=== PATIENT | male | born 1975 | race Caucasian/White ===

== ENCOUNTER 2020-09-15 13:13 | Outpatient (CLI) | payer OTHER, SELFPAY ==
--- NOTE | ~2020-09-15 | XR_ITS ---
XR lumbar spine 2-3V DATE: 09/15/2020 13:37 INDICATION: Chronic back pain TECHNIQUE: AP, lateral, coned lateral lumbosacral views COMPARISON: 04/19/2013 lumbar spine FINDINGS: Again noted is posterior and interbody spinal fusion at L5-S1. No interval hardware fractur e or displacement. No fracture or bone destruction is evident. There is spurring of the anterosuperior aspect of the fifth lumbar vertebral body. The lumbar intersp aces are relatively preserved however. The included lower thoracic and lumbar pedicles appear intact. The sacroiliac joints appear normal. IMPRESSION: Status post posterior and interbody spinal fusion at L5-S1; no significant interval khan e since 04/19/2013 Reviewed, dictated and finalized at location A. [employer] IMPRESSION: Status post posterior and interbody spinal fusion at L5-S1; no sign ificant interval change since 04/19/2013
== END 2020-09-15 13:14 | disposition home or self-care (01) ==
PROVIDERS: PCP Physician Assistant; Visit Provider Physician Assistant
DX: G89.29 Other chronic pain (principal); Z98.1 Arthrodesis status
CPT/HCPCS: 72100

== ENCOUNTER 2021-04-18 16:22 | Emergency (ER) | payer OTHER, SELFPAY ==
[2021-04-18 16:43] VITALS: BP 126/81; PULSE 79; RESP 16; TEMP 36.2; O2SAT 100
--- NOTE | 2021-04-18 16:44 | ED.ABDPAIN ---
HPI - Abdominal Pain General Chief Complaint: Abdominal Pain Stated Complaint: Abdominal Pain Time Seen by Provider: 04/18/21 16:44 Source: patient and RN notes reviewed Mode of arrival: ambulatory Limitations: no limitations History of Present Illness HPI narrative: 45-year-old male presents to the [facility] with complaints of left lower abdominal pain radiating into the left testicle. Denies any nausea vomiting or diarrhea last bowel movement was today, this morning which was normal. Patient denies any testicular swelling or redness. No issues with urination. States his last bowel movement was normal. Denies fevers, chest pain, abdominal pain. Patient reports the pain started yesterday. Has gradually gotten worse, took his home Vicodin with minimal to no relief. Related Data Allergies Allergy/AdvReac Type Severity Reaction Status Date / Time No Known Allergies Allergy Verified 10/26/18 19:01 Review of Systems Review of Systems: All systems reviewed & are unremarkable except as noted in HPI and below Constitutional: Constitutional: Reports no additional constitutional complaints, Denies chills and Denies fever(s) Eyes: Eyes: Reports no additional eye complaints ENT: Reports system reviewed and no additional complaints, except as documented Cardiovascular: Cardiovascular: Reports no additional cardiovascular complaints and Denies chest pain Respiratory: Respiratory: Reports no additional respiratory complaints, Denies cough and Denies dyspnea Gastrointestinal: Gastrointestinal: Reports abdominal pain (Left lower quadrant), Denies diarrhea, Denies nausea and Denies vomiting Genitourinary: Genitourinary: Reports no additional male genitourinary complaints and Reports testicular pain (Left) Musculoskeletal: Musculoskeletal: Reports no additional musculoskeletal complaints Integumentary/Breasts: Skin/Breast: Reports system reviewed and no additional complaints, except as docu Neurologic: Reports system reviewed and no additional complaints, except as documented Psychiatric: Psychiatric: Reports no additional psychiatric complaints Allergic/Immunologic: Allergic/Immunologic: Reports no additional allergic/immunologic complaints [facility] Past Medical History Medical History (Updated 04/18/21 @ 17:42 by Janie Banks) Asthma Hypertension Surgical History Surgical History (Updated 04/18/21 @ 17:42 by Janie Banks) No significant past surgical history Family History Family History Mother Family history of hepatitis Depression Asthma Family history of alcoholism Social History Social History (Reviewed 04/18/21 @ 17:42 by Janie Salguero Smoking status: Heavy tobacco smoker Second hand tobacco smoke exposure: Yes Alcohol intake: current Comments At the time of my signature, I reviewed and agree with the nursing past medical, surgical, social, and family history. There is no relevant family history pertinent to the patient complaint. Exam Const: General: healthy appearing, no acute distress and alert Nutritional Appearance: well nourished and obese Orientation/consciousness: patient oriented x3 Limitations: no limitations HENMT: Head: normal to inspection Eyes: Conjunctivae: conjunctivae normal Pupils: Equal, round and reactive pupils present Neck: Neck: normal visual inspection, no lymphadenopathy and no meningeal signs Chest: Chest palpation & inspection: normal inspection of the chest Resp: Effort & Inspection: normal respiratory effort and no use of accessory muscles Auscultation: clear to auscultation bilaterally, no crackles, no rales, no rhonchi and no wheezes Cardio: Rate: regular rate Rhythm: regular rhythm GI: GI Palp: Yes Soft to palpation, Yes Tenderness to palpation present (GI) (Left lower quadrant, pain radiates to the left testicle) and Yes Rebound tenderness present (Left lower quadrant) : General: Yes no CVA te
== END 2021-04-18 19:00 | disposition short-term general hospital (02) ==
PROVIDERS: Emergency Provider Nurse Practitioner
DX: R10.824 Left lower quadrant rebound abdominal tenderness (principal); I10 Essential (primary) hypertension; J45.909 Unspecified asthma, uncomplicated; F17.200 Nicotine dependence, unspecified, uncomplicated
CPT/HCPCS: 99212; G0463

== ENCOUNTER 2022-02-14 14:19 | Outpatient (CLI) | payer OTHER, SELFPAY ==
--- NOTE | ~2022-02-14 | US_ITS ---
EXAMINATION: US scrotum doppler DATE: 02/14/2022 15:38 INDICATION: Testicular pain and palpable abnormality. TECHNIQUE: Grayscale and Doppler ultrasound images of the testes were obtained. COMPARISON: None. FINDINGS: The right testis measures 5.5 x 2.4 x 3.0 cm. The left testis measures 5.2 x 2.5 x 3.3 cm. There is normal vascular flow to both testes. The right epididymis is normal with normal vascular mami w. The left epididymis contains a 4 mm cyst, otherwise normal appearance and color flow. No hydrocele s. Small varicocele on the left. IMPRESSION: 1. Small left varicocele. 2. Small left epididymal cyst. 3. No intratesticular mass. Reviewed, dictated and finalized at location [facility].
== END 2022-02-14 14:20 | disposition home or self-care (01) ==
PROVIDERS: PCP Physician Assistant; Visit Provider Physician Assistant
DX: N50.3 Cyst of epididymis (principal)
CPT/HCPCS: 76870; 93976

== ENCOUNTER 2022-02-21 14:34 | Outpatient (CLI) | payer OTHER, SELFPAY ==
--- NOTE | 2022-02-28 13:28 | WPDPFTINT ---
PFT Procedure Performed PFT Procedure Performed Plethysmography (Lung Vol) Diffusing Cap (DLCO) Flow Vol Loop Spirometry w/o Bronchodil PFT Interpretation DOS: 02/21/2022 REQUESTING: Amy Aguirre PA-C REASON FOR TESTING: mild asthma, COPD PULMONARY FUNCTION TESTS Results are reliable and reproducible. Spirometry: FEV1 53% predicted, 2.37 L, moderately reduced. FVC 76% predicted, 4.28 L, mildly reduced. FEV1/FVC is 55% predicted. This is consistent with airflow obstruction. JVR08-92% is 27%, severely decreased. No bronchodilator was administered. Lung volumes: Total lung capacity 103%, 7.76 L, normal. FRC is 122%, 4.71 L, normal. ERV is 64%, 1.17 L, decreased. Residual volume 165%, 3.45 L, elevated consistent with air trapping. RV/TLC is elevated 44% consistent with air trapping. Airway resistance elevated 405%. Diffusion: DLCO 76%, normal. DLCO/VA is 98%. Flow volume loop: Scooping of the expiratory limb consistent with airflow obstruction IMPRESSION: Moderate obstructive ventilatory impairment, severe air trapping, mild diffusion impairment without bronchodilator administration. In the proper clinical setting, this pattern may be consistent with asthma and COPD overlap. Noemy Flores MD
== END 2022-02-21 14:35 | disposition home or self-care (01) ==
LOC: ANHPFT 14:35
PROVIDERS: PCP Physician Assistant
DX: J45.30 Mild persistent asthma, uncomplicated (principal); R94.2 Abnormal results of pulmonary function studies
CPT/HCPCS: 94375; 94726; 94729

== ENCOUNTER 2022-05-03 13:11 | Emergency (ER) | payer OTHER, SELFPAY ==
[2022-05-03 13:26] VITALS: BP 162/111; PULSE 77; RESP 16; TEMP 36.7; O2SAT 98
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
[2022-05-03] MEDS: TETANUS,DIPHTHERIA,AC PERTUSSIS ADULT (0.5 ML) BOOSTRIX IM (14:49)
== END 2022-05-03 15:11 | disposition home or self-care (01) ==
PROVIDERS: Emergency Provider Nurse Practitioner; PCP Physician Assistant
DX: S05.02XA Injury of conjunctiva and corneal abrasion without foreign body, left eye, initial encounter (principal); W22.8XXA Striking against or struck by other objects, initial encounter; Z23 Encounter for immunization; J45.909 Unspecified asthma, uncomplicated; I10 Essential (primary) hypertension; F17.210 Nicotine dependence, cigarettes, uncomplicated
CPT/HCPCS: 90471; 90715; 99213; A9270; G0463

== ENCOUNTER 2023-03-02 09:41 | Outpatient (CLI) | payer OTHER, SELFPAY ==
--- NOTE | ~2023-03-02 | XR_ITS ---
XR_CERV2-3V_CR DATE: 03/02/2023 10:02 INDICATION: Right arm numbness TECHNIQUE: AP, open-mouth, lateral views COMPARISON: None FINDINGS: There is straightening of the cervical spine which may be due to muscle spasm. C1 and C2 are normally aligned and the odontoid process is intact. There is anterior spurring but preservation of disc spaces at C2-3, C3-4, C4-5 and C5-6. Moderate degenerative disc disease at C6-7, with posterior spurring. There is uncovertebral joint spu rring in particular on the right at C6-7. No fracture or dislocation or locked facet or prevertebral soft tissue swelling. IMPRESSION: Straightening of the cervical spine which may be due to muscle spasm Mild to moderate cervical spondylosis Prominent uncovertebral joint spurring on the right at C6-7, which would encroach upon the right C7 n eural foramen Reviewed, dictated and finalized at Location [facility]. Reviewed, dictated and finalized at location B. IMPRESSION: Straightening of the cervical spine which may be due to muscle spas m Mild to moderate cervical spondylosis Prominent uncovertebral joint spurring on the right at C6-7, which would encroa ch upon the right C7 neural foramen
== END 2023-03-02 09:42 | disposition home or self-care (01) ==
PROVIDERS: PCP Physician Assistant; Visit Provider Physician Assistant
DX: M47.22 Other spondylosis with radiculopathy, cervical region (principal)
CPT/HCPCS: 72040

== ENCOUNTER 2023-07-30 19:30 | Emergency (ER) | payer OTHER, SELFPAY ==
--- NOTE | ~2023-07-30 | XR_ITS ---
EXAMINATION: XR chest 2V 07/30/2023 19:45 INDICATION: Shortness of breath. COPD. PROCEDURE: PA and lateral views of the chest COMPARISON: 12/04/2016 FINDINGS: The lungs are clear. The cardiomediastinal silhouette is within normal limits. There are no pleural effusions. There is no pneumothorax suspected. IMPRESSION: 1: NO ACUTE CARDIOPULMONARY DISEASE. Reviewed, dictated and finalized at location A. [employer]
[2023-07-30 19:37] VITALS: BP 188/99; PULSE 87; RESP 16; TEMP 36.7; O2SAT 100
--- NOTE | 2023-07-30 19:39 | ECG_ITS ---
Measurements Intervals [place] Rate: 76 P: 68 TN: 168 QRS: 80 QRSD: 99 T: 57 QT: 361 QTc: 407 Interpretive Statements SINUS RHYTHM NO PREVIOUS ECG AVAILABLE FOR COMPARISON Electronically Signed On 07-31-2023 13:28:45 [employer] by Andrea Harry M.D.
--- NOTE | 2023-07-30 19:51 | ED.SOB ---
HPI - SOB/Dyspnea General Chief Complaint: Shortness of Breath/Dyspnea Stated Complaint: SOB/Sinus Time Seen by Provider: 07/30/23 19:51 Source: patient Mode of arrival: ambulatory Limitations: no limitations History of Present Illness HPI Narrative: 47-year-old male presents with cough for 1 week. Reports shortness breath with exertion starting today. Afebrile. Patient is current everyday smoker. History of COPD. Using Symbicort twice a day and albuterol inhaler. Concerned he may have pneumonia. Patient's blood pressure elevated today. States he is not taking his medication for several days because he often forgets. Denies chest pain. All systems reviewed and negative except as noted above. Related Data Home Medications Medication Instructions Recorded Confirmed albuterol sulfate 90 mcg/actuation 90 mcg inhalation DIRECTED 05/03/22 07/30/23 aerosol inhaler (ProAir HFA) budesonide-formoterol HFA 160 160 inh inhalation DIRECTED 05/03/22 07/30/23 mcg-4.5 mcg/actuation aerosol inhaler (Symbicort) lisinopril 10 1 tablet PO DIRECTED 05/03/22 07/30/23 mg-hydrochlorothiazide 12.5 mg tablet Allergies Allergy/AdvReac Type Severity Reaction Status Date / Time No Known Allergies Allergy Verified 07/30/23 19:34 Review of Systems Review of Systems: CONSTITUTIONAL: Denies fever, chills, or sweats. EYES: Denies visual changes, redness, or discharge. ENT: Denies rhinorrhea, congestion, sore throat, or otalgia. CARDIOVASCULAR: Denies chest pain, palpitations, or edema. RESPIRATORY: Reports cough and dyspnea with exertion. GASTROINTESTINAL: Denies abdominal pain, nausea, vomiting, or diarrhea. GENITOURINARY: Denies dysuria or hematuria. SKIN: Denies rash or itching. MUSCULOSKELETAL: Denies back pain, joint pain, or myalgia. NEUROLOGIC: Denies headache, numbness, or weakness. PSYCHIATRIC: Denies anxiety or depression. All other systems reviewed are negative, except as documented in HPI. [facility] Past Medical History Medical History Asthma Hypertension Surgical History Surgical History No significant past surgical history Family History Family History Mother Family history of hepatitis Depression Asthma Family history of alcoholism Social History Social History Smoking packs per day: 1 Smoking cigarettes per day: 20.0 Smoking status: Heavy tobacco smoker Second hand tobacco smoke exposure: Yes Alcohol intake: current Substance use: current Substance use type: marijuana Gender identity (if verbalized by the patient): Male Spiritual care concerns: No Comments At time of signature, agree with nursing past medical, surgical, social and family history. There is no relevant family history pertinent to the presenting complaint. Exam Narrative: GENERAL: This is a well-nourished, well-developed patient, in no apparent distress. HEAD: normocephalic, atraumatic. EYES: PERRL. Sclera clear/white. Vision is grossly intact. EARS: External ears normal, auditory canals clear and without drainage, TMs normal without perforation. Hearing grossly intact. NOSE: External nose normal with no obvious nasal discharge, nares without redness, no rhinorrhea. THROAT: Mucous membranes moist, posterior pharynx clear. NECK: Neck supple, non-tender without lymphadenopathy, masses or thyromegaly. CARDIOVASCULAR: Regular rate and rhythm without murmurs, gallops, or rubs. RESPIRATORY: coarse lung sounds throughout all lung morales. Breath sounds equal bilaterally. No wheezes, rales SKIN: warm, Dry, intact with no suspicious lesions or rash, good texture and turgor. NEURO: awake, alert, and oriented to person, place and time. There were no obvious foca
[2023-07-30] MEDS: IPRATROPIUM BR 0.02% INH SOLN 0.5 MG/2.5 ML VIAL INHALATION (20:00)
[2023-07-30] MEDS: ALBUTEROL SULFATE NEB 2.5 MG/3 ML INH INHALATION (20:00)
[2023-07-30] MEDS: predniSONE 20 MG TABLET 40 MG PO (20:04)
[2023-07-30 20:20] VITALS: BP 154/73
== END 2023-07-30 20:30 | disposition home or self-care (01) ==
PROVIDERS: Emergency Provider Nurse Practitioner Family; PCP Physician Assistant
DX: J20.9 Acute bronchitis, unspecified (principal); J44.9 Chronic obstructive pulmonary disease, unspecified; I10 Essential (primary) hypertension; J45.909 Unspecified asthma, uncomplicated; F17.210 Nicotine dependence, cigarettes, uncomplicated; Z79.899 Other long term (current) drug therapy
CPT/HCPCS: 71046; 93005; 99213; G0463; J7512

== ENCOUNTER 2023-11-29 16:14 | Emergency (ER) | payer OTHER, SELFPAY ==
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
[2023-11-29 16:24] VITALS: BP 140/89; PULSE 81; RESP 16; TEMP 36.6; O2SAT 100
== END 2023-11-29 16:40 | disposition home or self-care (01) ==
PROVIDERS: Emergency Provider Nurse Practitioner; PCP Physician Assistant
DX: T21.12XA Burn of first degree of abdominal wall, initial encounter (principal); X11.8XXA Contact with other hot tap-water, initial encounter; Y99.0 Civilian activity done for income or pay; F17.210 Nicotine dependence, cigarettes, uncomplicated; F12.90 Cannabis use, unspecified, uncomplicated; J45.909 Unspecified asthma, uncomplicated; I10 Essential (primary) hypertension
CPT/HCPCS: 99212; G0463

== ENCOUNTER 2024-08-11 09:09 | Emergency (ER) | payer OTHER, SELFPAY ==
--- NOTE | ~2024-08-11 | XR_ITS ---
EXAMINATION: XR chest 2V DATE: 08/11/2024 10:23 INDICATION: 5 days of cough TECHNIQUE: PA and lateral views of the chest were obtained. COMPARISON: Chest radiograph dated 07/30/2023 FINDINGS: The lungs remain clear with no focal airspace opacities, pulmonary edema, pleural effusion or pneumot horax. The cardiomediastinal silhouette is normal. Mild thoracic spondylosis. IMPRESSION: 1. No acute cardiopulmonary disease. Reviewed, dictated and finalized at location [facility]. [facility]
[2024-08-11 09:17] VITALS: BP 110/85; PULSE 81; RESP 20; TEMP 36.5; O2SAT 98
--- NOTE | 2024-08-11 09:25 | ED.GENADULT ---
HPI - General Adult General Chief complaint: Upper Respiratory Infection Stated complaint: SOB/Asthma/Cough Time Seen by Provider: 08/11/24 09:45 History of Present Illness HPI narrative: Patient with asthma presents with complaints of cough, wheezing, shortness of breath. He reports symptoms have been present for about 5 days. He reports some associated chills and sweats. Has not taken his temperature. He has been taking all inhalers as prescribed. He works in public, is concerned about flu, COVID, pneumonia. Related Data Home Medications ?Medication ?Instructions ?Recorded ?Confirmed ?Last Taken ?Type albuterol sulfate 90 mcg/actuation 90 mcg inhalation DIRECTED 05/03/22 11/29/23 Unknown History aerosol inhaler (ProAir HFA) budesonide-formoterol HFA 160 160 inh inhalation DIRECTED 05/03/22 11/29/23 Unknown History mcg-4.5 mcg/actuation aerosol inhaler (Symbicort) lisinopril 20 mg tablet 20 mg PO DAILY 11/29/23 11/29/23 Unknown History Allergies Allergy/AdvReac Type Severity Reaction Status Date / Time No Known Allergies Allergy Verified 11/29/23 16:16 Review of Systems Review of Systems: All systems reviewed & are unremarkable except as noted in HPI and below Constitutional: Constitutional: Reports no additional constitutional complaints and Reports lethargy ENT: Reports system reviewed and no additional complaints, except as documented Cardiovascular: Cardiovascular: Reports no additional cardiovascular complaints Respiratory: Respiratory: Reports no additional respiratory complaints, Reports chest congestion, Reports cough, Reports dyspnea on exertion and Reports wheezing Gastrointestinal: Gastrointestinal: Reports no additional gastrointestinal complaints [facility] Past Medical History Medical History Hypertension Asthma Surgical History Surgical History No significant past surgical history Family History Family History Mother Family history of hepatitis Depression Asthma Family history of alcoholism Social History Social History Smoking packs per day: 1 Smoking cigarettes per day: 20.0 Smoking status: Heavy tobacco smoker Second hand tobacco smoke exposure: Yes Alcohol intake: current Substance use: current Substance use type: marijuana Gender identity (if verbalized by the patient): Male Spiritual care concerns: No Exam Const: General: cooperative, no acute distress, alert and awake Orientation/consciousness: oriented to person, oriented to place and oriented to time HENMT: Head: normal to inspection Mouth: Yes moist mucous membranes Resp: Effort & Inspection: normal respiratory effort and able to speak in complete sentences Auscultation: clear to auscultation bilaterally, no crackles, no rales, no rhonchi and wheezes scattered wheezes Cardio: Palpation: normal PMI Rate: regular rate Rhythm: regular rhythm Heart sounds: S1 normal heart sound present and S2 normal heart sound present Neuro: General: oriented to person, oriented to place and oriented to time Cranial nerves: Yes CN's II-XII intact bilaterally Psych: Appearance: grossly normal Thought process: Normal thought process present Insight: Good insight present (Psych) Judgement: Good judgement present (Psych) Course Course Level of Care: Express Care Visit Vital Signs Vital signs: Vital Signs Temperature 97.7 F 08/11/24 09:17 Pulse Rate 81 08/11/24 09:17 Respiratory Rate 20 08/11/24 09:17 Blood Pressure 110/85 08/11/24 09:17 Pulse Oximetry 98 08/11/24 09:17 Temperature 97.7 F 08/11/24 09:17 Pulse Rate 81 08/11/24 09:17 Respiratory Rate 20 08/11/24 09:17 Blood Pressure 110/85 08/11/24 09:17 Pulse Oximetry 98 08/11/24 09:17 Medical Decision Making [facility] Narrative Medical decision making narrative: Patient with asthma presents with symptoms of exacerbation. Negative COVID, negative flu. Chest x-ray without acute findings. Has been using inhalers as prescribed. Start prednisone, azithromycin additive anti-inflammatory effect. Patient is nontoxic appearing and in no distress. Discharge instructions reviewed with patient, as well as provided in writing per nursing staff. The instructions also include specific and strict return/GO TO THE ER as well as f/u information. All questions have been answered, and the patient deny any further questions with discharge and discharge plan. Some parts of this dictation were generated by voice recognition software and may contain typographical and/or grammatical inaccuracies. Differential Diagnosis Differential Diagnosis: Influenza, COVID, viral illness, pneumonia Medical Records Medical records reviewed: Yes I reviewed the external patient's medical records. Vital Signs Vital Signs: Vital Signs Temperature 97.7 F 08/11/24 09:17 Pulse Rate 81 08/11/24 09:17 Respiratory Rate 20 08/11/24 09:17 Blood Pressure 110/85 08/11/24 09:17 Pulse Oximetry 98 08/11/24 09:17 Temperature 97.7 F 08/11/24 09:17 Pulse Rate 81 08/11/24 09:17 Respiratory Rate 20 08/11/24 09:17 Blood Pressure 110/85 08/11/24 09:17 Pulse Oximetry 98 08/11/24 09:17 Lab Data Labs: Lab Results 08/11/24 Range/Units 09:20 POC Influenza A Ag Negative (Negative) POC Influenza B Ag Negative (Negative) POC SARS CoV-2 Ag Negative (Negative) Imaging Data My impression: No acute finding Radiologist's impression: [facility] [address] [place] [address] XRay Report Signed Patient: Fito Jimenez : 1975 MR#: [id number] Age: 48 Acct:[id number] Loc: [facility] ADM Date: 08/11/24Attending Dr: Ordering Physician: Matilde Gomez FNP Date of Service: 08/11/24 Procedure(s): XR chest 2V Accession Number(s): [id number] cc: Matilde Gomez FNP; Raheem, Brianda De La Rosa PA-C~ EXAMINATION: XR chest 2V DATE: 08/11/2024 10:23 INDICATION: 5 days of cough TECHNIQUE: PA and lateral views of the chest were obtained. COMPARISON: Chest radiograph dated 07/30/2023 FINDINGS: The lungs remain clear with no focal airspace opacities, pulmonary edema, pleural effusion or pneumothorax. The cardiomediastinal silhouette is normal. Mild thoracic spondylosis. IMPRESSION: 1. No acute cardiopulmonary disease. Reviewed, dictated and finalized at location [facility] signed by Chet Marrero M.D. 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 Follow-up with primary care provider. Emergency department for new or worse symptoms Patient Language: Nepali Prescriptions: New prednisone 50 mg tablet 50 mg PO DAILY Qty: 4 0RF azithromycin 250 mg tablet See Rx Instructions .ROUTE .COMPLEX Qty: 6 0RF Rx Instructions: For 250 mg dose pack: take 500 mg today (day 1), then 250 mg for 4 days (days 2-5) albuterol sulfate [Ventolin HFA] 90 mcg/actuation HFA aerosol inhaler 2 puff inhalation QID PRN (Reason: shortness of breath or wheezing) Qty: 8.5 0RF No Action albuterol sulfate [ProAir HFA] 90 mcg/actuation HFA aerosol inhaler 90 mcg INHALATION DIRECTED budesonide-formoterol [Symbicort] 160-4.5 mcg/actuation HFA aerosol inhaler 160 inh INHALATION DIRECTED lisinopril 20 mg tablet 20 mg PO DAILY Follow-up/Referrals: Raheem,ROYA Lemon [Primary Care Provider] - 2 Weeks Stand Alone Forms: Work/School Release IP Time of Disposition: 10:55
[2024-08-11 10:14] LABS: EDCOVIDSCREEN Negative (Negative); EDINFLUASCREEN Negative (Negative); EDINFLUBSCREEN Negative (Negative)
[2024-08-11] MEDS: predniSONE 20 MG TABLET 60 MG PO (10:52)
== END 2024-08-11 11:08 | disposition home or self-care (01) ==
PROVIDERS: Emergency Provider Nurse Practitioner Family; PCP Physician Assistant
DX: J45.901 Unspecified asthma with (acute) exacerbation (principal); Z20.822 Contact with and (suspected) exposure to COVID-19; I10 Essential (primary) hypertension; F17.210 Nicotine dependence, cigarettes, uncomplicated; F12.90 Cannabis use, unspecified, uncomplicated
CPT/HCPCS: 71046; 87426; 87804; 99213; G0463; J7512

== ENCOUNTER 2024-10-20 14:42 | Emergency (ER) | payer MEDICAID, SELFPAY ==
[2024-10-20 14:45] VITALS: BP 148/99; PULSE 97; RESP 18; TEMP 36.3; O2SAT 98
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
[2024-10-20 16:40] VITALS: BP 113/72; PULSE 89; RESP 15; TEMP 36.5; O2SAT 98
--- OUTSIDE RECORDS SUMMARY | 2024-10-20 17:12 | XMS_ITS | Referral Summary ---
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 C6-C7. No soft tissue abnormality is identified. Thoracic spine: Mild exaggeration of the thoracic kyphosis. Slight dextrocurvature of the thoracic spine. The alignment is otherwise maintained. The bones are mildly osteopenic. Vertebral bodies are normal in height without evidence of acute fracture. Bridging anterior osteophytes from T6 through T10 can be seen in diffuse idiopathic skeletal hyperostosis. There is up to moderate multilevel degenerative disc disease. Schmorl's nodes are present at multiple levels. The central canal is patent. There are varying degrees of mild facet osteoarthritis with the same degree of neural foraminal stenosis at these levels. No soft tissue abnormality is identified. Lumbar spine: Postoperative findings of posterior spinal fusion with bilateral rods and transpedicular screws and intervertebral disc fusion device at L5-S1 with associated laminectomy of L5 on S1. There is mild anterolisthesis of L4 on L5 but there is postoperative fusion as outlined above. The hardware appears intact. The bones are mildly osteopenic. Vertebral bodies are normal in height without evidence of acute fracture. There is mild multilevel degenerative disc disease. Mild spinal canal narrowing is noted. The high-grade central canal is patent. There are varying degrees of mild facet osteoarthritis with the same degree of neural foraminal stenosis at these levels. There is atherosclerotic calcification of the abdominal aorta and its branch vessels. Multiple hypodensities in the right kidney likely represent renal cysts. Partially visualized diverticulosis. Procedure Note Braden Garza MD - 10/08/2024 PROCEDURE: CT CERVICAL SPINE WO CONTRAST, CT THORACIC SPINE WOCONTRAST, CT LUMBAR SPINE WO CONTRAST, DATE/TIME OF EXAM: 10/08/2024 6:14 PM, LOCATION [facility] INDICATION: Trauma ADDITIONAL CLINICAL INFORMATION: Ordering Provider Reason For Exam: Trauma. Technologist Note: None. Additional: None. EXAMINATION: 1.Computed tomography (CT) of the cervical spine without contrast 2.CT of the thoracic spine without contrast 3.CT of the lumbar spine without contrast TECHNIQUE: CT of the cervical, thoracic, and lumbar spine was performed without contrast according to standard protocol. CT dose reduction technique was used, including Automated Exposure Control. COMPARISON: No prior study is available for comparison at the time ofthis dictation. FINDINGS: Cervical spine: The cervical spine is straightened with loss of cervical lordosis. The prevertebral soft tissue is normal in thickness. The mineralization ofthe bones is normal. Vertebral bodies are normal in height without evidenceof acute fracture. The craniocervical junction is normal. There is mild to moderate multilevel degenerative disc disease. Mild central canalstenosis is present in C4-C5, C6-7 secondary to osteophyte formation andbroad-based disc bulge There are varying degrees of mild facet osteoarthritis. There are varying degrees of mild to moderate multilevel uncovertebral joint osteoarthritis with the same degree of neural foraminal stenosis atthese levels most notable in C5-C6, and C6-C7. No soft tissue abnormality is identified. Thoracic spine: Mild exaggeration of the thoracic kyphosis. Slight dextrocurvature ofthe thoracic spine. The alignment is otherwise maintained. The bones aremildly osteopenic. Vertebral bodies are normal in height without evidence ofacute fracture. Bridging anterior osteophytes from T6 through T10 can be seenin diffuse idiopathic skeletal hyperostosis. There is up to moderate multilevel degenerative disc disease. Schmorl's nodes are present at multiple levels. The central canal is patent. There are varying degreesof mild facet osteoarthritis with the same degree of neural foraminalstenosis at these levels. No soft tissue abnormality is identified. Lumbar spine: Postoperative findings of posterior spinal fusion with bilateral rodsand transpedicular screws and intervertebral disc fusion device at L5-S1with associated laminectomy of L5 on S1. There is mild anterolisthesis of L4on L5 but there is postoperative fusion as outlined above. The hardware appears intact. The bones are mildly osteopenic. Vertebral bodies are normal in height without evidence of acute fracture. There is mild multilevel degenerative disc disease. Mild spinal canal narrowing isnoted. The high-grade central canal is patent. There are varying degrees ofmild facet osteoarthritis with the same degree of neural foraminal stenosisat these levels. There is atherosclerotic calcification of the abdominalaorta and its branch vessels. Multiple hypodensities in the right kidneylikely represent renal cysts. Partially visualized diverticulosis. IMPRESSION: 1.No evidence of acute fracture in the cervical, thoracic, or lumbarspine. 2.Please refer to the concurrent, dedicated body report for findings inthe chest, abdomen, and pelvis. The report is dictated by Caron Jimenes MD (residential sales executive) I, Braden Garza MD have personally reviewed and interpretedthis examination/study. > Interpreting Provider: Braden Garza MD on 10/08/2024 7:23 PM Moncho Kramer MD CT ORDERABLES * CT THORACIC SPINE WO CONTRAST - T/L-spine trauma, spine fracture (10/08/2024 6:14 PM PAYMENT SPECIALIST) Anatomical Region Laterality Modality Spine Computed Tomogra phy 10/08/2024 6:23 PM PAYMENT SPECIALIST Impressions 10/08/2024 7:23 PM PAYMENT SPECIALIST IMPRESSION: 1.No evidence of acute fracture in the cervical, thoracic, or lumbar spine. 2.Please refer to the concurrent, dedicated body report for findings in the chest, abdomen, and pelvis. The report is dictated by Caron Jimenes MD (residential sales executive) Braden Levi MD have personally reviewed and interpreted this examination/study. > Interpreting Provider: Braden Garza MD on 10/08/2024 7:23 PM Narrative 10/08/2024 7:23 PM PAYMENT SPECIALIST PROCEDURE: CT CERVICAL SPINE WO CONTRAST, CT THORACIC SPINE WO CONTRAST, CT LUMBAR SPINE WO CONTRAST, DATE/TIME OF EXAM: 10/08/2024 6:14 PM, LOCATION [facility] INDICATION: Trauma ADDITIONAL CLINICAL INFORMATION: Ordering Provider Reason For Exam: Trauma. Technologist Note: None. Additional: None. EXAMINATION: 1.Computed tomography (CT) of the cervical spine without contrast 2.CT of the thoracic spine without contrast 3.CT of the lumbar spine without contrast TECHNIQUE: CT of the cervical, thoracic, and lumbar spine was performed without contrast according to standard protocol. CT dose reduction technique was used, including Automated Exposure Control. COMPARISON: No prior study is available for comparison at the time of this dictation. FINDINGS: Cervical spine: The cervical spine is straightened with loss of cervical lordosis. The prevertebral soft tissue is normal in thickness. The mineralization of the bones is normal. Vertebral bodies are normal in height without evidence of acute fracture. The craniocervical junction is normal. There is mild to moderate multilevel degenerative disc disease. Mild central canal stenosis is present in C4-C5, C6-7 secondary to osteophyte formation and broad-based disc bulge There are varying degrees of mild facet osteoarthritis. There are varying degrees of mild to moderate multilevel uncovertebral joint osteoarthritis with the same degree of neural foraminal stenosis at these levels most notable in C5-C6, and C6-C7. No soft tissue abnormality is identified. Thoracic spine: Mild exaggeration of the thoracic kyphosis. Slight dextrocurvature of the thoracic spine. The alignment is otherwise maintained. The bones are mildly osteopenic. Vertebral bodies are normal in height without evidence of acute fracture. Bridging anterior osteophytes from T6 through T10 can be seen in diffuse idiopathic skeletal hyperostosis. There is up to moderate multilevel degenerative disc disease. Schmorl's nodes are present at multiple levels. The central canal is patent. There are varying degrees of mild facet osteoarthritis with the same degree of neural foraminal stenosis at these levels. No soft tissue abnormality is identified. Lumbar spine: Postoperative findings of posterior spinal fusion with bilateral rods and transpedicular screws and intervertebral disc fusion device at L5-S1 with associated laminectomy of L5 on S1. There is mild anterolisthesis of L4 on L5 but there is postoperative fusion as outlined above. The hardware appears intact. The bones are mildly osteopenic. Vertebral bodies are normal in height without evidence of acute fracture. There is mild multilevel degenerative disc disease. Mild spinal canal narrowing is noted. The high-grade central canal is patent. There are varying degrees of mild facet osteoarthritis with the same degree of neural foraminal stenosis at these levels. There is atherosclerotic calcification of the abdominal aorta and its branch vessels. Multiple hypodensities in the right kidney likely represent renal cysts. Partially visualized diverticulosis. Procedure Note Braden Garza MD - 10/08/2024 PROCEDURE: CT CERVICAL SPINE WO CONTRAST, CT THORACIC SPINE WOCONTRAST, CT LUMBAR SPINE WO CONTRAST, DATE/TIME OF EXAM: 10/08/2024 6:14 PM, LOCATION [facility] INDICATION: Trauma ADDITIONAL CLINICAL INFORMATION: Ordering Provider Reason For Exam: Trauma. Technologist Note: None. Additional: None. EXAMINATION: 1.Computed tomography (CT) of the cervical spine without contrast 2.CT of the thoracic spine without contrast 3.CT of the lumbar spine without contrast TECHNIQUE: CT of the cervical, thoracic, and lumbar spine was performed without contrast according to standard protocol. CT dose reduction technique was used, including Automated Exposure Control. COMPARISON: No prior study is available for comparison at the time ofthis dictation. FINDINGS: Cervical spine: The cervical spine is straightened with loss of cervical lordosis. The prevertebral soft tissue is normal in thickness. The mineralization ofthe bones is normal. Vertebral bodies are normal in height without evidenceof acute fracture. The craniocervical junction is normal. There is mild to moderate multilevel degenerative disc disease. Mild central canalstenosis is present in C4-C5, C6-7 secondary to osteophyte formation andbroad-based disc bulge There are varying degrees of mild facet osteoarthritis. There are varying degrees of mild to moderate multilevel uncovertebral joint osteoarthritis with the same degree of neural foraminal stenosis atthese levels most notable in C5-C6, and C6-C7. No soft tissue abnormality is identified. Thoracic spine: Mild exaggeration of the thoracic kyphosis. Slight dextrocurvature ofthe thoracic spine. The alignment is otherwise maintained. The bones aremildly osteopenic. Vertebral bodies are normal in height without evidence ofacute fracture. Bridging anterior osteophytes from T6 through T10 can be seenin diffuse idiopathic skeletal hyperostosis. There is up to moderate multilevel degenerative disc disease. Schmorl's nodes are present at multiple levels. The central canal is patent. There are varying degreesof mild facet osteoarthritis with the same degree of neural foraminalstenosis at these levels. No soft tissue abnormality is identified. Lumbar spine: Postoperative findings of posterior spinal fusion with bilateral rodsand transpedicular screws and intervertebral disc fusion device at L5-S1with associated laminectomy of L5 on S1. There is mild anterolisthesis of L4on L5 but there is postoperative fusion as outlined above. The hardware appears intact. The bones are mildly osteopenic. Vertebral bodies are normal in height without evidence of acute fracture. There is mild multilevel degenerative disc disease. Mild spinal canal narrowing isnoted. The high-grade central canal is patent. There are varying degrees ofmild facet osteoarthritis with the same degree of neural foraminal stenosisat these levels. There is atherosclerotic calcification of the abdominalaorta and its branch vessels. Multiple hypodensities in the right kidneylikely represent renal cysts. Partially visualized diverticulosis. IMPRESSION: 1.No evidence of acute fracture in the cervical, thoracic, or lumbarspine. 2.Please refer to the concurrent, dedicated body report for findings inthe chest, abdomen, and pelvis. The report is dictated by Caron Jimenes MD (residential sales executive) I, Braden Garza MD have personally reviewed and interpretedthis examination/study. > Interpreting Provider: Braden Garza MD on 10/08/2024 7:23 PM Moncho Kramer MD CT ORDERABLES * CT CERVICAL SPINE WO CONTRAST - C-Spine Trauma, Spine fracture (10/08/2024 6:14 PM PAYMENT SPECIALIST) Anatomical Region Laterality Modality Spine Computed Tomogra phy 10/08/2024 6:23 PM PAYMENT SPECIALIST Impressions 10/08/2024 7:23 PM PAYMENT SPECIALIST IMPRESSION: 1.No evidence of acute fracture in the cervical, thoracic, or lumbar spine. 2.Please refer to the concurrent, dedicated body report for findings in the chest, abdomen, and pelvis. The report is dictated by Caron Jimenes MD (residential sales executive) I, Braden Garza MD have personally reviewed and interpreted this examination/study. > Interpreting Provider: Braden Garza MD on 10/08/2024 7:23 PM Narrative 10/08/2024 7:23 PM PAYMENT SPECIALIST PROCEDURE: CT CERVICAL SPINE WO CONTRAST, CT THORACIC SPINE WO CONTRAST, CT LUMBAR SPINE WO CONTRAST, DATE/TIME OF EXAM: 10/08/2024 6:14 PM, LOCATION [facility] INDICATION: Trauma ADDITIONAL CLINICAL INFORMATION: Ordering Provider Reason For Exam: Trauma. Technologist Note: None. Additional: None. EXAMINATION: 1.Computed tomography (CT) of the cervical spine without contrast 2.CT of the thoracic spine without contrast 3.CT of the lumbar spine without contrast TECHNIQUE: CT of the cervical, thoracic, and lumbar spine was performed without contrast according to standard protocol. CT dose reduction technique was used, including Automated Exposure Control. COMPARISON: No prior study is available for comparison at the time of this dictation. FINDINGS: Cervical spine: The cervical spine is straightened with loss of cervical lordosis. The prevertebral soft tissue is normal in thickness. The mineralization of the bones is normal. Vertebral bodies are normal in height without evidence of acute fracture. The craniocervical junction is normal. There is mild to moderate multilevel degenerative disc disease. Mild central canal stenosis is present in C4-C5, C6-7 secondary to osteophyte formation and broad-based disc bulge There are varying degrees of mild facet osteoarthritis. There are varying degrees of mild to moderate multilevel uncovertebral joint osteoarthritis with the same degree of neural foraminal stenosis at these levels most notable in C5-C6, and C6-C7. No soft tissue abnormality is identified. Thoracic spine: Mild exaggeration of the thoracic kyphosis. Slight dextrocurvature of the thoracic spine. The alignment is otherwise maintained. The bones are mildly osteopenic. Vertebral bodies are normal in height without evidence of acute fracture. Bridging anterior osteophytes from T6 through T10 can be seen in diffuse idiopathic skeletal hyperostosis. There is up to moderate multilevel degenerative disc disease. Schmorl's nodes are present at multiple levels. The central canal is patent. There are varying degrees of mild facet osteoarthritis with the same degree of neural foraminal stenosis at these levels. No soft tissue abnormality is identified. Lumbar spine: Postoperative findings of posterior spinal fusion with bilateral rods and transpedicular screws and intervertebral disc fusion device at L5-S1 with associated laminectomy of L5 on S1. There is mild anterolisthesis of L4 on L5 but there is postoperative fusion as outlined above. The hardware appears intact. The bones are mildly osteopenic. Vertebral bodies are normal in height without evidence of acute fracture. There is mild multilevel degenerative disc disease. Mild spinal canal narrowing is noted. The high-grade central canal is patent. There are varying degrees of mild facet osteoarthritis with the same degree of neural foraminal stenosis at these levels. There is atherosclerotic calcification of the abdominal aorta and its branch vessels. Multiple hypodensities in the right kidney likely represent renal cysts. Partially visualized diverticulosis. Procedure Note Braden Garza MD - 10/08/2024 PROCEDURE: CT CERVICAL SPINE WO CONTRAST, CT THORACIC SPINE WOCONTRAST, CT LUMBAR SPINE WO CONTRAST, DATE/TIME OF EXAM: 10/08/2024 6:14 PM, LOCATION [facility] INDICATION: Trauma ADDITIONAL CLINICAL INFORMATION: Ordering Provider Reason For Exam: Trauma. Technologist Note: None. Additional: None. EXAMINATION: 1.Computed tomography (CT) of the cervical spine without contrast 2.CT of the thoracic spine without contrast 3.CT of the lumbar spine without contrast TECHNIQUE: CT of the cervical, thoracic, and lumbar spine was performed without contrast according to standard protocol. CT dose reduction technique was used, including Automated Exposure Control. COMPARISON: No prior study is available for comparison at the time ofthis dictation. FINDINGS: Cervical spine: The cervical spine is straightened with loss of cervical lordosis. The prevertebral soft tissue is normal in thickness. The mineralization ofthe bones is normal. Vertebral bodies are normal in height without evidenceof acute fracture. The craniocervical junction is normal. There is mild to moderate multilevel degenerative disc disease. Mild central canalstenosis is present in C4-C5, C6-7 secondary to osteophyte formation andbroad-based disc bulge There are varying degrees of mild facet osteoarthritis. There are varying degrees of mild to moderate multilevel uncovertebral joint osteoarthritis with the same degree of neural foraminal stenosis atthese levels most notable in C5-C6, and C6-C7. No soft tissue abnormality is identified. Thoracic spine: Mild exaggeration of the thoracic kyphosis. Slight dextrocurvature ofthe thoracic spine. The alignment is otherwise maintained. The bones aremildly osteopenic. Vertebral bodies are normal in height without evidence ofacute fracture. Bridging anterior osteophytes from T6 through T10 can be seenin diffuse idiopathic skeletal hyperostosis. There is up to moderate multilevel degenerative disc disease. Schmorl's nodes are present at multiple levels. The central canal is patent. There are varying degreesof mild facet osteoarthritis with the same degree of neural foraminalstenosis at these levels. No soft tissue abnormality is identified. Lumbar spine: Postoperative findings of posterior spinal fusion with bilateral rodsand transpedicular screws and intervertebral disc fusion device at L5-S1with associated laminectomy of L5 on S1. There is mild anterolisthesis of L4on L5 but there is postoperative fusion as outlined above. The hardware appears intact. The bones are mildly osteopenic. Vertebral bodies are normal in height without evidence of acute fracture. There is mild multilevel degenerative disc disease. Mild spinal canal narrowing isnoted. The high-grade central canal is patent. There are varying degrees ofmild facet osteoarthritis with the same degree of neural foraminal stenosisat these levels. There is atherosclerotic calcification of the abdominalaorta and its branch vessels. Multiple hypodensities in the right kidneylikely represent renal cysts. Partially visualized diverticulosis. IMPRESSION: 1.No evidence of acute fracture in the cervical, thoracic, or lumbarspine. 2.Please refer to the concurrent, dedicated body report for findings inthe chest, abdomen, and pelvis. The report is dictated by Caron Jimenes MD (residential sales executive) I, Braden Garza MD have personally reviewed and interpretedthis examination/study. > Interpreting Provider: Braden Garza MD on 10/08/2024 7:23 PM Moncho Kramer MD CT ORDERABLES * CT FACIAL BONES WO CONTRAST - Facial trauma, fx suspected, blunt (10/08/2024 6:14 PM PAYMENT SPECIALIST) Anatomical Region Laterality Modality Head Computed Tomogra phy 10/08/2024 5:38 PM PAYMENT SPECIALIST Impressions 10/08/2024 7:08 PM PAYMENT SPECIALIST IMPRESSION: 1.Acute nondisplaced fracture of the right zygomatic arch. 2.Medially displaced blowout fracture of the right lamina papyracea involving the right ethmoidal septa. No evidence of entrapment. Multiple foci of air present in the right medial extraconal space. The bilateral globes are intact. 3.Mildly displaced nasal bone and nasal process of the right maxillary bone fractures. Layering hemorrhagic products are present in the right ethmoid air cells. Report dictated by Caron Jimenes MD (residential sales executive). IBraden MD have personally reviewed and interpreted this examination/study. > Interpreting Provider: Braden Garza MD on 10/08/2024 7:08 PM Narrative 10/08/2024 7:08 PM PAYMENT SPECIALIST PROCEDURE: CT FACIAL BONES WO CONTRAST, DATE/TIME OF EXAM: 10/08/2024 6:14 PM, LOCATION [facility] INDICATION: Trauma EXAMINATION: 1Computed tomography (CT) of the head without contrast ADDITIONAL CLINICAL INFORMATION: Ordering Provider Reason For Exam: Trauma Technologist Note: None Additional: None. EXAMINATION: Computed tomography (CT) of the maxillofacial bones, orbits, and paranasal sinuses without contrast TECHNIQUE: CT of the maxillofacial bones, orbits, and paranasal sinuses was performed without contrast according to standard protocol. CT dose reduction technique was used, including Automated Exposure Control. COMPARISON: No prior study is available for comparison at the time of this dictation. FINDINGS: Multiple facial fractures including the following: *Mildly displaced fracture of the right nasal bone is mild medial displacement. *There is a mildly displaced fracture of the nasal process of the right maxillary bone. *There is a suspected nondisplaced fracture of the left maxillary bone. *There are suspected fractures of the nasal tip. *There are suspected nondisplaced fractures of the nasal septum. *Acute, medially displaced blowout fracture of the right lamina papyracea. No evidence of entrapment. Layering hemorrhagic products are present within the right ethmoid air cells. Multiple foci of air present in the right medial extraconal space. The bilateral globes, optic nerves, retrobulbar fat and extraocular muscles appear normal. *Nondisplaced fracture of the right zygomatic process of the temporal bone (series 6, image 96; series 3, image 167). Mucosal thickening of the left paranasal sinuses and left frontal sinus. The hard palate, mandible, and temporomandibular joints appear normal. No additional facial bone fractures are identified. The mastoid air cells are clear. Mild soft right periorbital soft tissue swelling along the right lateral preseptal space. Procedure Note Braden Garza MD - 10/08/2024 PROCEDURE: CT FACIAL BONES WO CONTRAST, DATE/TIME OF EXAM: :14 PM, LOCATION [facility] INDICATION: Trauma EXAMINATION: 1Computed tomography (CT) of the head without contrast ADDITIONAL CLINICAL INFORMATION: Ordering Provider Reason For Exam: Trauma Technologist Note: None Additional: None. EXAMINATION: Computed tomography (CT) of the maxillofacial bones,orbits, and paranasal sinuses without contrast TECHNIQUE: CT of the maxillofacial bones, orbits, and paranasal sinuseswas performed without contrast according to standard protocol. CT dose reduction technique was used, including Automated Exposure Control. COMPARISON: No prior study is available for comparison at the time ofthis dictation. FINDINGS: Multiple facial fractures including the following: *Mildly displaced fracture of the right nasal bone is mild medial displacement. *There is a mildly displaced fracture of the nasal process of the right maxillary bone. *There is a suspected nondisplaced fracture of the left maxillary bone. *There are suspected fractures of the nasal tip. *There are suspected nondisplaced fractures of the nasal septum. *Acute, medially displaced blowout fracture of the right laminapapyracea. No evidence of entrapment. Layering hemorrhagic products are presentwithin the right ethmoid air cells. Multiple foci of air present in the right medial extraconal space. The bilateral globes, optic nerves, retrobulbar fat and extraocular muscles appear normal. *Nondisplaced fracture of the right zygomatic process of the temporalbone (series 6, image 96; series 3, image 167). Mucosal thickening of the left paranasal sinuses and left frontal sinus. The hard palate, mandible, and temporomandibular joints appear normal.No additional facial bone fractures are identified. The mastoid air cellsare clear. Mild soft right periorbital soft tissue swelling along the right lateral preseptal space. IMPRESSION: 1.Acute nondisplaced fracture of the right zygomatic arch. 2.Medially displaced blowout fracture of the right lamina papyracea involving the right ethmoidal septa. No evidence of entrapment. Multiple foci of air present in the right medial extraconal space. The bilateral globes are intact. 3.Mildly displaced nasal bone and nasal process of the right maxillarybone fractures. Layering hemorrhagic products are present in the rightethmoid air cells. Report dictated by Caron Jimenes MD (residential sales executive). Braden Levi MD have personally reviewed and interpretedthis examination/study. > Interpreting Provider: Braden Garza MD on 10/08/2024 7:08 PM Moncho Kramer MD CT ORDERABLES * CT HEAD WO CONTRAST - Head Trauma, CSF leak, mental status changes (10/08/2024 6:14 PM PAYMENT SPECIALIST) Anatomical Region Laterality Modality Head Computed Tomogra phy 10/08/2024 5:56 PM PAYMENT SPECIALIST Impressions 10/08/2024 5:59 PM PAYMENT SPECIALIST IMPRESSION: 1.No acute intracranial hemorrhage, midline shift, or significant mass effect. 2.Medially displaced blowout fracture of the right lamina papyracea involving the right ethmoid septa. Mildly displaced fracture of the night nasal bone. Please see concurrently obtained CT facial bones for further evaluation. Report dictated by Caron Jimenes MD (residential sales executive). Callum Levi MD have personally reviewed and interpreted this examination/study. > Interpreting Provider: Callum Birmingham MD on 10/08/2024 5:59 PM Narrative 10/08/2024 5:59 PM PAYMENT SPECIALIST PROCEDURE: CT FACIAL BONES WO CONTRAST, DATE/TIME OF EXAM: 10/08/2024 5:21 PM, LOCATION [facility] INDICATION: Trauma EXAMINATION: 1Computed tomography (CT) of the head without contrast ADDITIONAL CLINICAL INFORMATION: Ordering Provider Reason For Exam: Technologist Note: Additional: TECHNIQUE: CT of the head was performed without contrast according to standard protocol. CT dose reduction technique was used, including Automated Exposure Control. COMPARISON: No prior study is available for comparison at the time of this dictation. FINDINGS: Head: No acute intra- or extra-axial fluid collections are identified. The ventricles are of normal size, shape, and morphology. The basilar cisterns are patent. No mass effect or midline shift is seen. The tompkins-white matter differentiation is normal. No acute calvarial fracture is identified. Multiple facial fractures including the following: Mildly displaced fracture of the right nasal bone. Acute, medially displaced blowout fracture of the right lamina papyracea. No evidence of entrapment. Layering hemorrhagic products are present within the right ethmoid air cells. Multiple foci of air present in the right medial extraconal space. Mucosal thickening of the left paranasal sinuses and left frontal sinus. The hard palate, mandible, and temporomandibular joints appear normal. The mastoid air cells are clear. Mild soft tissue swelling of the right lateral preseptal space. Brain injury guidelines: Skull fracture: No Subdural hematoma: No subdural hematoma. Epidural hematoma: No epidural hematoma. Intraparenchymal hemorrhage: No intraparenchymal hemorrhage. Subarachnoid hemorrhage: No subarachnoid hemorrhage. Intraventricular hemorrhage: No. Midline shift: No. Procedure Note Callum Birmingham MD - 10/08/2024 PROCEDURE: CT FACIAL BONES WO CONTRAST, DATE/TIME OF EXAM: :21 PM, LOCATION [facility] INDICATION: Trauma EXAMINATION: 1Computed tomography (CT) of the head without contrast ADDITIONAL CLINICAL INFORMATION: Ordering Provider Reason For Exam: Technologist Note: Additional: TECHNIQUE: CT of the head was performed without contrast according to standard protocol. CT dose reduction technique was used, including Automated Exposure Control. COMPARISON: No prior study is available for comparison at the time ofthis dictation. FINDINGS: Head: No acute intra- or extra-axial fluid collections are identified. The ventricles are of normal size, shape, and morphology. The basilarcisterns are patent. No mass effect or midline shift is seen. The tompkins-whitematter differentiation is normal. No acute calvarial fracture is identified. Multiple facial fractures including the following: Mildly displaced fracture of the right nasal bone. Acute, medially displaced blowout fracture of the right lamina papyracea. No evidence of entrapment. Layering hemorrhagic products are present within the right ethmoid air cells. Multiple foci of air present in the right medial extraconal space. Mucosal thickening of the left paranasal sinuses and left frontal sinus. The hard palate, mandible, and temporomandibular joints appear normal.The mastoid air cells are clear. Mild soft tissue swelling of the rightlateral preseptal space. Brain injury guidelines: Skull fracture: No Subdural hematoma: No subdural hematoma. Epidural hematoma: No epidural hematoma. Intraparenchymal hemorrhage: No intraparenchymal hemorrhage. Subarachnoid hemorrhage: No subarachnoid hemorrhage. Intraventricular hemorrhage: No. Midline shift: No. IMPRESSION: 1.No acute intracranial hemorrhage, midline shift, or significant mass effect. 2.Medially displaced blowout fracture of the right lamina papyracea involving the right ethmoid septa. Mildly displaced fracture of thenight nasal bone. Please see concurrently obtained CT facial bones for further evaluation. Report dictated by Caron Jimenes MD (residential sales executive). Callum Levi MD have personally reviewed and interpreted this examination/study. > Interpreting Provider: Callum Birmingham MD on 10/08/2024 5:59 PM Moncho Kramer MD CT ORDERABLES * XR PELVIS 1 OR 2VW (10/08/2024 5:29 PM PAYMENT SPECIALIST) Anatomical Region Laterality Modality Pelvis Digital Radiogra phy 10/08/2024 5:28 PM PAYMENT SPECIALIST Impressions 10/09/2024 8:03 AM PAYMENT SPECIALIST IMPRESSION: No acute fracture identified. Report dictated by Caron Jimenes MD (residential sales executive). Maycol Levi MD have personally reviewed and interpreted this examination/study. > Interpreting Provider: Maycol Warren MD on 10/09/2024 8:03 AM Narrative 10/09/2024 8:03 AM PAYMENT SPECIALIST PROCEDURE: XR PELVIS 1 OR 2VW, DATE/TIME OF EXAM: 10/08/2024 5:23 PM, LOCATION [facility] INDICATION: Trauma Fracture suspected ADDITIONAL CLINICAL INFORMATION: Ordering Provider Reason For Exam: Technologist Note: Additional: COMPARISON: None. FINDINGS: Partially visualized lumbar spinal fusion hardware. No acute fracture is identified. The femoral heads appear well-seated within their respective acetabula. The pubic symphysis is intact. Bone density and texture are normal. The sacroiliac joints are normal. Procedure Note Maycol Warren MD - 10/09/2024 PROCEDURE: XR PELVIS 1 OR 2VW, DATE/TIME OF EXAM: 10/08/2024 5:23 PM, LOCATION [facility] INDICATION: Trauma Fracture suspected ADDITIONAL CLINICAL INFORMATION: Ordering Provider Reason For Exam: Technologist Note: Additional: COMPARISON: None. FINDINGS: Partially visualized lumbar spinal fusion hardware. No acute fracture is identified. The femoral heads appear well-seated within their respective acetabula. The pubic symphysis is intact. Bone density and texture are normal. The sacroiliac joints are normal. IMPRESSION: No acute fracture identified. Report dictated by Caron Jimenes MD (residential sales executive). IMaycol MD have personally reviewed and interpreted this examination/study. > Interpreting Provider: Maycol Warren MD on 10/09/2024 8:03 AM Moncho Kramer MD DIAGNOSTIC IMAGING ORDERABLES * (ABNORMAL) TEG 6 GLOBAL HEMOSTASIS W/ LYSIS (10/08/2024 5:27 PM PAYMENT SPECIALIST) Citrated Kaolin R (Reaction Time) 3.8(L) 4.6 - 9.1 min 10/08/2024 6:[address] [facility] Comment:CK R result below no rmal range. Consistent with hypercoagulable clotting factors. Citrated Kaolin LY30 (Lysis) 1.3 0.0 - 2.6 % 10/08/2024 6:[address] [facility] Citrated Functional Fibrinogen MA (Max Amplitude) 19.1 15.0 - 32.0 mm 10/08/2024 6:[address] [facility] Citrated RapidTEG MA (Max Amplitude) 61.5 52.0 - 70.0 mm 10/08/2024 6:[address] [facility] Blood BLOOD SPECIMEN / Unknown Venipuncture / Unknown 10/08/2024 5:27 PM PAYMENT SPECIALIST 10/08/2024 5:40 PM PAYMENT SPECIALIST Moncho Kramer MD LAB - HEMATOLOGY OR DERABLES [facility] [address] [place] [address], [facility] [phone] * (ABNORMAL) TEG 6S PLATELET MAPPING (10/08/2024 5:27 PM PAYMENT SPECIALIST) TEGPLM (Max Amplitude) Koalin 61.6 53.0 - 68.0 mm 10/08/2024 6:[address] [facility] TEGPLM (Max Amplitude) ACTF 6.6 2.0 - 19.0 mm 10/08/2024 6:[address] [facility] TEGPLM (Max Amplitude) ADP 20.0(L) 45.0 - 69.0 mm 10/08/2024 6:[address] [facility] Comment:ADP MA below normal range. Inhibition present. TEGPLM (Max Amplitude) AA 60.1 51.0 - 71.0 mm 10/08/2024 6:[address] [facility] TEGPLM %Inhibition ADP 75.6(H) 0.0 - 17.0 % 10/08/2024 6:[address] [facility] TEGPLM %Inhibition AA 2.7 0.0 - 11.0 % 10/08/2024 6:[address] [facility] TEGPLM %Aggregation ADP 24.4(L) 83.0 - 100.0 % 10/08/2024 6:[address] [facility] TEGPLM % Aggregation AA 97.3 89.0 - 100.0 % 10/08/2024 6:[address] [facility] Blood BLOOD SPECIMEN / Unknown Venipuncture / Unknown 10/08/2024 5:27 PM PAYMENT SPECIALIST 10/08/2024 5:40 PM PAYMENT SPECIALIST Moncho Kramer MD LAB - HEMATOLOGY OR DERABLES [facility] [address] [place] [address], [facility] [phone] * (ABNORMAL) PTT [facility] (10/08/2024 5:27 PM PAYMENT SPECIALIST) Pathologist [facility] APTT 21.8(L) 23.0 - 38.4 Seconds 10/08/2024 6:[address] [facility] Comment:Suggested therapeuti c range for full dose I.V. unfractionated heparin therapy for venous thromboembolism is 71 to 109 seconds. Blood BLOOD SPECIMEN / Unknown Venipuncture / Unknown 10/08/2024 5:27 PM PAYMENT SPECIALIST 10/08/2024 5:36 PM PAYMENT SPECIALIST Moncho Kramer MD LAB - COAGULATION O MINE [address] [address], [facility] [phone] * PT-INR [facility] (10/08/2024 5:27 PM PAYMENT SPECIALIST) [facility] PT 12.6 12.1 - 14.8 Seconds 10/08/2024 6:[address] [facility] INR 1.0 See Comment 10/08/2024 6:[address] [facility] Comment:The suggested therap eutic range for standard coumadin (warfarin) therapy is an INR of 2.0-3.0. For high-risk patients (Mechanical Mitral Valve Prosthesis, etc.), the suggested prophylactic therapeutic range is an INR of 2.5-3.5. Blood BLOOD SPECIMEN / Unknown Venipuncture / Unknown 10/08/2024 5:27 PM PAYMENT SPECIALIST 10/08/2024 5:36 PM PAYMENT SPECIALIST Moncho Kramer MD LAB - COAGULATION O MINE [address] [address], [facility] [phone] * TYPE + SCREEN PANEL (10/08/2024 5:27 PM PAYMENT SPECIALIST) Pathologist [facility] Antibody Screen NEG 6:15 PM [facility] BLOOD BANK LAB ABO Rh A POS 10/08/2024 6:15 PM PAYMENT SPECIALIST [facility] BLOOD BANK LAB Blood Bank BLOOD SPECIMEN / Unknown Venipuncture / Unknown 10/08/2024 5:27 PM PAYMENT SPECIALIST 10/08/2024 5:37 PM PAYMENT SPECIALIST Moncho Kramer MD LAB - BLOOD BANK OR DERABLES [facility] BLOOD BANK LAB [address] [place] [address], [facility] [phone] * (ABNORMAL) CBC W AUTO DIFFERENTIAL (10/08/2024 5:27 PM PAYMENT SPECIALIST) WBC 15.8(H) 4.0 - 10.7 x10E9/L 10/08/2024 5:[address] [facility] RBC Count 4.12(L) 4.30 - 5.80 x10E12/L 10/08/2024 5:[address] [facility] Hemoglobin 12.8(L) 13.3 - 17.5 g/dL 10/08/2024 5:[address] [facility] Hematocrit 37.6(L) 38.7 - 51.1 % 10/08/2024 5:[address] [facility] MCV 91.3 80.0 - 98.0 fL 10/08/2024 5:[address] [facility] MCH 31.1 26.7 - 33.6 pg 10/08/2024 5:[address] [facility] MCHC 34.0 31.7 - 36.3 g/dL 10/08/2024 5:[address] [facility] RDW-CV 13.6 11.3 - 14.8 % 10/08/2024 5:[address] [facility] Platelet Count 278 150 - 420 x10E9/L 10/08/2024 5:[address] [facility] MPV 10.4 7.8 - 11.4 fL 10/08/2024 5:[address] [facility] Neutrophil % 72.3 41.0 - 74.0 % 10/08/2024 5:[address] [facility] Lymphocyte % 16.4(L) 17.0 - 47.0 % 10/08/2024 5:[address] [facility] Monocyte % 8.4 3.0 - 11.0 % 10/08/2024 5:[address] [facility] Eosinophil % 2.0 0.0 - 7.0 % 10/08/2024 5:[address] [facility] Basophil % 0.5 0.0 - 1.6 % 10/08/2024 5:[address] [facility] Immature Granulocytes % 0.4 0.0 - 1.0 % 10/08/2024 5:[address] [facility] Neutrophil Absolute 11.40(H) 1.60 - 7.50 x10E9/L 10/08/2024 5:[address] [facility] Lymphocyte Absolute 2.59 1.00 - 4.40 x10E9/L 10/08/2024 5:[address] [facility] Monocyte Absolute 1.32(H) 0.15 - 1.00 x10E9/L 10/08/2024 5:[address] [facility] Eosinophil Absolute 0.32 0.00 - 0.60 x10E9/L 10/08/2024 5:[address] [facility] Basophil Absolute 0.08 0.00 - 0.13 x10E9/L 10/08/2024 5:[address] [facility] Blood BLOOD SPECIMEN / Unknown Venipuncture / Unknown 10/08/2024 5:27 PM PAYMENT SPECIALIST 10/08/2024 5:39 PM [facility] Moncho Kramer MD LAB - HEMATOLOGY OR DERABLES Performing Organization Address [facility] Co de Phone Number [address] [address], [facility] [phone] * (ABNORMAL) BASIC METABOLIC PANEL (CALCIUM TOTAL) (10/08/2024 5:27 PM PAYMENT SPECIALIST) BUN 16 7 - 26 mg/dL 10/08/2024 6:[address] [facility] Creatinine 1.14 0.71 - 1.16 mg/dL 10/08/2024 6:[address] [facility] Sodium 138 136 - 145 mmol/L 10/08/2024 6:[address] [facility] Potassium 3.9 3.5 - 4.5 mmol/L 10/08/2024 6:[address] [facility] Chloride 104 98 - 107 mmol/L 10/08/2024 6:[address] [facility] CO2 24 22 - 29 mmol/L 10/08/2024 6:[address] [facility] Glucose 104(H) 70 - 99 mg/dL 10/08/2024 6:[address] [facility] Calcium 8.9 8.4 - 10.2 mg/dL 10/08/2024 6:[address] [facility] Anion Gap 10 6 - 16 10/08/2024 6:[address] [facility] BUN/Creatinine Ratio 14 7 - 23 10/08/2024 6:[address] [facility] Osmolality Calculated 287 275 - 295 mOsm/kg 10/08/2024 6:[address] [facility] eGFR by CKD-EPI 80(L) >=90 mL/min/1.7 3 m2 10/08/2024 6:[address] [facility] Blood BLOOD SPECIMEN / Unknown Venipuncture / Unknown 10/08/2024 5:27 PM PAYMENT SPECIALIST 10/08/2024 5:39 PM [facility] Moncho Kramer MD LAB - CHEMISTRY ORD ERABLES [facility] [address] [place] [address], [facility] [phone] * ALCOHOL ETHYL BLOOD (10/08/2024 5:27 PM [facility]) Ethanol (mg/dL) <10 <10 mg/dL 6:[address] [facility] Ethanol Calculated (g/dL) <0.010 <=0.010 g/dL 10/08/2024 6:[address] [facility] Blood BLOOD SPECIMEN / Unknown Venipuncture / Unknown 10/08/2024 5:27 PM PAYMENT SPECIALIST 10/08/2024 5:39 PM [facility] Narrative [facility] - 10/08/2024 6:08 PM PAYMENT SPECIALIST Ethanol Interp <10: None Detected. Depression of SUPERVISOR UNLOADING: >100 mg/dl Potentially Critical: >250 mg/dl Potentially Fatal >400 mg/dl Ethanol in the patient's blood will contribute to the osmolar gap. Ethanol's contribution to the osmolar gap can be estimated by dividing the concentration of ethanol in mg/dL by 4.6. This test is for clinical use only and does not equal a RJ for legal purposes. Moncho Kramer MD LAB - CHEMISTRY ORD ERABLES [address] [address], [facility] [phone] * XR CHEST 1VW PORTABLE (10/08/2024 5:15 PM PAYMENT SPECIALIST) Anatomical Region Laterality Modality Chest Digital Radiogra phy 10/08/2024 5:26 PM PAYMENT SPECIALIST Narrative 10/09/2024 8:02 AM PAYMENT SPECIALIST PROCEDURE: XR CHEST 1VW PORTABLE, DATE/TIME OF EXAM: 10/08/2024 5:23 PM, LOCATION [facility] INDICATION: Trauma ADDITIONAL CLINICAL INFORMATION: Ordering Provider Reason For Exam: Technologist Note: Additional: COMPARISON: None. FINDINGS/IMPRESSION: No focal consolidation, pleural effusion, or pneumothorax. The cardiomediastinal silhouette is normal. No acute osseous abnormality. Degenerative changes of the thoracic spine. > Dictated by Caron Jimenes MD (residential sales executive) Maycol Levi MD have personally reviewed and interpreted this examination/study. > Interpreting Provider: Maycol Warren MD on 10/09/2024 8:02 AM Procedure Note Maycol Warren MD - 10/09/2024 PROCEDURE: XR CHEST 1VW PORTABLE, DATE/TIME OF EXAM: 10/08/2024 5:23PM, LOCATION [facility] INDICATION: Trauma ADDITIONAL CLINICAL INFORMATION: Ordering Provider Reason For Exam: Technologist Note: Additional: COMPARISON: None. FINDINGS/IMPRESSION: No focal consolidation, pleural effusion, or pneumothorax. The cardiomediastinal silhouette is normal. No acute osseousabnormality. Degenerative changes of the thoracic spine. > Dictated by Caron Jimenes MD (residential sales executive) Maycol Levi MD have personally reviewed and interpreted this examination/study. > Interpreting Provider: Maycol Warren MD on 10/09/2024 8:02 AM Moncho Kramer MD DIAGNOSTIC IMAGING ORDERABLES from Last 3 Months Care Teams [employer] Relationship Specialty Start Date End Date Brianda Maciel PA-C [address] [place] [phone] PCP - General Physician Crew Caller 10/08/24
--- OUTSIDE RECORDS SUMMARY | 2024-10-20 17:12 | XMS_ITS | Patient Health Summary ---
Author Organization [facility] [employer] Address [address] [place] [address] Care Team Providers Care Asset Coordinator Name Role Phone Brianda Maciel PA-C Primary Care Provider Note from [facility],non-owned Affiliates and Associated Physician Practices is amultiple site organization consisting of ambulatory clinics and hospital sitesin [place], [place], [place] and [place]. This disclosure is being madepursuant to the Care Everywhere program and may not contain all information available regarding this patient. Last updated 18.[facility] Allergies No known active allergies Medications * Be aware that medications may not be up to date on this document. Alwaysverify current medications with the patient. * albuterol HFA (ProAir HFA) 108 (90 Base) MCG/ACT inhaler ProAir HFA 90 mcg/actuation aerosol inhaler * lisinopril-hydroCHLOROthiazide (Prinzide; Zestoretic) 10-12.5 MG tablet lisinopril 10 mg-hydrochlorothiazide 12.5 mg tablet Take 1 tablet by mouth once daily * Budesonide-Formoterol Fumarate (SYMBICORT IN) Symbicort 160 mcg-4.5 mcg/actuation HFA aerosol inhaler Inhale 2 puffs by mouth twice daily * cyclobenzaprine (Flexeril) 5 MG tablet(Started 10/08/2024) Take 1 (one) tablet by mouth 3 times daily as needed (Muscle spasms) * ibuprofen (Motrin) 600 MG tablet(Started 10/08/2024) Take 1 (one) tablet by mouth every 6 hours as needed for Pain * acetaminophen (Tylenol) 500 MG tablet(Started 10/08/2024) Take 1 (one) tablet by mouth every 6 hours as needed for Fever or Pain Maximum allowable Acetaminophen amount = 4 Grams (4000 mg) / 24 hours. * oxyCODONE, immediate release, (Roxicodone) 5 MG tablet(Started 10/08/2024) Take 1 (one) tablet by mouth every 6 hours as needed for Pain Ended Medications* amoxicillin-clavulanate (Augmentin) 875-125 MG tablet(Started 10/08/2024)() Take 1 (one) tablet by mouth 2 times daily for 7 days Active Problems Problem Noted Date Diagnosed Date Fracture of right zygomatic arch 10/08/2024 Trauma 10/08/2024 Closed displaced fracture of nasal bone 10/08/19 25 Lacerations of multiple sites of leg 10/08/2024 Abrasion of left conjunctiva 05/09/2022 Insomnia 02/07/2022 Smoker 02/07/2022 Alcohol dependence 02/07/2022 Chronic back pain 09/06/2020 Essential hypertension 04/10/2017 Mild persistent asthma 04/10/2017 Social History Tobacco Use Types Packs/Day Years [...] Comments Blood Pressure 132/90 10/08/2024 11:00 PM [employer] Pulse 88 10/08/2024 11:00 PM [employer] Temperature 36.8 C (98.3 F) 10/08/2024 5:13 PM [employer] Respiratory Rate 24 10/08/2024 11:00 PM [employer] Oxygen Saturation 94% 10/08/2024 11:00 PM [employer] Inhaled Oxygen Concentration - - Weight - - Height - - Body Mass Index - - Procedures * XR WRIST LEFT 3VW OR MORE(Performed 10/08/2024) Performed for Trauma * XR TIBIA FIBULA RIGHT 2VW(Performed 10/08/2024) Performed for Trauma * XR ANKLE LEFT 3VW OR MORE(Performed 10/08/2024) Performed for Trauma * XR TIBIA FIBULA LEFT 2VW(Performed 10/08/2024) Performed for Trauma * XR KNEE LEFT 2VW OR LESS(Performed 10/08/2024) Performed for Trauma * XR FEMUR LEFT 2VW(Performed 10/08/2024) Performed for Trauma * CT LUMBAR SPINE WO CONTRAST(Performed 10/08/2024) Performed for Trauma * CT THORACIC SPINE WO CONTRAST(Performed 10/08/2024) Performed for Trauma * CT CHEST ABDOMEN PELVIS W CONT(Performed 10/08/2024) Performed for Trauma * CT CERVICAL SPINE WO CONTRAST(Performed 10/08/2024) Performed for Trauma * CT FACIAL BONES WO CONTRAST(Performed 10/08/2024) Performed for Trauma * CT HEAD WO CONTRAST(Performed 10/08/2024) Performed for Trauma * XR PELVIS 1 OR 2VW(Performed 10/08/2024) Performed for Trauma * TYPE + SCREEN PANEL(Performed 10/08/2024) * TEG 6S PLATELET MAPPING(Performed 10/08/2024) * TEG 6 GLOBAL HEMOSTASIS W/ LYSIS(Performed 10/08/2024) * PTT [facility](Performed 10/08/2024) * PT-INR [facility](Performed 10/08/2024) * CBC W AUTO DIFFERENTIAL(Performed 10/08/2024) * BASIC METABOLIC PANEL (CALCIUM TOTAL)(Performed 10/08/2024) * ALCOHOL ETHYL BLOOD(Performed 10/08/2024) * XR CHEST 1VW PORTABLE(Performed 10/08/2024) Performed for Trauma Results * XR Wrist Left 3Vw or More (10/08/2024 6:41 PM [employer]) Anatomical Region Laterality Modality Wrist / Hand Digital Radiogra phy 10/08/2024 7:13 PM [employer] Impressions 10/09/2024 7:53 AM [employer] IMPRESSION: No acute fracture or dislocation identified. Report dictated by Caron Jimenes MD (founder president and ceo). I, Issa Sheehan MD have personally reviewed and interpreted this examination/study. > Interpreting Provider: Issa Sheehan MD on 10/09/2024 7:53 AM Narrative 10/09/2024 7:53 AM [employer] PROCEDURE: XR WRIST LEFT 3VW OR MORE, DATE/TIME OF EXAM: 10/08/2024 6:41 PM, LOCATION [facility] INDICATION: T14.90XA: Trauma ADDITIONAL CLINICAL INFORMATION: Ordering [...] MORE, DATE/TIME OF EXAM: 56:41 PM, LOCATION [facility] INDICATION: T14.90XA: Trauma ADDITIONAL CLINICAL INFORMATION: Ordering Provider Reason For Exam: Technologist Note: Additional: COMPARISON: None. FINDINGS: The osseous structures are intact and well aligned without acutefracture or dislocation. The joint spaces are preserved. Bone density and texture are normal. Mild soft tissue swelling is present. IMPRESSION: No acute fracture or dislocation identified. Report dictated by Caron Jimenes MD (founder president and ceo). Issa Levi MD have personally reviewed and interpreted this examination/study. > Interpreting Provider: Issa Sheehan MD on 10/09/2024 7:53 AM Moncho Kramer MD DIAGNOSTIC IMAGING ORDERABLES * XR Tibia Fibula Right 2Vw (10/08/2024 6:37 PM [employer]) Anatomical Region Laterality Modality Lower Extremity Digital Radiogra phy 10/08/2024 7:12 PM [employer] Impressions 10/09/2024 7:55 AM [employer] IMPRESSION: No acute tibial or fibular fracture identified. Report dictated by Caron Jimenes MD (founder president and ceo). Issa Levi MD have personally reviewed and interpreted this examination/study. > Interpreting Provider: Issa Sheehan MD on 10/09/2024 7:55 AM Narrative 10/09/2024 7:55 AM [employer] PROCEDURE: XR TIBIA FIBULA RIGHT 2VW, DATE/TIME OF EXAM: 10/08/2024 6:41 PM, LOCATION [facility] INDICATION: T14.90XA: Trauma ADDITIONAL CLINICAL INFORMATION: Ordering [...] 2VW, DATE/TIME OF EXAM: 56:41 PM, LOCATION [facility] INDICATION: T14.90XA: Trauma ADDITIONAL CLINICAL INFORMATION: Ordering [...] identified. Report dictated by Caron Jimenes MD (founder president and ceo). Issa Levi MD have personally reviewed and interpreted this examination/study. > Interpreting Provider: Issa Sheehan MD on 10/09/2024 7:55 AM Moncho Kramer MD DIAGNOSTIC IMAGING ORDERABLES * XR Ankle Left 3Vw or More (10/08/2024 6:34 PM [employer]) Anatomical Region Laterality Modality Lower Extremity Digital Radiogra phy 10/08/2024 7:13 PM [employer] Impressions 10/09/2024 7:54 AM [employer] IMPRESSION: No acute fracture or dislocation identified. Report dictated by Caron Jimenes MD (founder president and ceo). Issa Levi MD have personally reviewed and interpreted this examination/study. > Interpreting Provider: Issa Sheehan MD on 10/09/2024 7:54 AM Narrative 10/09/2024 7:54 AM [employer] PROCEDURE: XR ANKLE LEFT 3VW OR MORE, DATE/TIME OF EXAM: 10/08/2024 6:40 PM, LOCATION [facility] INDICATION: T14.90XA: Trauma ADDITIONAL CLINICAL INFORMATION: Ordering [...] MORE, DATE/TIME OF EXAM: 56:40 PM, LOCATION [facility] INDICATION: T14.90XA: Trauma ADDITIONAL CLINICAL INFORMATION: Ordering [...] identified. Report dictated by Caron Jimenes MD (founder president and ceo). Issa Levi MD have personally reviewed and interpreted this examination/study. > Interpreting Provider: Issa Sheehan MD on 10/09/2024 7:54 AM Moncho Kramer MD DIAGNOSTIC IMAGING ORDERABLES * XR Tibia Fibula Left 2Vw (10/08/2024 6:30 PM [employer]) Anatomical Region Laterality Modality Lower Extremity Digital Radiogra phy 10/08/2024 7:11 PM [employer] Impressions 10/09/2024 7:54 AM [employer] IMPRESSION: No acute tibial or fibular fracture identified. Report dictated by Caron Jimenes MD (founder president and ceo). Issa Levi MD have personally reviewed and interpreted this examination/study. > Interpreting Provider: Issa Sheehan MD on 10/09/2024 7:54 AM Narrative 10/09/2024 7:54 AM [employer] PROCEDURE: XR TIBIA FIBULA LEFT 2VW, DATE/TIME OF EXAM: 10/08/2024 6:40 PM, LOCATION [facility] INDICATION: T14.90XA: Trauma ADDITIONAL CLINICAL INFORMATION: Ordering Provider Reason For Exam: Technologist Note: Additional: COMPARISON: None FINDINGS: The tibia and fibula are intact without evidence of acute fracture. Bone density and texture are normal. No soft tissue swelling is present. Procedure Note Issa Sheehan MD - 10/09/2024 PROCEDURE: XR TIBIA FIBULA LEFT 2VW, DATE/TIME OF EXAM: 10/08/2024 6:40 PM, LOCATION [facility] INDICATION: T14.90XA: Trauma ADDITIONAL CLINICAL INFORMATION: Ordering Provider Reason For Exam: Technologist Note: Additional: COMPARISON: None FINDINGS: The tibia and fibula are intact without evidence of acute fracture. Bone density and texture are normal. No soft tissue swelling is present. IMPRESSION: No acute tibial or fibular fracture identified. Report dictated by Caron Jimenes MD (founder president and ceo). Issa Levi MD have personally reviewed and interpreted this examination/study. > Interpreting Provider: Issa Sheehan MD on 10/09/2024 7:54 AM Moncho Kramer MD DIAGNOSTIC IMAGING ORDERABLES * XR Knee Left 2Vw or Less (10/08/2024 6:26 PM [employer]) Anatomical Region Laterality Modality Lower Extremity Digital Radiogra phy 10/08/2024 7:14 PM [employer] Impressions 10/09/2024 7:54 AM [employer] IMPRESSION: No acute fracture or dislocation identified. Report dictated by Caron Jimenes MD (founder president and ceo). Issa Levi MD have personally reviewed and interpreted this examination/study. > Interpreting Provider: Issa Sheehan MD on 10/09/2024 7:54 AM Narrative 10/09/2024 7:54 AM [employer] PROCEDURE: XR KNEE LEFT 2VW OR LESS [...] identified. Report dictated by Caron Jimenes MD (founder president and ceo). Issa Levi MD have personally reviewed and interpreted this examination/study. > Interpreting Provider: Issa Sheehan MD on 10/09/2024 7:54 AM Martin Bermeo MD DIAGNOSTIC IMAGING O RDERABLES * XR Femur Left 2Vw (10/08/2024 6:23 PM [employer]) Anatomical Region Laterality Modality Lower Extremity Digital Radiogra phy 10/08/2024 7:07 PM [employer] Impressions 10/09/2024 7:53 AM [employer] IMPRESSION: No acute femoral fracture identified. Report dictated by Caron Jimenes MD (founder president and ceo). Issa Levi MD have personally reviewed and interpreted this examination/study. > Interpreting Provider: Issa Sheehan MD on 10/09/2024 7:53 AM Narrative 10/09/2024 7:53 AM [employer] PROCEDURE: XR FEMUR LEFT 2VW, DATE/TIME OF EXAM: 10/08/2024 6:38 PM, LOCATION [facility] INDICATION: T14.90XA: Trauma COMPARISON: None. FINDINGS: The femur is intact without acute fracture. The joint spaces are preserved. Bone density and texture are normal. Procedure Note Issa Sheehan MD - 10/09/2024 PROCEDURE: XR FEMUR LEFT 2VW, DATE/TIME OF EXAM: 10/08/2024 6:38 PM, LOCATION [facility] INDICATION: T14.90XA: Trauma COMPARISON: None. FINDINGS: The femur is intact without acute fracture. The joint spaces arepreserved. Bone density and texture are normal. IMPRESSION: No acute femoral fracture identified. Report dictated by Caron Jimenes MD (founder president and ceo). Issa Levi MD have personally reviewed and interpreted this examination/study. > Interpreting Provider: Issa Sheehan MD on 10/09/2024 7:53 AM Moncho Kramer MD DIAGNOSTIC IMAGING ORDERABLES * CT CHEST ABDOMEN PELVIS W CONT - Abdomen-pelvis trauma, blunt or penetrating (10/08/2024 6:14 PM [employer]) Anatomical Region Laterality Modality Chest, Abdomen, Pelvis Computed Tomography 10/08/2024 6:01 PM [employer] Impressions 10/08/2024 11:40 PM [employer] Impression: 1.Left upper anterior medial thigh hematoma. [...] 10/08/2024 11:40 PM Narrative 10/08/2024 11:40 PM [employer] Procedure Information DATE: 10/08/2024 5:21 PM EXAMINATION: [...] T/L-spine trauma, Spine fracture (10/08/2024 6:14 PM [employer]) Anatomical Region Laterality Modality Spine Computed Tomogra phy 10/08/2024 6:23 PM [employer] Impressions 10/08/2024 7:23 PM [employer] IMPRESSION: 1.No evidence of acute fracture in the cervical, thoracic, or lumbar spine. 2.Please refer to the concurrent, dedicated body report for findings in the chest, abdomen, and pelvis. The report is dictated by Caron Jimenes MD (founder president and ceo) Braden Levi MD have personally reviewed and interpreted this examination/study. > Interpreting Provider: Braden Garza MD on 10/08/2024 7:23 PM Narrative 10/08/2024 7:23 PM [employer] PROCEDURE: CT CERVICAL SPINE WO CONTRAST, CT THORACIC SPINE WO CONTRAST, CT LUMBAR SPINE WO CONTRAST, DATE/TIME OF EXAM: 10/08/2024 6:14 PM, LOCATION [facility] INDICATION: Trauma ADDITIONAL CLINICAL INFORMATION: Ordering Provider [...] DATE/TIME OF EXAM: 10/08/2024 6:14 PM, LOCATION [facility] INDICATION: Trauma ADDITIONAL CLINICAL INFORMATION: Ordering Provider [...] report is dictated by Caron Jimenes MD (founder president and ceo) Braden Levi MD have personally reviewed and interpretedthis examination/study. > Interpreting Provider: Braden Garza MD on 10/08/2024 7:23 PM Moncho Kramer MD CT ORDERABLES * CT THORACIC SPINE WO CONTRAST - T/L-spine trauma, spine fracture (10/08/2024 6:14 PM [employer]) Anatomical Region Laterality Modality Spine Computed Tomogra phy 10/08/2024 6:23 PM [employer] Impressions 10/08/2024 7:23 PM [employer] IMPRESSION: 1.No evidence of acute fracture in the cervical, thoracic, or lumbar spine. 2.Please refer to the concurrent, dedicated body report for findings in the chest, abdomen, and pelvis. The report is dictated by Caron Jimenes MD (founder president and ceo) Braden Levi MD have personally reviewed and interpreted this examination/study. > Interpreting Provider: Braden Garza MD on 10/08/2024 7:23 PM Narrative 10/08/2024 7:23 PM [employer] PROCEDURE: CT CERVICAL SPINE WO CONTRAST, CT THORACIC SPINE WO CONTRAST, CT LUMBAR SPINE WO CONTRAST, DATE/TIME OF EXAM: 10/08/2024 6:14 PM, LOCATION [facility] INDICATION: Trauma ADDITIONAL CLINICAL INFORMATION: Ordering Provider [...] DATE/TIME OF EXAM: 10/08/2024 6:14 PM, LOCATION [facility] INDICATION: Trauma ADDITIONAL CLINICAL INFORMATION: Ordering Provider [...] report is dictated by Caron Jimenes MD (founder president and ceo) Braden Levi MD have personally reviewed and interpretedthis examination/study. > Interpreting Provider: Braden Garza MD on 10/08/2024 7:23 PM Moncho Kramer MD CT ORDERABLES * CT CERVICAL SPINE WO CONTRAST - C-Spine Trauma, Spine fracture (10/08/2024 6:14 PM [employer]) Anatomical Region Laterality Modality Spine Computed Tomogra phy 10/08/2024 6:23 PM [employer] Impressions 10/08/2024 7:23 PM [employer] IMPRESSION: 1.No evidence of acute fracture in the cervical, thoracic, or lumbar spine. 2.Please refer to the concurrent, dedicated body report for findings in the chest, abdomen, and pelvis. The report is dictated by Caron Jimenes MD (founder president and ceo) Braden Levi MD have personally reviewed and interpreted this examination/study. > Interpreting Provider: Braden Garza MD on 10/08/2024 7:23 PM Narrative 10/08/2024 7:23 PM [employer] PROCEDURE: CT CERVICAL SPINE WO CONTRAST, CT THORACIC SPINE WO CONTRAST, CT LUMBAR SPINE WO CONTRAST, DATE/TIME OF EXAM: 10/08/2024 6:14 PM, LOCATION [facility] INDICATION: Trauma ADDITIONAL CLINICAL INFORMATION: Ordering Provider [...] DATE/TIME OF EXAM: 10/08/2024 6:14 PM, LOCATION [facility] INDICATION: Trauma ADDITIONAL CLINICAL INFORMATION: Ordering Provider [...] report is dictated by Caron Jimenes MD (founder president and ceo) I, Braden Garza MD have personally reviewed and interpretedthis examination/study. > Interpreting Provider: Braden Garza MD on 10/08/2024 7:23 PM [address] K[address] MD CT ORDERABLES * CT FACIAL BONES WO CONTRAST - Facial trauma, fx suspected, blunt (10/08/2024 6:14 PM [employer]) Anatomical Region Laterality Modality Head Computed Tomogra phy 10/08/2024 5:38 PM [employer] Impressions 10/08/2024 7:08 PM [employer] IMPRESSION: 1.Acute nondisplaced fracture of the right [...] cells. Report dictated by Caron Jimenes MD (founder president and ceo). Braden Levi MD have personally reviewed and interpreted this examination/study. > Interpreting Provider: Braden Garza MD on 10/08/2024 7:08 PM Narrative 10/08/2024 7:08 PM [employer] PROCEDURE: CT FACIAL BONES WO CONTRAST, DATE/TIME OF EXAM: 10/08/2024 6:14 PM, LOCATION [facility] INDICATION: Trauma EXAMINATION: 1Computed tomography (CT) of [...] CONTRAST, DATE/TIME OF EXAM: :14 PM, LOCATION [facility] INDICATION: Trauma EXAMINATION: 1Computed tomography (CT) of [...] cells. Report dictated by Caron Jimenes MD (founder president and ceo). Braden Levi MD have personally reviewed and interpretedthis examination/study. > Interpreting Provider: Braden Garza MD on 10/08/2024 7:08 PM Moncho Kramer MD CT ORDERABLES * CT HEAD WO CONTRAST - Head Trauma, CSF leak, mental status changes (10/08/2024 6:14 PM [employer]) Anatomical Region Laterality Modality Head Computed Tomogra phy 10/08/2024 5:56 PM [employer] Impressions 10/08/2024 5:59 PM [employer] IMPRESSION: 1.No acute intracranial hemorrhage, midline shift, or significant mass effect. 2.Medially displaced blowout fracture of the right lamina papyracea involving the right ethmoid septa. Mildly displaced fracture of the night nasal bone. Please see concurrently obtained CT facial bones for further evaluation. Report dictated by Caron Jimenes MD (founder president and ceo). Callum Levi MD have personally reviewed and interpreted this examination/study. > Interpreting Provider: Callum Birmingham MD on 10/08/2024 5:59 PM Narrative 10/08/2024 5:59 PM [employer] PROCEDURE: CT FACIAL BONES WO CONTRAST, DATE/TIME OF EXAM: 10/08/2024 5:21 PM, LOCATION [facility] INDICATION: Trauma EXAMINATION: 1Computed tomography (CT) of [...] CONTRAST, DATE/TIME OF EXAM: :21 PM, LOCATION [facility] INDICATION: Trauma EXAMINATION: 1Computed tomography (CT) of [...] evaluation. Report dictated by Caron Jimenes MD (founder president and ceo). Callum Levi MD have personally reviewed and interpreted this examination/study. > Interpreting Provider: Callum Birmingham MD on 10/08/2024 5:59 PM [address] Kramer MD CT ORDERABLES * XR PELVIS 1 OR 2VW (10/08/2024 5:29 PM [employer]) Anatomical Region Laterality Modality Pelvis Digital Radiogra phy 10/08/2024 5:28 PM [employer] Impressions 10/09/2024 8:03 AM [employer] IMPRESSION: No acute fracture identified. Report dictated by Caron Jimenes MD (founder president and ceo). Maycol Levi MD have personally reviewed and interpreted this examination/study. > Interpreting Provider: Maycol Warren MD on 10/09/2024 8:03 AM Narrative 10/09/2024 8:03 AM [employer] PROCEDURE: XR PELVIS 1 OR 2VW, DATE/TIME OF EXAM: 10/08/2024 5:23 PM, LOCATION [facility] INDICATION: Trauma Fracture suspected ADDITIONAL CLINICAL INFORMATION: [...] DATE/TIME OF EXAM: 10/08/2024 5:23 PM, LOCATION [facility] INDICATION: Trauma Fracture suspected ADDITIONAL CLINICAL INFORMATION: [...] identified. Report dictated by Caron Jimenes MD (founder president and ceo). I, Maycol Warren MD have personally reviewed and interpreted this examination/study. > Interpreting Provider: Maycol Warren MD on 10/09/2024 8:03 AM Moncho Kramer MD DIAGNOSTIC IMAGING ORDERABLES * (ABNORMAL) TEG 6 GLOBAL HEMOSTASIS W/ LYSIS (10/08/2024 5:27 PM [employer]) Citrated Kaolin R (Reaction Time) 3.8(L) 4.6 - 9.1 min 10/08/2024 6:36 PM [employer] [facility] Comment:CK R result below no rmal range. Consistent with hypercoagulable clotting factors. Citrated Kaolin LY30 (Lysis) 1.3 0.0 - 2.6 % 10/08/2024 6:36 PM [employer] [facility] Citrated Functional Fibrinogen MA (Max Amplitude) 19.1 15.0 - 32.0 mm 10/08/2024 6:36 PM [facility] Citrated RapidTEG MA (Max Amplitude) 61.5 52.0 - 70.0 mm 10/08/2024 6:36 PM [employer] [facility] Blood BLOOD SPECIMEN / Unknown Venipuncture / Unknown 10/08/2024 5:27 PM [employer] 10/08/2024 5:40 PM [employer] Moncho Kramer MD LAB - HEMATOLOGY OR DERABLES [address] [address], [facility] [phone] * (ABNORMAL) TEG 6S PLATELET MAPPING (10/08/2024 5:27 PM [employer]) TEGPLM (Max Amplitude) Koalin 61.6 53.0 - 68.0 mm 10/08/2024 6:08 PM [facility] TEGPLM (Max Amplitude) ACTF 6.6 2.0 - 19.0 mm 10/08/2024 6:08 PM [facility] TEGPLM (Max Amplitude) ADP 20.0(L) 45.0 - 69.0 mm 10/08/2024 6:08 PM [facility] Comment:ADP MA below normal range. Inhibition present. TEGPLM (Max Amplitude) AA 60.1 51.0 - 71.0 mm 10/08/2024 6:08 PM [facility] TEGPLM %Inhibition ADP 75.6(H) 0.0 - 17.0 % 10/08/2024 6:08 PM [facility] TEGPLM %Inhibition AA 2.7 0.0 - 11.0 % 10/08/2024 6:08 PM [facility] TEGPLM %Aggregation ADP 24.4(L) 83.0 - 100.0 % 10/08/2024 6:08 PM [facility] TEGPLM % Aggregation AA 97.3 89.0 - 100.0 % 10/08/2024 6:08 PM [facility] Blood BLOOD SPECIMEN / Unknown Venipuncture / Unknown 10/08/2024 5:27 PM [employer] 10/08/2024 5:40 PM [employer] Moncho Kramer MD LAB - HEMATOLOGY OR DERABLES Performing Organization Address [facility]/State/ZIP Co de Phone Number [facility] [address] [place] [address], [facility] [phone] * (ABNORMAL) PTT [facility] (10/08/2024 5:27 PM [employer]) APTT 21.8(L) 23.0 - 38.4 Seconds 10/08/2024 6:04 PM [facility] Comment:Suggested therapeuti c range for full dose I.V. unfractionated heparin therapy for venous thromboembolism is 71 to 109 seconds. Blood BLOOD SPECIMEN / Unknown Venipuncture / Unknown 10/08/2024 5:27 PM [employer] 10/08/2024 5:36 PM [employer] Moncho Kramer MD LAB - COAGULATION O RDERABLES Performing Organization Address City/[facility]/ZIP Co de Phone Number [facility] [address] [place] [address], [facility] [phone] * PT-INR [facility] (10/08/2024 5:27 PM [employer]) [facility] [address] PT 12.6 12.1 - 14.8 Seconds 10/08/2024 6:04 PM [facility] INR 1.0 See Comment 10/08/2024 6:04 PM [facility] Comment:The suggested therap eutic range for standard coumadin (warfarin) therapy is an INR of 2.0-3.0. For high-risk patients (Mechanical Mitral Valve Prosthesis, etc.), the suggested prophylactic therapeutic range is an INR of 2.5-3.5. Blood BLOOD SPECIMEN / Unknown Venipuncture / Unknown 10/08/2024 5:27 PM [employer] 10/08/2024 5:36 PM [employer] Moncho Kramer MD LAB - COAGULATION O RDERABLES Performing Organization Address City/[facility]/ZIP Co de Phone Number [facility] [address] [place] [address], [facility] [phone] * TYPE + SCREEN PANEL (10/08/2024 5:27 PM INVESTIGATOR WELFARE) [facility] [address] Antibody Screen NEG 6:15 PM INVESTIGATOR WELFARE [facility] ABO Rh A POS 10/08/2024 6:15 PM INVESTIGATOR WELFARE [facility] Blood Bank BLOOD SPECIMEN / Unknown Venipuncture / Unknown 10/08/2024 5:27 PM INVESTIGATOR WELFARE 10/08/2024 5:37 PM INVESTIGATOR WELFARE Moncho Kramer MD LAB - BLOOD BANK OR DERABLES [facility] [address] [place] [address], [facility] [phone] * (ABNORMAL) CBC W AUTO DIFFERENTIAL (10/08/2024 5:27 PM INVESTIGATOR WELFARE) WBC 15.8(H) 4.0 - 10.7 x10E9/L 10/08/2024 5:47 PM [facility] RBC Count 4.12(L) 4.30 - 5.80 x10E12/L 10/08/2024 5:47 PM [facility] Hemoglobin 12.8(L) 13.3 - 17.5 g/dL 10/08/2024 5:47 PM [facility] Hematocrit 37.6(L) 38.7 - 51.1 % 10/08/2024 5:47 PM [facility] MCV 91.3 80.0 - 98.0 fL 10/08/2024 5:47 PM [facility] MCH 31.1 26.7 - 33.6 pg 10/08/2024 5:47 PM [facility] MCHC 34.0 31.7 - 36.3 g/dL 10/08/2024 5:47 PM [facility] RDW-CV 13.6 11.3 - 14.8 % 10/08/2024 5:47 PM [facility] Platelet Count 278 150 - 420 x10E9/L 10/08/2024 5:47 PM [facility] MPV 10.4 7.8 - 11.4 fL 10/08/2024 5:47 PM [facility] Neutrophil % 72.3 41.0 - 74.0 % 10/08/2024 5:47 PM [facility] Lymphocyte % 16.4(L) 17.0 - 47.0 % 10/08/2024 5:47 PM [facility] Monocyte % 8.4 3.0 - 11.0 % 10/08/2024 5:47 PM [facility] Eosinophil % 2.0 0.0 - 7.0 % 10/08/2024 5:47 PM [facility] Basophil % 0.5 0.0 - 1.6 % 10/08/2024 5:47 PM [facility] Immature Granulocytes % 0.4 0.0 - 1.0 % 10/08/2024 5:47 PM [facility] Neutrophil Absolute 11.40(H) 1.60 - 7.50 x10E9/L 10/08/2024 5:47 PM [facility] Lymphocyte Absolute 2.59 1.00 - 4.40 x10E9/L 10/08/2024 5:47 PM [facility] Monocyte Absolute 1.32(H) 0.15 - 1.00 x10E9/L 10/08/2024 5:47 PM [facility] Eosinophil Absolute 0.32 0.00 - 0.60 x10E9/L 10/08/2024 5:47 PM [facility] Basophil Absolute 0.08 0.00 - 0.13 x10E9/L 10/08/2024 5:47 PM [facility] Blood BLOOD SPECIMEN / Unknown Venipuncture / Unknown 10/08/2024 5:27 PM INVESTIGATOR WELFARE 10/08/2024 5:39 PM INVESTIGATOR WELFARE Moncho Kramer MD LAB - HEMATOLOGY OR DERABLES Performing Organization Address [facility] Co de Phone Number [facility] [address] [place] [id number] [phone] * (ABNORMAL) BASIC METABOLIC PANEL (CALCIUM TOTAL) (10/08/2024 5:27 PM INVESTIGATOR WELFARE) BUN 16 7 - 26 mg/dL 10/08/2024 6:08 PM [facility] Creatinine 1.14 0.71 - 1.16 mg/dL 10/08/2024 6:08 PM [facility] Sodium 138 136 - 145 mmol/L 10/08/2024 6:08 PM [facility] Potassium 3.9 3.5 - 4.5 mmol/L 10/08/2024 6:08 PM [facility] Chloride 104 98 - 107 mmol/L 10/08/2024 6:08 PM [facility] CO2 24 22 - 29 mmol/L 10/08/2024 6:08 PM [facility] Glucose 104(H) 70 - 99 mg/dL 10/08/2024 6:08 PM [facility] Calcium 8.9 8.4 - 10.2 mg/dL 10/08/2024 6:08 PM [facility] Anion Gap 10 6 - 16 10/08/2024 6:08 PM [facility] BUN/Creatinine Ratio 14 7 - 23 10/08/2024 6:08 PM [facility] Osmolality Calculated 287 275 - 295 mOsm/kg 10/08/2024 6:08 PM [facility] eGFR by CKD-EPI 80(L) >=90 mL/min/1.7 3 m2 10/08/2024 6:08 PM [facility] Blood BLOOD SPECIMEN / Unknown Venipuncture / Unknown 10/08/2024 5:27 PM INVESTIGATOR WELFARE 10/08/2024 5:39 PM INVESTIGATOR WELFARE Moncho Kramer MD LAB - CHEMISTRY ORD ERABLES Performing Organization Address City/[facility]/ZIP Co de Phone Number [address] [address], [place] [phone] * ALCOHOL ETHYL BLOOD (10/08/2024 5:27 PM INVESTIGATOR WELFARE) Ethanol (mg/dL) <10 <10 mg/dL 6:08 PM [facility] Ethanol Calculated (g/dL) <0.010 <=0.010 g/dL 10/08/2024 6:08 PM [facility] Blood BLOOD SPECIMEN / Unknown Venipuncture / Unknown 10/08/2024 5:27 PM INVESTIGATOR WELFARE 10/08/2024 5:39 PM INVESTIGATOR WELFARE Narrative [facility] - 10/08/2024 6:08 PM INVESTIGATOR WELFARE Ethanol Interp <10: None Detected. 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 HELPER: >100 mg/dl Potentially Critical: >250 mg/dl Potentially [...] Kramer MD LAB - CHEMISTRY ORD ERABLES Performing Organization Address City/[facility]/ZIP Co de Phone Number [address] [address], [place] [phone] * XR CHEST 1VW PORTABLE (10/08/2024 5:15 PM INVESTIGATOR WELFARE) Anatomical Region Laterality Modality Chest Digital Radiogra phy 10/08/2024 5:26 PM INVESTIGATOR WELFARE Narrative 10/09/2024 8:02 AM INVESTIGATOR WELFARE PROCEDURE: XR CHEST 1VW PORTABLE, DATE/TIME OF EXAM: 10/08/2024 5:23 PM, LOCATION [facility] INDICATION: Trauma ADDITIONAL CLINICAL INFORMATION: Ordering Provider Reason For Exam: Technologist Note: Additional: COMPARISON: None. FINDINGS/IMPRESSION: No focal consolidation, pleural effusion, or pneumothorax. The cardiomediastinal silhouette is normal. No acute osseous abnormality. Degenerative changes of the thoracic spine. > Dictated by Caron Jimenes MD (founder president and ceo) Maycol Levi MD have personally reviewed and interpreted this examination/study. > Interpreting Provider: Maycol Warren MD on 10/09/2024 8:02 AM Procedure Note Maycol Warren MD - 10/09/2024 PROCEDURE: XR CHEST 1VW PORTABLE, DATE/TIME OF EXAM: 10/08/2024 5:23PM, LOCATION [facility] INDICATION: Trauma ADDITIONAL CLINICAL INFORMATION: Ordering Provider Reason For Exam: Technologist Note: Additional: COMPARISON: None. FINDINGS/IMPRESSION: No focal consolidation, pleural effusion, or pneumothorax. The cardiomediastinal silhouette is normal. No acute osseousabnormality. Degenerative changes of the thoracic spine. > Dictated by Caron Jimenes MD (founder president and ceo) Maycol Levi MD have personally reviewed and interpreted this examination/study. > Interpreting Provider: Maycol Warren MD on 10/09/2024 8:02 AM Moncho Kramer MD DIAGNOSTIC IMAGING ORDERABLES Care Teams Asset Coordinator Relationship Specialty Start Date End Date Brianda Maciel PA-C [address] [place] [phone] PCP - General Physician Supervisor Cutting Department 10/08/24
--- OUTSIDE RECORDS SUMMARY | 2024-10-20 17:12 | XMS_ITS | Clinical Summary ---
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 Name Role Phone Unavailable Primary Care Provider Unavailabl e Social History Tobacco Use Types Packs/Day Years Used Date Smoking Tobacco: Never Assessed Sex and Gender Information Value Date Recorded Sex Assigned at Not on file Legal Sex Male 8:47 PM CDT Gender Identity Not on file Sexual Orientation Not on file Last Filed Vital Signs Vital Sign Reading Time Taken Comments Blood Pressure 138/74 07/03/2016 4:04 PM CORPORATE STRATEGY ANALYST Pulse 80 09/02/2013 11:37 AM CORPORATE STRATEGY ANALYST Temperature - - Respiratory Rate - - Oxygen Saturation - - Inhaled Oxygen Concentration - - Weight 108.9 kg (240 lb) 07/03/2016 4:04 PM CORPORATE STRATEGY ANALYST Height 185.4 cm (6' 1 ) 07/03/2016 4:04 PM CORPORATE STRATEGY ANALYST Body Mass Index 31.66 07/03/2016 4:04 PM CORPORATE STRATEGY ANALYST Plan of Treatment Health Maintenance Due Date Last Done Comments Colorectal Cancer Screening Colonoscopy (10 Years) 1976 Annual Physical 10/12/1979 Hepatitis C 1994 DTaP, Tdap and Td Vaccines ( 1 - Tdap) 10/12/1995 Hepatitis B Vaccines (1 of 3 - 19+ 3-dose series) 10/12/1995 COVID-19 Vaccine (2023-2 5 season) 2024 Influenza Adult (#1) 2024 Meningococcal B Vaccine Aged Out No l onger eligible based on patient's age to complete this topic Meningococcal Vaccine Aged Out No nuzhat bryan eligible based on patient's age to complete this topic Pneumococcal Vaccine: Pediat rics (0 to 5 Years) and At-Risk Patients (6 to 64 Years) Aged Out No longer eligible b ased on patient's age to complete this topic RSV Immunizations Under 20 Months Aged Out No longer eligible based on patient's age to complete this topic Insurance [employer] Advance Directives Documents on File Type Date Recorded 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
--- OUTSIDE RECORDS SUMMARY | 2024-10-20 17:12 | XMS_ITS | Data Portability ---
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 Plan of Treatment Reminders Order Date Submit Date Provider Last Modified By Organization Details Last Modified Time Details Appointments ANY 15 2024 07:45A ROYA TORREZ Not available Not available Not available Lab HbA1c (hemoglob in A1c), blood 2023 024 [facility], [address], [address], [place], [address], 07/01/2024 12:16:36 CMP, serum or plasma 2023 024 [facility], [address], [address], [place], [address], 06/30/2024 23:07:38 CBC w/ auto diff 2023 024 [facility], [address], [address], [place], [address], 06/30/2024 23:07:39 lipid panel, serum 2023 024 [facility], [address], [address], [place], [address], 06/30/2024 23:07:37 albumin/c reatinine , mass ratio, urine 2023 024 [facility], [address], [address], [place], [address], 07/01/2024 12:16:35 HIV 1 + 2, meaningfu l use set 2022 023 [facility], [address], [address], [place], [address], 02/27/2023 12:13:55 RPR (rapid plasma reagin), serum 2022 023 [facility], [address], [address], [place], [address], 02/27/2023 12:13:54 chlamydia trachomat is + neisseria gonorrhoe ae + trichomon as vaginalis DNA panel, DOTTY+probe , unspecifi ed specimen 2022 023 [facility], [address], [address], [place], [address], 02/27/2023 12:13:52 Hepatitis C IgG Ab, qual, serum 2022 023 [facility], [address], [address], [place], [address], 02/27/2023 12:13:51 noninvasi ve colorecta l cancer DNA + occult blood screening , QL, stool 2022 023 [place] [facility] (Cologuard Orders Only), [address], [address], [place], [address], 03/21/2023 03:07:53 CMP, serum or plasma 2022 023 [facility], [address], [address], [place], [address], 02/27/2023 08:23:50 CBC w/ auto diff 2022 023 [facility], [address] [facility], [address], [place], [address], 02/27/2023 08:23:51 lipid panel, serum 2022 023 [facility], [address] [facility], [address], [place], [address], 02/27/2023 08:23:49 HbA1c (hemoglob in A1c), blood 2022 023 [facility], [address] [facility], [address], [place], [address], 02/27/2023 12:13:53 Referral cardiolog ist referral 2023 024 KAZ Cook DO, [address] [facility] [address], [address], [place], [address], 08/21/2024 13:44:18 otolaryng ologist referral 2023 024 [email or web address] Thiago Saavedra, [address] [facility], [place], [address], 08/29/2024 07:36:20 pulmonolo gist referral 2023 024 [email or web address] Reji Garcia, [address] [facility] [facility], [address], [place], [address], 07/29/2024 08:16:15 dermatolo gist referral 2023 024 [email or web address] [facility], [address] [facility], [place], [address], 07/29/2024 08:16:17 otolaryng ologist referral 2022 023 [facility], [address], [place], [address], 05/16/2023 12:27:04 pulmonolo gist referral 2022 023 gloria Null MD, [address] [facility] [address] [facility] [place], [address], 04/26/2023 14:38:37 Procedures None recorded. Surgeries None recorded. Imaging XR, chest, 2 view [address] ([facility]), [address] [facility] [place], [address], 07/29/2024 08:16:25 electroca rdiogram [address] ([facility]), [address] [facility] [place], [address], 07/29/2024 08:16:25 US, thyroid [address] ([facility]), [address] [facility] [place], [address], 07/29/2024 08:16:25 CT, chest, w/o contrast [address] ([facility]), [address] [facility] [place], [address], 07/29/2024 08:16:25 MRI, cervical spine, w/o contrast [address] [facility], [facility] [address], [place], [address], 02/27/2023 16:16:57 XR, cervical spine, 2 or 3 view 2022 023 [facility], [address] [facility] [address], [place], [address], 03/02/2023 11:37:09 Medication Orders hydrocodo ne 5 mg-acetam inophen 325 mg tablet 03/03/ 2025 03/03/2 025 [facility], [address] [place] [address], [address], 10/13/2024 15:58:22 lisinopri l 10 mg-hydroc hlorothia zide 12.5 mg tablet 2023 024 [place] [address], [address] [place] [address], [address], 06/30/2024 13:00:32 lisinopri l 20 mg tablet 2023 024 [place] [address], [address] [place] [address], [address], 11/13/2023 15:28:22 folic acid 1 mg tablet 2022 023 [place] [address], [address] [place] [address], [address], 02/26/2023 13:26:48 thiamine HCl (vitamin B1) 100 mg tablet 2022 023 [place] [address], [address] [place] [address], [address], 05/14/2023 14:32:22 ketoconaz ole 2 % topical cream 2022 023 [facility], [address] [place] [address], [address], 05/14/2023 14:32:50 albuterol sulfate HFA 90 mcg/actua tion aerosol inhaler 2022 023 [place] [address], [address] [place] [address], [address], 02/26/2023 13:26:47 Symbicort 160 mcg-4.5 mcg/actua tion HFA aerosol inhaler [address], [address] [place] [address] [place], [address], 02/26/2023 13:26:48 Patient TargetsNo targets recorded. Patient Instructions Encounter Date Encounter Id Patient Instructions Last Modified By Organization Details Last Modified Time 11/13/2023 [id number] A healthy lifestyle: care instructions Not available 11/13/2023 15:32:21 06/30/2024 [id number] A healthy lifestyle: care instructions Not available 06/30/2024 12:30:05 10/13/2024 [id number] A healthy lifestyle: care instructions Not available 10/16/2024 10:02:07 Reason for Referral Environmental Solutions Engineer Referral fo r Lesion of oral mucosa Referring Physician: General Satya Garcia, Encounter Date: 02/26/2023 Shoe Ironer Referral for C hronic obstructive pulmonary disease Referring Physician: General Satya Garcia, Encounter Date: 02/26/2023 Shoe Ironer Referral for C hronic obstructive pulmonary disease Referring Physician: General Satya Garcia, Encounter Date: 06/30/2024 Environmental Solutions Engineer Referral fo r Lesion of lip Referring Physician: General Satya Garcia, Encounter Date: 06/30/2024 Railroad Auditor Referral for S kin lesion Referring Physician: General Satya Garcia, Encounter Date: 06/30/2024 Apprenticeship Training Representative Referral for Ch est pain Referring Physician: General Satya Garcia, Encounter Date: 06/30/2024 Results Created Date Observation Date Name Description Value Unit Range Abnormal Flag Note LastModifiedBy Organization Detail LastModifiedTime 02/27/2002/27/2023 LIPID PANEL cholesterol, total 193 mg/dL 100-19 9 Not Available [facility] ([facility]) [address] [facility], [place], [address], 02/27/2023 08:23:49 02/27/2002/27/2023 LIPID PANEL triglyceride s 93 mg/dL 0-149 Not Available [facility]) [address] [place], [address], 02/27/2023 08:23:49 02/27/20 23 02/27/2023 LIPID PANEL HDL cholesterol 70 mg/dL >39 Not Available [facility] ([facility]) [address] [place], [address], 02/27/2023 08:23:49 02/27/20 23 02/27/2023 LIPID PANEL VLDL cholesterol rachael 17 mg/dL 5-40 Not Available [facility] ([facility]) [address] [place], [address], 02/27/2023 08:23:49 02/27/20 23 02/27/2023 LIPID PANEL LDL chol calc ([facility]) 106 mg/dL 0-99 above high normal Not Available [facility] ([facility]) [address] [place], [address], 02/27/2023 08:23:49 02/27/20 23 02/27/2023 COMP. METAB OLIC PANEL (14) glucose 104 mg/dL 70-99 above high normal Not Available [facility] ([facility]) [address] [place], [address], 02/27/2023 08:23:50 02/27/20 23 02/27/2023 COMP. METAB OLIC PANEL (14) BUN 17 mg/dL 6-24 Not Available [facility] ([facility]) [address] [place], [address], 02/27/2023 08:23:50 02/27/20 23 02/27/2023 COMP. METAB OLIC PANEL (14) creatinine 0.81 mg/dL 0.76-1 .27 Not Available [facility] ([facility]) [address] [place], [address], 02/27/2023 08:23:50 02/27/20 23 02/27/2023 COMP. METAB OLIC PANEL (14) eGFR 110 mL/mi n/1.7 3 >59 Not Available [facility] ([facility]) [address] [place], [address], 02/27/2023 08:23:50 02/27/20 23 02/27/2023 COMP. METAB OLIC PANEL (14) BUN/creatini ne ratio 21 9-20 above high normal Not Available [facility] ([facility]) [address] [facility], [place], [address], 02/27/2023 08:23:50 02/27/20 23 02/27/2023 COMP. METAB OLIC PANEL (14) sodium 141 mmol/ L 134-14 4 Not Available [facility] ([facility]) [address] [facility], [place], [address], 02/27/2023 08:23:50 02/27/20 23 02/27/2023 COMP. METAB OLIC PANEL (14) potassium 4.5 mmol/ L 3.5-5. 2 Not Available [facility] ([facility]) [address] [place], [address], 02/27/2023 08:23:50 02/27/20 23 02/27/2023 COMP. METAB OLIC PANEL (14) chloride 105 mmol/ L 96-106 Not Available [facility] ([facility]) [address] [place], [address], 02/27/2023 08:23:50 02/27/20 23 02/27/2023 COMP. METAB OLIC PANEL (14) carbon dioxide, total 22 mmol/ L 20-29 Not Available [facility] ([facility]) [address] [place], [address], 02/27/2023 08:23:50 02/27/20 23 02/27/2023 COMP. METAB OLIC PANEL (14) calcium 9.7 mg/dL 8.7-10 .2 Not Available [facility] ([facility]) [address], [place], [address], 02/27/2023 08:23:50 02/27/20 23 02/27/2023 COMP. METAB OLIC PANEL (14) protein, total 7.3 g/dL 6.0-8. 5 Not Available [facility] ([facility]) [address], [place], [address], 02/27/2023 08:23:50 02/27/20 23 02/27/2023 COMP. METAB OLIC PANEL (14) albumin 4.9 g/dL 4.1-5. 1 Ple ase note refer ence zbigniew sampson Not Available [facility] ([facility]) [address], [place], [address], 02/27/2023 08:23:50 02/27/20 23 02/27/2023 COMP. METAB OLIC PANEL (14) globulin, total 2.4 g/dL 1.5-4. 5 Not Available [facility] ([facility]) [address] [place], [address], 02/27/2023 08:23:50 02/27/20 23 02/27/2023 COMP. METAB OLIC PANEL (14) A/G ratio 2.0 1.2-2. 2 Not Available [facility] ([facility]) [address] [place], [address], 02/27/2023 08:23:50 02/27/20 23 02/27/2023 COMP. METAB OLIC PANEL (14) bilirubin, total 0.2 mg/dL 0.0-1. 2 Not Available [facility] ([facility]) [address] [place], [address], 02/27/2023 08:23:50 02/27/20 23 02/27/2023 COMP. METAB OLIC PANEL (14) alkaline phosphatase 57 IU/L 44-121 Not Available [facility] ([facility]) [address] [facility], [place], [address], 02/27/2023 08:23:50 02/27/20 23 02/27/2023 COMP. METAB OLIC PANEL (14) AST (SGOT) 18 IU/L 0-40 Not Available [facility] ([facility]) [address] [facility], [place], [address], 02/27/2023 08:23:50 02/27/20 23 02/27/2023 COMP. METAB OLIC PANEL (14) ALT (SGPT) 29 IU/L 0-44 Not Available [facility] ([facility]) [address] [facility], [place], [address], 02/27/2023 08:23:50 02/27/20 23 02/27/2023 CBC WITH DIFFE RENTI AL/PL ATELE T WBC 8.2 x10e3 /uL 3.4-10 .8 Not Available [facility] ([facility]) [address] [place], [address], 02/27/2023 08:23:51 02/27/20 23 02/27/2023 CBC WITH DIFFE RENTI AL/PL ATELE T RBC 4.85 x10e6 /uL 4.14-5 .80 Not Available [facility] ([facility]) [address] [place], [address], 02/27/2023 08:23:51 02/27/20 23 02/27/2023 CBC WITH DIFFE RENTI AL/PL ATELE T hemoglobin 15.1 g/dL 13.0-1 7.7 Not Available [facility] ([facility]) [address] [place], [address], 02/27/2023 08:23:51 02/27/20 23 02/27/2023 CBC WITH DIFFE RENTI AL/PL ATELE T hematocrit 44.0 % 37.5-5 1.0 Not Available [facility] ([facility]) [address] [facility], [place], [address], 02/27/2023 08:23:51 02/27/20 23 02/27/2023 CBC WITH DIFFE RENTI AL/PL ATELE T MCV 91 fL 79-97 Not Available [facility] ([facility]) [address] [facility], [place], [address], 02/27/2023 08:23:51 02/27/20 23 02/27/2023 CBC WITH DIFFE RENTI AL/PL ATELE T MCH 31.1 pg 26.6-3 3.0 Not Available [facility] ([facility]) [address] [facility], [place], [address], 02/27/2023 08:23:51 02/27/20 23 02/27/2023 CBC WITH DIFFE RENTI AL/PL ATELE T MCHC 34.3 g/dL 31.5-3 5.7 Not Available [facility] ([facility]) [address] [facility], [place], [address], 02/27/2023 08:23:51 02/27/20 23 02/27/2023 CBC WITH DIFFE RENTI AL/PL ATELE T RDW 13.2 % 11.6-1 5.4 Not Available [facility] ([facility]) [address] [facility], [place], [address], 02/27/2023 08:23:51 02/27/20 23 02/27/2023 CBC WITH DIFFE RENTI AL/PL ATELE T platelets 273 x10e3 /uL 150-45 0 Not Available [facility] ([facility]) [address] [facility], [place], [address], 02/27/2023 08:23:51 02/27/20 23 02/27/2023 CBC WITH DIFFE RENTI AL/PL ATELE T neutrophils 59 % notest ab. Not Available [facility] ([facility]) [address] [facility], [place], [address], 02/27/2023 08:23:51 02/27/20 23 02/27/2023 CBC WITH DIFFE RENTI AL/PL ATELE T lymphs 27 % notest ab. Not Available [facility] ([facility]) [address] [facility], [place], [address], 02/27/2023 08:23:51 02/27/20 23 02/27/2023 CBC WITH DIFFE RENTI AL/PL ATELE T monocytes 9 % notest ab. Not Available [facility] ([facility]) [address] [facility], [place], [address], 02/27/2023 08:23:51 02/27/20 23 02/27/2023 CBC WITH DIFFE RENTI AL/PL ATELE T eos 4 % notest ab. Not Available [facility] ([facility]) [address] [facility], [place], [address], 02/27/2023 08:23:51 02/27/20 23 02/27/2023 CBC WITH DIFFE RENTI AL/PL ATELE T basos 1 % notest ab. Not Available [facility] ([facility]) [address] [facility], [place], [address], 02/27/2023 08:23:51 02/27/20 23 02/27/2023 CBC WITH DIFFE RENTI AL/PL ATELE T neutrophils (absolute) 4.8 x10e3 /uL 1.4-7. 0 Not Available [facility] ([facility]) [address] [facility], [place], [address], 02/27/2023 08:23:51 02/27/20 23 02/27/2023 CBC WITH DIFFE RENTI AL/PL ATELE T lymphs (absolute) 2.2 x10e3 /uL 0.7-3. 1 Not Available [facility] ([facility]) [address] [facility], [place], [address], 02/27/2023 08:23:51 02/27/20 23 02/27/2023 CBC WITH DIFFE RENTI AL/PL ATELE T monocytes(ab solute) 0.8 x10e3 /uL 0.1-0. 9 Not Available [facility] ([facility]) [address] [facility], [place], [address], 02/27/2023 08:23:51 02/27/20 23 02/27/2023 CBC WITH DIFFE RENTI AL/PL ATELE T eos (absolute) 0.3 x10e3 /uL 0.0-0. 4 Not Available [facility] ([facility]) [address] [facility], [place], [address], 02/27/2023 08:23:51 02/27/20 23 02/27/2023 CBC WITH DIFFE RENTI AL/PL ATELE T baso (absolute) 0.1 x10e3 /uL 0.0-0. 2 Not Available [facility] ([facility]) [address] [facility], [place], [address], 02/27/2023 08:23:51 02/27/20 23 02/27/2023 CBC WITH DIFFE RENTI AL/PL ATELE T immature granulocytes 0 % notest ab. Not Available [facility] ([facility]) [address] [place], [address], 02/27/2023 08:23:51 02/27/20 23 02/27/2023 CBC WITH DIFFE RENTI AL/PL ATELE T immature grans (abs) 0.0 x10e3 /uL 0.0-0. 1 Not Available [facility] ([facility]) [address] [place], [address], 02/27/2023 08:23:51 02/27/20 23 02/27/2023 HEMOG LOBIN A1C hemoglobin A1C 5.8 % 4.8-5. 6 above high normal Predi abete s: 5.7 - 6.4 Diabe semaj: >6.4 Glyce aria contr ol for adult s with diabe semaj: <7.0 Not Available [facility] ([facility]) [address] [facility], [place], [address], 02/27/2023 12:13:53 02/27/20 23 02/28/2023 HCV ANTIB EM hep C virus Ab Non Reacti ve nonrea ctive HCV antib em alone does not diffe renti ate betwe en previ ously resol john infec tion and activ e infec tion. Equiv ocal and React wesley HCV antib em resul ts shoul d be follo wed up with an HCV RNA test to suppo rt the diagn osis of activ e HCV infec tion. Not Available [facility] ([facility]) [address] [facility], [place], [address], 02/28/2023 06:19:28 02/27/2002/27/2023 WRIDA EN AUTHO RIZAT ION written authorizatio n Commen t Dolores en Autho rizat ion Recei john. Autho rizat ion recei john from PER ORIGI NAL ORDER 02-27 Logge d by Meredith fair Not Available [facility] ([facility]) [address] [facility], [place], [address], 02/28/2023 06:19:29 02/27/2002/28/2023 RPR, RFX QN RPR/C ONFIR M TP RPR Non Reacti ve nonrea ctive Not Available [facility] ([facility]) [address] [facility], [place], [address], 02/28/2023 06:19:29 02/27/2002/28/2023 HIV AB/P2 4 AG WITH REFLE X HIV Ab/P24 Ag screen Non Reacti ve nonrea ctive HIV Negat wesley HIV-1 /HIV- 2 antib odies and HIV-1 p24 antig en were NOT detec silvia. There is no labor atory evide nce of HIV infec tion. Not Available [facility] ([facility]) [address] [facility], [place], [address], 02/28/2023 06:19:30 02/27/20 23 02/27/2023 HIV AB/P2 4 AG WITH REFLE X HIV Ab/P24 Ag screen - Pleas e refer to the follo wing speci men for addit ional lab resul ts. SEE Not Available [facility] ([facility]) [address] [facility], [place], [address], 02/27/2023 12:13:55 02/27/2002/27/2023 RPR, RFX QN RPR/C ONFIR M TP RPR - Pleas e refer to the follo wing speci men for addit ional lab resul ts. SEE Not Available [facility] ([facility]) [address] [facility], [place], [address], 02/27/2023 12:13:54 02/27/20 23 02/27/2023 CT, NG, TRICH VAG BY DOTTY chlamydia by DOTTY - Test not perfo rmed. No Aptim a trans port recei john. Not Available [facility] ([facility]) [address] [facility], [place], [address], 02/27/2023 12:13:52 02/27/20 23 02/27/2023 CT, NG, TRICH VAG BY DOTTY gonococcus by DOTTY - Test not perfo rmed Not Available [facility] ([facility]) [address] [place], [address], 02/27/2023 12:13:52 02/27/20 23 02/27/2023 CT, NG, TRICH VAG BY DOTTY trich vag by DOTTY - Test not perfo rmed Not Available [facility] ([facility]) [address] [place], [address], 02/27/2023 12:13:52 02/27/20 23 02/27/2023 HCV ANTIB EM hep C virus Ab - Pleas e refer to the follo wing speci men for addit ional lab resul ts. SEE 198-3 - HCV antib em alone does not diffe renti ate betwe en previ ously resol john infec tion and activ e infec tion. Equiv ocal and React wesley HCV antib em resul ts shoul d be follo wed up with an HCV RNA test to suppo rt the diagn osis of activ e HCV infec tion. Not Available [facility] ([facility]) [address] [facility], [place], [address], 02/27/2023 12:13:51 02/27/20 23 02/27/[address] PROBL EM request problem TNP Test not perfo rmed. No Aptim a trans port recei john. TEST: [id number] 0 Ct, Ng, Trich vag by DOTTY [id number] 2 No Speci men Recei john Not Available [facility] ([facility]) [address] [facility], [place], [address], 02/27/2023 12:13:50 02/27/20 23 02/27/2023 SPECI MEN STATU S REPOR T specimen status report TNP Pleas e refer to the follo wing speci men for addit ional lab resul ts. TEST: 41582 5 RPR, Rfx Qn RPR/[place] [address] 5 HIV Ab/p2 4 Ag with [place]le x [id number] 9 HCV Antib em SEE 198-3 90- Not Available [facility] ([facility]) [address] [facility], [place], [address], 02/27/2023 12:13:49 03/13/20 23 03/13/2023 COLOG UARD cologuard result reportable Negati ve negati ve NEGAT WESLEY TEST RESUL T. A negat wesley Colog uard resul t indic ates a low likel ihood that a color ectal cance r (CRC) or advan jose daniel adeno ma (godfrey omato us polyp s with more advan jose daniel pre-m align ant featu res) is prese nt. [facility] that a perso n with a negat wesley Colog uard test has a color ectal cance r is less than 1 in 1500 (nega tive predi ctive value >99.9 %) or has an advan jose daniel adeno ma is less than 5.3% (nega tive predi ctive value 94.7% ). These data are based on a prosp ectiv e cross -sect ional study of ,00 0 indiv idual s at [place] [facility] risk for color ectal cance r who were scree dirk with both Colog uard and colon oscop y. (Hayes Guzman et al, N Engl J Med 2014; 370(1 4):12 86-12 97) The haylee l value (refe rence range ) for this assay is negat wesley. COLOG UARD RE-SC REECARITO NG RECOM MENDA TION: Perio dic color ectal cance r scree martin is an impor tant part of preve ntive healt hcare for asymp tomat ic indiv idual s at [place] risk for color ectal cance r. Follo wing a negat wesley Colog uard resul t, the Ameri can Cance r Socie ty and U.S. Multi -Soci ety Task Force scree martin guide lines recom mend a Colog uard re-sc reecarito ng inter gaurav of 3 years . Refer ences : Ameri can Cance r Socie ty Guide line for Color ectal Cance r Scree martin: https ://ww w.can cer.o rg/ca ncer/ colon -rect al-ca ncer/ detec tion- diagn osis- stagi ng/ac s-rec ommen datio ns.ht ml.; Ronal LOPEZ, Yuli DALE, Driss BabbK, Color ectal Cance r Scree martin: Recom menda tions for Physi cians and Patie nts from the U.S. Multi -Soci ety Task Force on Color ectal Cance r Scredarron salazar , Am J David beynte rolog y 2017; 112:1 016-1 030. TEST DESCR IPTIO N: [place] site algor ithmi c chas sis of stool DNA-b norman heller with hemog lobin immun oassa y. Quant itati ve value s of indiv idual bioma rkers are not repor table and are not assoc iated with indiv idual bioma rker resul t refer ence range s. Colog uard is inten ded for color ectal cance r scree martin of adult s of eithe r sex, 45 years or older , who are at [facility] for color ectal cance r (CRC) . Colog uard has been appro john for use by the U.S. FDA. The perfo rmanc e of Colog uard was estab lishe d in a cross secti onal study of [facility] adult s aged 50-84 . Colog uard perfo rmanc e in patie nts ages 45 to 49 years was estim ated by sub-g roup chas sis of near- age group s. Colon oscop ies perfo rmed for a posit wesley resul t may find as the most clini cris signi jorge ocasio lesio n: color ectal cance r [4.0% ], advan jose daniel adeno ma (incl uding sessi le tyrel silvia polyp s great er than or equal to 1cm diame ter) [20%] or non- advan jose daniel adeno ma [31%] ; or no color ectal neopl juan daniel [45%] . These estim ates are deriv ed from a prosp ectiv e cross -sect ional scree martin study of 10,00 0 indiv idual s at [facility] risk for color ectal cance r who were scree dirk with both Colog uard and colon oscop y. (Hayes Pulliam al, N Engl J Med 2014; 370(1 4):12 86-12 97.) Colog uard may produ ce a false negat wesley or false posit wesley resul t (no color ectal cance r or preca ncero us polyp prese nt at colon oscop y follo w up). A negat wesley Colog uard test resul t does not guara ntee the absen ce of CRC or advan jose daniel adeno ma (pre- cance r). The curre nt Colog uard scree martin inter gaurav is every 3 years . ([place]mer [place] Cance r Socie ty and [place] Multi -Soci ety Task Force ). Colog uard perfo rmanc e data in a 10,00 0 patie nt pivot al study using colon oscop y as the refer ence metho d can be acces sed at the follo wing locat ion: www.e xactl abs.c om/re sults . Addit ional descr iptio n of the Colog uard test proce ss, warni ngs and preca ution s can be found at www.c ologu ivon.c om. Not Available [facility] (Cologuard Orders Only) [address], [place], [address], 03/21/2023 03:07:53 06/30/20 24 06/30/2024 LIPID PANEL cholesterol, total 223 mg/dL 100-19 9 above high normal Not Available [facility] [address] [place] [address], [address], 06/30/2024 23:07:37 06/30/20 24 06/30/2024 LIPID PANEL triglyceride s 96 mg/dL 0-149 Not Available [facility] [address] [place], [address], 06/30/2024 23:07:37 06/30/20 24 06/30/2024 LIPID PANEL HDL cholesterol 72 mg/dL 40-999 Not Available [facility] Department [address] [place], [address], 06/30/2024 23:07:37 06/30/20 24 06/30/2024 LIPID PANEL VLDL cholesterol rachael 19 mg/dL 5-40 Not Available [facility] Department [address] [place], [address], 06/30/2024 23:07:37 06/30/20 24 06/30/2024 LIPID PANEL LDL chol calc (nih) 146 mg/dL 0-99 above high normal Not Available [facility] [address] [place], [address], 06/30/2024 23:07:37 06/30/20 24 06/30/2024 COMP. METAB OLIC PANEL (14) glucose 82 mg/dL 70-99 Not Available [facility] [address] [place] [address], [address], 06/30/2024 23:07:38 06/30/20 24 06/30/2024 COMP. METAB OLIC PANEL (14) BUN 12 mg/dL 6-24 Not Available [facility] [address] [place] [address], [address], 06/30/2024 23:07:38 06/30/20 24 06/30/2024 COMP. METAB OLIC PANEL (14) creatinine 0.73 mg/dL 0.76-1 .27 below low normal Not Available [facility] [address] [place] [address], [address], 06/30/2024 23:07:38 06/30/20 24 06/30/2024 COMP. METAB OLIC PANEL (14) eGFR 113 >=60 Units for eGFR value s are mL/mi n/1.7 3 The eGFR Calcu latio n has not been valid ated for patie nts under the age of 18. If test resul ts are displ ayed for a patie nt under the age of 18, disre eduin that value . Not Available [facility] [address] [place] [address], [address], 06/30/2024 23:07:38 06/30/20 24 06/30/2024 COMP. METAB OLIC PANEL (14) BUN/creatini ne ratio 17 9-20 Not Available [facility] Department [address] [place], [address], 06/30/2024 23:07:38 06/30/20 24 06/30/2024 COMP. METAB OLIC PANEL (14) sodium 140 mmol/ L 134-14 4 Not Available [facility] [address] [place], [address], 06/30/2024 23:07:38 06/30/20 24 06/30/2024 COMP. METAB OLIC PANEL (14) potassium 4.9 mmol/ L 3.5-5. 2 Not Available [facility] [address] [place], [address], 06/30/2024 23:07:38 06/30/20 24 06/30/2024 COMP. METAB OLIC PANEL (14) chloride 103 mmol/ L 96-106 Not Available [facility] [address] [place] [address], [address], 06/30/2024 23:07:38 06/30/20 24 06/30/2024 COMP. METAB OLIC PANEL (14) carbon dioxide, total 25 mmol/ L 20-29 Not Available [facility] [address] [place], [address], 06/30/2024 23:07:38 06/30/20 24 06/30/2024 COMP. METAB OLIC PANEL (14) calcium 10.0 mg/dL 8.7-10 .2 Not Available [facility] [address] [place], [address], 06/30/2024 23:07:38 06/30/20 24 06/30/2024 COMP. METAB OLIC PANEL (14) protein, total 7.7 g/dL 6.0-8. 5 Not Available [facility] [address] [place], [address], 06/30/2024 23:07:38 06/30/20 24 06/30/2024 COMP. METAB OLIC PANEL (14) albumin 4.9 g/dL 4.1-5. 1 Not Available [facility] [address] [place], [address], 06/30/2024 23:07:38 06/30/20 24 06/30/2024 COMP. METAB OLIC PANEL (14) globulin, total 2.8 g/dL 1.5-4. 5 Not Available [facility] [address] [place], [address], 06/30/2024 23:07:38 06/30/20 24 06/30/2024 COMP. METAB OLIC PANEL (14) A/G ratio 1.7 1.2-2. 2 Not Available [facility] [address] [place], [address], 06/30/2024 23:07:38 06/30/20 24 06/30/2024 COMP. METAB OLIC PANEL (14) bilirubin, total 0.3 mg/dL 0.0-1. 2 Not Available [facility] [address] [place], [address], 06/30/2024 23:07:38 06/30/20 24 06/30/2024 COMP. METAB OLIC PANEL (14) alkaline phosphatase 64 IU/L 44-121 Not Available [facility] Department [address] [place], [address], 06/30/2024 23:07:38 06/30/20 24 06/30/2024 COMP. METAB OLIC PANEL (14) AST (SGOT) 16 IU/L 0-40 Not Available [facility] Department [address] [place], [address], 06/30/2024 23:07:38 06/30/20 24 06/30/2024 COMP. METAB OLIC PANEL (14) ALT (SGPT) 26 IU/L 0-44 Not Available [facility] Department [address] [place], [address], 06/30/2024 23:07:38 06/30/20 24 06/30/2024 CBC WITH DIFFE RENTI AL/PL ATELE T WBC 8.4 x10e3 /uL 3.4-10 .8 Not Available [facility] [address] [place], [address], 06/30/2024 23:07:39 06/30/20 24 06/30/2024 CBC WITH DIFFE RENTI AL/PL ATELE T RBC 4.87 x10e6 /uL 4.14-5 .80 Not Available [facility] [address] [place], [address], 06/30/2024 23:07:39 06/30/20 24 06/30/2024 CBC WITH DIFFE RENTI AL/PL ATELE T hemoglobin 15.3 g/dL 13.0-1 7.7 Not Available [facility] [address] [place], [address], 06/30/2024 23:07:39 06/30/20 24 06/30/2024 CBC WITH DIFFE RENTI AL/PL ATELE T hematocrit 45.9 % 37.5-5 1.0 Not Available [facility] [address] [place], [address], 06/30/2024 23:07:39 06/30/20 24 06/30/2024 CBC WITH DIFFE RENTI AL/PL ATELE T MCV 94 fL 79-97 Not Available [facility] [address] [place], [address], 06/30/2024 23:07:39 06/30/20 24 06/30/2024 CBC WITH DIFFE RENTI AL/PL ATELE T MCH 31.4 pg 26.6-3 3.0 Not Available [facility] [address] [place], [address], 06/30/2024 23:07:39 06/30/20 24 06/30/2024 CBC WITH DIFFE RENTI AL/PL ATELE T MCHC 33.3 g/dL 31.5-3 5.7 Not Available [facility] [address] [place], [address], 06/30/2024 23:07:39 06/30/20 24 06/30/2024 CBC WITH DIFFE RENTI AL/PL ATELE T RDW 13.2 % 11.5-1 4.5 Not Available [facility] [address] [place], [address], 06/30/2024 23:07:39 06/30/20 24 06/30/2024 CBC WITH DIFFE RENTI AL/PL ATELE T platelets 312 x10e3 /uL 150-45 0 Not Available [facility] [address] [place], [address], 06/30/2024 23:07:39 06/30/20 24 06/30/2024 CBC WITH DIFFE RENTI AL/PL ATELE T neutrophils 61 % notest b. Not Available [facility] [address] [place], [address], 06/30/2024 23:07:39 06/30/20 24 06/30/2024 CBC WITH DIFFE RENTI AL/PL ATELE T lymphs 24 % notest b. Not Available [facility] [address] [place], [address], 06/30/2024 23:07:39 06/30/20 24 06/30/2024 CBC WITH DIFFE RENTI AL/PL ATELE T monocytes 11 % notest b. Not Available [facility] [address] [place], [address], 06/30/2024 23:07:39 06/30/20 24 06/30/2024 CBC WITH DIFFE RENTI AL/PL ATELE T eos 2 % notest b. Not Available [facility] [address] [place], [address], 06/30/2024 23:07:39 06/30/20 24 06/30/2024 CBC WITH DIFFE RENTI AL/PL ATELE T basos 1 % notest b. Not Available [facility] [address] [place], [address], 06/30/2024 23:07:39 06/30/20 24 06/30/2024 CBC WITH DIFFE RENTI AL/PL ATELE T neutrophils (absolute) 5.1 x10e3 /uL 1.4-7. 0 Not Available [facility] [address] [place], [address], 06/30/2024 23:07:39 06/30/20 24 06/30/2024 CBC WITH DIFFE RENTI AL/PL ATELE T lymphs (absolute) 2.0 x10e3 /uL 0.7-3. 1 Not Available [facility] [address] [place], [address], 06/30/2024 23:07:39 06/30/20 24 06/30/2024 CBC WITH DIFFE RENTI AL/PL ATELE T monocytes(ab solute) 0.9 x10e3 /uL 0.1-0. 9 Not Available [facility] [address] [place], [address], 06/30/2024 23:07:39 06/30/20 24 06/30/2024 CBC WITH DIFFE RENTI AL/PL ATELE T eos (absolute) 0.2 x10e3 /uL 0.0-0. 4 Not Available [facility] [address] [place], [address], 06/30/2024 23:07:39 06/30/20 24 06/30/2024 CBC WITH DIFFE RENTI AL/PL ATELE T baso (absolute) 0.1 x10e3 /uL 0.0-0. 2 Not Available [facility] [address] [place], [address], 06/30/2024 23:07:39 06/30/20 24 06/30/2024 CBC WITH DIFFE RENTI AL/PL ATELE T immature granulocytes 0.4 % notest b. Not Available [facility] [address] [place], [address], 06/30/2024 23:07:39 06/30/20 24 06/30/2024 CBC WITH DIFFE RENTI AL/PL ATELE T immature grans (abs) 0.0 x10e3 /uL 0.0-0. 1 Not Available [facility] [address] [place], [address], 06/30/2024 23:07:39 06/30/20 24 06/30/2024 CBC WITH DIFFE RENTI AL/PL ATELE T NRBC 0 % 0-0 Not Available [facility] [address] [place], [address], 06/30/2024 23:07:39 06/30/20 24 07/01/2024 ALBUM IN/CR EATIN INE RATIO ,URIN E creatinine, urine 30.9 mg/dL notest ab. Not Available [facility] ([facility]) [address] [facility], [place], [address], 07/01/2024 12:16:35 06/30/20 24 07/01/2024 ALBUM IN/CR EATIN INE RATIO ,URIN E albumin, urine <3.0 ug/mL notest ab. Not Available [facility] ([facility]) [address] [place], [address], 07/01/2024 12:16:35 06/30/20 24 07/01/2024 ALBUM IN/CR EATIN INE RATIO ,URIN E alb/creat ratio <10 Haylee l: 0 - 29 Moder ately incre ased: 30 - 300 Sever brennan incre ased: >300 Not Available [facility] ([facility]) [address] [place], [address], 07/01/2024 12:16:35 06/30/20 24 07/01/2024 HEMOG LOBIN A1C hemoglobin A1C 5.8 % 4.8-5. 6 above high normal Predi abete s: 5.7 - 6.4 Diabe semaj: >6.4 Glyce aria contr ol for adult s with diabe semaj: <7.0 Not Available [facility] ([facility]) [address] [facility], [place], [address], 07/01/2024 12:16:36 10/08/19 25 10/08/2024 Blood type and Indir ect antib em scree n panel - Blood blood group antibody screen [presence] in serum or plasma NEG Antib em Scree n NEG 10/08 6:[address] [facility] Not Available Not Available 10/10/2024 17:16:09 10/08/19 25 10/08/2024 Blood type and Indir ect antib em scree n panel - Blood ABO and Rh group [type] in blood A POS ABO Rh A POS 10/08 6:[address] [facility] Not Available Not Available 10/10/2024 17:16:09 10/08/19 25 10/08/2024 CBC W Auto Diffe renti al panel - Blood leukocytes [#/volume] in blood by automated count 15.8 text: 4.0 - 10.7 x10e9/ L high WBC 15.8 (H) 4.0 - 10.7 x10E9 /L 10/08 5:47 PM RN ER [facility] Not Available Not Available 10/10/2024 17:16:09 10/08/19 25 10/08/2024 CBC W Auto Diffe renti al panel - Blood erythrocytes [#/volume] in blood by automated count 4.12 text: 4.30 - 5.80 x10e12 /L low RBC Count 4.12 (L) 4.30 - 5.80 x10E1 2/L 10/08 5:47 PM RN ER [facility] Not Available Not Available 10/10/2024 17:16:09 10/08/1910/08/2024 CBC W Auto Diffe renti al panel - Blood hemoglobin [mass/volume ] in blood 12.8 g/dL low: 13.3g/ dLhigh : 17.5g/ dL low Hemog lobin 12.8 (L) 13.3 - 17.5 g/dL 10/08 5:47 PM RN ER [facility] Not Available Not Available 10/10/2024 17:16:09 10/08/1910/08/2024 CBC W Auto Diffe renti al panel - Blood hematocrit [volume fraction] of blood by automated count 37.6 % low: 38.7%h igh: 51.1% low Hemat ocrit 37.6 (L) 38.7 - 51.1 % 10/08 5:47 PM RN ER [facility] Not Available Not Available 10/10/2024 17:16:10/08/1910/08/2024 CBC W Auto Diffe renti al panel - Blood MCV [entitic volume] by automated count 91.3 fL low: 80fLhi gh: 98fL MCV 91.3 80.0 - 98.0 fL 10/08 5:47 PM RN ER [facility] Not Available Not Available 10/10/2024 17:16:09 10/08/19 25 10/08/2024 CBC W Auto Diffe renti al panel - Blood MCH [entitic mass] by automated count 31.1 pg low: 26.7pg high: 33.6pg MCH 31.1 26.7 - 33.6 pg 10/08 5:47 PM RN ER [facility] Not Available Not Available 10/10/2024 17:16:09 10/08/19 25 10/08/2024 CBC W Auto Diffe renti al panel - Blood MCHC [mass/volume ] by automated count 34 g/dL low: 31.7g/ dLhigh : 36.3g/ dL MCHC 34.0 31.7 - 36.3 g/dL 10/08 5:47 PM RN ER [facility] Not Available Not Available 10/10/2024 17:16:09 10/08/19 25 10/08/2024 CBC W Auto Diffe renti al panel - Blood erythrocyte distribution width [ratio] by automated count 13.6 % low: 11.3%h igh: 14.8% RDW-C V 13.6 11.3 - 14.8 % 10/08 5:47 PM RN ER [facility] Not Available Not Available 10/10/2024 17:16:09 10/08/1910/08/2024 CBC W Auto Diffe renti al panel - Blood platelets [#/volume] in blood by automated count 278 text: 150 - 420 x10e9/ L Plate let Count 278 150 - 420 x10E9 /L 10/08 5:47 PM RN ER [facility] Not Available Not Available 10/10/2024 17:16:09 10/08/1910/08/2024 CBC W Auto Diffe renti al panel - Blood platelet mean volume [entitic volume] in blood by automated count 10.4 fL low: 7.8fLh igh: 11.4fL MPV 10.4 7.8 - 11.4 fL 10/08 5:47 PM RN ER [facility] Not Available Not Available 10/10/2024 17:16:09 10/08/19 25 10/08/2024 CBC W Auto Diffe renti al panel - Blood neutrophils/ 100 leukocytes in blood by automated count 72.3 % low: 41%hig h: 74% Neutr ophil % 72.3 41.0 - 74.0 % 10/08 5:47 PM RN ER [facility] Not Available Not Available 10/10/2024 17:16:09 10/08/19 25 10/08/2024 CBC W Auto Diffe renti al panel - Blood lymphocytes/ 100 leukocytes in blood by automated count 16.4 % low: 17%hig h: 47% low Lymph ocyte % 16.4 (L) 17.0 - 47.0 % 10/08 5:47 PM RN ER [facility] Not Available Not Available 10/10/2024 17:16:09 10/08/19 25 10/08/2024 CBC W Auto Diffe renti al panel - Blood monocytes/10 0 leukocytes in blood by automated count 8.4 % low: 3%high : 11% Monoc yte % 8.4 3.0 - 11.0 % 10/08 5:47 PM RN ER [facility] Not Available Not Available 10/10/2024 17:16:09 10/08/19 25 10/08/2024 CBC W Auto Diffe renti al panel - Blood eosinophils/ 100 leukocytes in blood by automated count 2 % low: 0%high : 7% Eosin ophil % 2.0 0.0 - 7.0 % 10/08 5:47 PM RN ER [facility] Not Available Not Available 10/10/2024 17:16:09 10/08/19 25 10/08/2024 CBC W Auto Diffe renti al panel - Blood basophils/10 0 leukocytes in blood by automated count 0.5 % low: 0%high : 1.6% Basop hil % 0.5 0.0 - 1.6 % 10/08 5:47 PM RN ER [facility] Not Available Not Available 10/10/2024 17:16:09 10/08/19 25 10/08/2024 CBC W Auto Diffe renti al panel - Blood immature granulocytes /100 leukocytes in blood by automated count 0.4 % low: 0%high : 1% Immat ure Granu locyt es % 0.4 0.0 - 1.0 % 10/08 5:47 PM RN ER [facility] Not Available Not Available 10/10/2024 17:16:09 10/08/19 25 10/08/2024 CBC W Auto Diffe renti al panel - Blood neutrophils [#/volume] in blood by automated count 11.4 text: 1.60 - 7.50 x10e9/ L high Neutr ophil Absol [place] 11.40 (H) 1.60 - 7.50 x10E9 /L 10/08 5:47 PM RN ER [facility] Not Available Not Available 10/10/2024 17:16:09 10/08/19 25 10/08/2024 CBC W Auto Diffe renti al panel - Blood lymphocytes [#/volume] in blood by automated count 2.59 text: 1.00 - 4.40 x10e9/ L Lymph ocyte Absol [place] 2.59 1.00 - 4.40 x10E9 /L 10/08 5:47 PM RN ER [facility] Not Available Not Available 10/10/2024 17:16:09 10/08/19 25 10/08/2024 CBC W Auto Diffe renti al panel - Blood monocytes [#/volume] in blood by automated count 1.32 text: 0.15 - 1.00 x10e9/ L high Monoc yte Absol [place] 1.32 (H) 0.15 - 1.00 x10E9 /L 10/08 5:47 PM RN ER [facility] Not Available Not Available 10/10/2024 17:16:09 10/08/1910/08/2024 CBC W Auto Diffe renti al panel - Blood eosinophils [#/volume] in blood 0.32 text: 0.00 - 0.60 x10e9/ L Eosin ophil Absol [place] 0.32 0.00 - 0.60 x10E9 /L 10/08 5:47 PM RN ER [facility] Not Available Not Available 10/10/2024 17:16:09 10/08/1910/08/2024 CBC W Auto Diffe renti al panel - Blood basophils [#/volume] in blood by automated count 0.08 text: 0.00 - 0.13 x10e9/ L Basop hil Absol [place] 0.08 0.00 - 0.13 x10E9 /L 10/08 5:47 PM RN ER [facility] Not Available Not Available 10/10/2024 17:16:09 10/08/19 25 10/08/2024 CBC W Auto Diffe renti al panel - Blood interpretati on and review of laboratory results Abnorm al Not Available Not Available 17:16:09 10/08/19 25 10/08/2024 Basic metab olic 2000 panel - Serum or Plasm a urea nitrogen [mass/volume ] in serum or plasma 16 mg/dL low: 7mg/dL high: 26mg/d L BUN 16 7 - 26 mg/dL 10/08 6:08 PM [facility] Not Available Not Available 10/10/2024 17:16:09 10/08/1910/08/2024 Basic metab olic 1999 panel - Serum or Plasm a creatinine [mass/volume ] in serum or plasma 1.14 mg/dL low: 0.71mg /dLhig h: 1.16mg /dL Creat inine 1.14 0.71 - 1.16 mg/dL 10/08 6:08 PM [facility] Not Available Not Available 10/10/2024 17:16:09 10/08/1910/08/2024 Basic metab olic 1999 panel - Serum or Plasm a sodium [moles/volum e] in serum or plasma 138 mmol/ L low: 136mmo l/Lhig h: 145mmo l/L Sodiu m 138 136 - 145 mmol/ L 10/08 6:08 PM [facility] Not Available Not Available 10/10/2024 17:16:09 10/08/1910/08/2024 Basic metab olic 1999 panel - Serum or Plasm a potassium [moles/volum e] in serum or plasma 3.9 mmol/ L low: 3.5mmo l/Lhig h: 4.5mmo l/L Potas sium 3.9 3.5 - 4.5 mmol/ L 10/08 6:08 PM [facility] Not Available Not Available 10/10/2024 17:16:09 10/08/1910/08/2024 Basic metab olic 1999 panel - Serum or Plasm a chloride [moles/volum e] in serum or plasma 104 mmol/ L low: 98mmol /Lhigh : 107mmo l/L Chlor kwame 104 98 - 107 mmol/ L 10/08 6:08 PM [facility] Not Available Not Available 10/10/2024 17:16:09 10/08/19 25 10/08/2024 Basic metab olic 1999 panel - Serum or Plasm a carbon dioxide, total [moles/volum e] in serum or plasma 24 mmol/ L low: 22mmol /Lhigh : 29mmol /L CO2 24 22 - 29 mmol/ L 10/08 6:08 PM RN ER [facility] Not Available Not Available 10/10/2024 17:16:09 10/08/19 25 10/08/2024 Basic metab olic 2000 panel - Serum or Plasm a glucose [mass/volume ] in serum or plasma 104 mg/dL low: 70mg/d Lhigh: 99mg/d L high Gluco se 104 (H) 70 - 99 mg/dL 10/08 6:08 PM RN ER [facility] Not Available Not Available 10/10/2024 17:16:09 10/08/19 25 10/08/2024 Basic metab olic 1999 panel - Serum or Plasm a calcium [moles/volum e] in serum or plasma 8.9 mg/dL low: 8.4mg/ dLhigh : 10.2mg /dL Calci um 8.9 8.4 - 10.2 mg/dL 10/08 6:[address] [facility] Not Available Not Available 10/10/2024 17:16:09 10/08/19 25 10/08/2024 Basic metab olic 1999 panel - Serum or Plasm a anion gap 10 low: 6high: 16 Anion Gap 10 6 - 16 10/08 6:08 PM RN ER [facility] Not Available Not Available 10/10/2024 17:16:09 10/08/19 25 10/08/2024 Basic metab olic 1999 panel - Serum or Plasm a urea nitrogen/cre atinine [mass ratio] in serum or plasma 14 low: 7high: 23 BUN/C reati nine Ratio 14 7 - 23 10/08 6:08 PM RN ER [facility] Not Available Not Available 10/10/2024 17:16:09 10/08/19 25 10/08/2024 Basic metab olic 2000 panel - Serum or Plasm a osmolality calculated 287 text: 275 - 295 mOsm/k g Osmol ality Calcu lated 287 275 - 295 mOsm/ kg 10/08 6:08 PM RN ER [facility] Not Available Not Available 10/10/2024 17:16:09 10/08/1910/08/2024 Basic metab olic 2000 panel - Serum or Plasm a glomerular filtration rate/1.73 sq M.predicted [volume rate/area] in serum, plasma or blood by creatinine-b ased formula (CKD-epi 2020) 80 text: >=90 mL/min /1.73 m2 low eGFR by CKD-E PI 80 (L) >=90 mL/mi n/1.7 3 m2 10/08 6:08 PM RN ER [facility] Not Available Not Available 10/10/2024 17:16:09 10/08/1910/08/2024 Basic metab olic 1999 panel - Serum or Plasm a interpretati on and review of laboratory results Abnorm al Not Available Not Available 17:16:09 10/08/19 25 10/08/2024 Piyush ol [Mass /volu me] in Serum or Plasm a ethanol [mass/volume ] in serum or plasma high: 10mg/d L Piyush ol (mg/d L) <10 <10 mg/dL 10/08 6:08 PM RN ER [facility] Not Available Not Available 10/10/2024 17:16:09 10/08/1910/08/2024 Piyush ol [Mass /volu me] in Serum or Plasm a ethanol [mass/volume ] in blood high: 0.01g/ dL Piyush ol Calcu lated (g/dL ) <0.01 0 <=0.0 10 g/dL 10/08 6:08 PM RN ER [facility] Not Available Not Available 10/10/2024 17:16:09 10/08/1910/08/2024 Piyush ol [Mass /volu me] in Serum or Plasm a Unknown Analyte Ethano l Interp <10: None Detect ed. Depres emmett of ROPING TENDER: >100 mg/dl Potent ially Critic al: >250 mg/dl Potent ially Fatal >400 mg/dl Ethano l in the patien t's blood will contri bute to the osmola r gap. Ethano l's contri bution to the osmola r gap can be estima silvia by dividi ng the concen tratio n of ethano l in mg/dL by 4.6. This test is for clinic al use only and does not equal a RJ for legal purpos es. Piyush ol Inter p <10: None Detec silvia. Depre ssion of ROPING TENDER: >100 mg/dl Poten tiall y Criti rachael: >250 mg/dl Poten tiall y Fatal >400 mg/dl Piyush ol in the patie nt's blood will contr ibute to the osmol ar gap. Piyush ol's contr ibuti on to the osmol ar gap can be estim ated by divid ing the gris ntrat ion of piyush ol in mg/dL by 4.6. This test is for clini rachael use only and does not equal a RJ for legal purpo ses. Not Available Not Available 10/10/2024 17:16:09 10/08/19 25 10/08/2024 Piyush ol [Mass /volu me] in Serum or Plasm a interpretati on and review of laboratory results Normal Not Available Not Available 09/14 17:16:09 03/02/20 23 03/02/2023 XR, cervi rachael spine , 2 or 3 view No observ ation record ed. [address], [address], 03/05/2023 10:06:35 03/05/20 23 03/02/2023 XR, cervi rachael spine , 2 or 3 view No observ ation record ed. [address], [address], 03/05/2023 13:25:05 07/30/20 23 07/30/2023 XR, chest , 2 view No observ ation record ed. [address], [address], 07/31/2023 09:41:31 08/11/20 24 08/11/2024 XR, chest , 2 view No observ ation record ed. [address], [address], 08/11/2024 13:44:45 10/14/19 25 imagi ng/di agnos tic resul t No observ ation record ed. Not Available 2024 10:52:05 Result Notes None recorded. Problems Name Problem SNOMED Code Status Onset Date Resolution Date Notes Provider Name and Address Organization Details Recorded Time Chronic back pain 098113432 Active 2020 Not Available [facility] 4 22:38:43 Insomnia 896135076 Active 2021 Not Available [facility] 4 22:38:43 Colonosc opy declined 75006829879 9100 Active 2021 Not Available [facility] 4 22:38:43 Smoker 54334940 Active 2021 Not Available [facility] 4 22:38:43 Obesity 141985148 Active 2022 Not Available [facility] 4 22:38:43 Alcoholi sm 5623381 Completed 202211/13/2023 Removal Reason: in remissio n ROYA GARCIA Attn: Accounting ,[address] [facility], [place], [address] , [place] [facility] 4 15:30:10 Cervical radiculo mike 50356273 Active 2022 Not Available [facility] 4 22:38:43 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 ROYA GARCIA Attn: Accounting ,[address] [facility], [place], [address] , [place] [facility] 4 15:31:31 Chronic obstruct wesley pulmonar y disease 64887174 Active 2023 ROYA GARCIA Attn: Accounting ,[address] [facility], [place], [address] , [place] [facility] 4 12:40:00 Wheezing 53614552 Active 2024 ROYA GARCIA Attn: Accounting ,[address] [facility], [place], [address] , [place] [facility] 5 10:03:03 Swelling of bilatera l lower limbs 831646759 Active 2024 ROYA GARCIA Attn: Accounting ,[address] [facility], [place], [address] , [place] [facility] 5 10:03:05 [facility] hyperten emmett 70116210 Active 2016 Not Available [facility] 4 22:38:43 Mild persiste nt asthma 748859757 Active 2016 Not Available [facility] 4 22:38:43 Depressi ve disorder 09942001 Completed 201609/11/2019 ROYA GARCIA Attn: Accounting ,[address] [facility], [place], [address] , [place] [facility] 0 12:32:16 Problem Notes None recorded. Procedures Surgical History Date Name Laterality Status Provider Name and Address Organization Details Recorded Time 3 Back Surgery completed ROYA GARCIA Attn: Accounting,[address] [facility], [place], [address], [place] [facility] 06/30/2024 12:37:50 Imaging Results Imaging Date Name Status LastModified by [facility] Details LastModified Time 03/02/2023 XR, cervical spine, 2 or 3 view completed [address], [address], 03/05/2023 10:06:35 03/02/2023 XR, cervical spine, 2 or 3 view completed [address], [address], 03/05/2023 13:25:05 07/30/2023 XR, chest, 2 view completed [address], [address], 07/31/2023 09:41:31 08/11/2024 XR, chest, 2 view completed [address], [address], 08/11/2024 13:44:45 10/13/2024 imaging/diagn ostic result completed Information not available 10/13/2024 10:52:05 Procedure Notes None recorded. Medical Equipment None Reported. Allergies No known drug allergies Medications Name Sig Start Date Stop Date Status Note LastModified by Organization Details LastModified Time bupropion HCl SR 150 mg tablet,12 hr sustained- release Take 1 tablet twice a day by oral route for 30 days. 05/07 completed Not Available Not Available Not Available prednisone 10 mg tablet 10/03 completed Not Available Not Available Not Available doxycyclin e hyclate 100 mg capsule TAKE 1 CAPSULE BY MOUTH TWICE DAILY FOR 7 DAYS 11/12 completed Not Available Not Available Not Available nicotine 14 mg/24 hr daily transderma l patch Apply 1 patch every day by transder mal route for 14 days. 08/09 completed Not Available Not Available Not Available ipratropiu m 0.5 mg-albuter ol 3 mg (2.5 mg base)/3 mL nebulizati on soln USE 1 AMPULE IN NEBULIZE R 4 TIMES DAILY NEEDED active Not Available Not Available No t Available albuterol sulfate 2.5 mg/3 mL (0.083 %) solution for nebulizati on Inhale 3 mL every 4-6 hours by nebuliza tion route as needed. 08/01 completed Not Available Not Available Not Available cetirizine 10 mg tablet Take 1 tablet every day by oral route. 08/09 completed Not Available Not Available Not Available azithromyc in 250 mg tablet TAKE 2 TABLETS BY MOUTH ON DAY 1, AND THEN TAKE 1 TABLET BY MOUTH ONCE A DAY ON DAY 2 THROUGH DAY 5 10/13 completed Not Available Not Available Not Available ofloxacin 0.3 % eye drops INSTILL 1 DROP INTO EACH EYE 4 TIMES DAILY 05/14 completed Not Available Not Available Not Available clarithrom ycin 500 mg tablet 10/03 completed Not Available Not Available Not Available hydrocodon e 5 mg-acetami nophen 325 mg tablet Take 1 tablet every 8 hours by oral route as needed for 7 days, for severe pain. 2024 active Not Available Not Available Not Avai lable lisinopril 20 mg tablet TAKE 1 TABLET BY MOUTH ONCE DAILY active Not Available Not Available No t Available prednisone 20 mg tablet TAKE 2 TABLETS BY MOUTH ONCE DAILY FOR 5 DAYS 11/12 completed Not Available Not Available Not Available thiamine HCl (vitamin B1) 100 mg tablet Take 1 tablet every day by oral route for 90 days. 05/14 completed Not Available Not Available Not Available acetaminop hen 300 mg-codeine 30 mg tablet 10/03 completed Not Available Not Available Not Available amitriptyl ine 50 mg tablet TAKE 1 TABLET BY MOUTH EVERY DAY AT BEDTIME 08/01 completed Not Available Not Available Not Available prednisone 50 mg tablet TAKE 1 TABLET BY MOUTH ONCE DAILY 10/13 completed Not Available Not Available Not Available nicotine 21 mg/24 hr daily transderma l patch Apply 1 patch(es ) every day by transder mal route for 30 days. 08/09 completed Not Available Not Available Not Available gabapentin 300 mg capsule Take 1 capsule 3 times a day by oral route for 30 days. 08/01 completed Not Available Not Available Not Available sertraline 25 mg tablet Take 1 tablet every day by oral route at bedtime. 11/29 completed SEEING BLURBS Not Available Not Available Not Available folic acid 1 mg tablet TAKE 1 TABLET BY MOUTH ONCE DAILY active Not Available Not Available No t Available montelukas t 10 mg tablet TAKE 1 TABLET BY MOUTH ONCE DAILY AT BEDTIME 08/09 completed Not Available Not Available Not Available gabapentin 100 mg capsule TAKE 1 CAPSULE BY MOUTH THREE TIMES DAILY 02/05 completed Not Available Not Available Not Available lisinopril 10 mg-hydroch lorothiazi de 12.5 mg tablet TAKE 1 TABLET BY MOUTH ONCE DAILY active Not Available Not Available No t Available albuterol sulfate HFA 90 mcg/actuat ion aerosol inhaler INHALE 2 PUFFS BY MOUTH EVERY 4 TO 6 HOURS NEEDED active Not Available Not Available No t Available ketoconazo le 2 % topical cream APPLY CREAM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 fracture of nasal bone, Laceration of shins, Closed fracture of right zygomatic arch.Patient denies changes in vision, double vision, eye pain (endorses tenderness of bruised area around the eye), pain with eye movements, nausea/vomiting. CT facial bones wo contrast 10/08/24 reviewed: right medial orbital wall fracture with herniation of soft tissue. No radiographic evidence of EOM entrapment, as able to trace medial rectus muscle from insertion. Right ethmoid sinuses with blood products. Minimal periorbital emphysema. Globes round, symmetric, and formed. He is concerned for swelling and bruising today in thighs (He is wearing compression). He has stiches in b/l LE that dissolve. He has much pain. He has gone through his medication he was sent home and would like a few more days of hydrocodone. It really helps with my pain. He has taken tylenol. He denies double vision and was advised going back to ER if this happened. He is to see outpatient opthamology. ROYA GARCIA Attn: Accounting,[address], [place], [address], [facility] 10/16/2024 10:03:34
--- OUTSIDE RECORDS SUMMARY | 2024-10-20 17:12 | XMS_ITS | Clinical Summary ---
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 5:47 PM ELECTRICAL HELPER [facility] RBC Count 4.12(L) 4.30 - 5.80 x10E12/L 10/08/2024 5:47 PM [facility] Hemoglobin 12.8(L) 13.3 - 17.5 g/dL 10/08/2024 5:47 PM [facility] Hematocrit 37.6(L) 38.7 - 51.1 % 10/08/2024 5:47 PM [facility] MCV 91.3 80.0 - 98.0 fL 10/08/2024 5:47 PM [facility] MCH 31.1 26.7 - 33.6 pg 10/08/2024 5:47 PM [facility] MCHC 34.0 31.7 - 36.3 g/dL 10/08/2024 5:47 PM [facility] RDW-CV 13.6 11.3 - 14.8 % 10/08/2024 5:47 PM [facility] Platelet Count 278 150 - 420 x10E9/L 10/08/2024 5:47 PM [facility] MPV 10.4 7.8 - 11.4 fL 10/08/2024 5:47 PM [facility] Neutrophil % 72.3 41.0 - 74.0 % 10/08/2024 5:47 PM [facility] Lymphocyte % 16.4(L) 17.0 - 47.0 % 10/08/2024 5:47 PM [facility] Monocyte % 8.4 3.0 - 11.0 % 10/08/2024 5:47 PM [facility] Eosinophil % 2.0 0.0 - 7.0 % 10/08/2024 5:47 PM [facility] Basophil % 0.5 0.0 - 1.6 % 10/08/2024 5:47 PM [facility] Immature Granulocytes % 0.4 0.0 - 1.0 % 10/08/2024 5:47 PM [facility] Neutrophil Absolute 11.40(H) 1.60 - 7.50 x10E9/L 10/08/2024 5:47 PM [facility] Lymphocyte Absolute 2.59 1.00 - 4.40 x10E9/L 10/08/2024 5:47 PM [facility] Monocyte Absolute 1.32(H) 0.15 - 1.00 x10E9/L 10/08/2024 5:47 PM [facility] Eosinophil Absolute 0.32 0.00 - 0.60 x10E9/L 10/08/2024 5:47 PM [facility] Basophil Absolute 0.08 0.00 - 0.13 x10E9/L 10/08/2024 5:47 PM [facility] Blood BLOOD SPECIMEN / Unknown Venipuncture / Unknown 10/08/2024 5:27 PM ELECTRICAL HELPER 10/08/2024 5:39 PM ELECTRICAL HELPER Moncho Kramer MD LAB - HEMATOLOGY OR DERABLES [facility] [address] [place] [phone], [facility] [phone] * (ABNORMAL) BASIC METABOLIC PANEL (CALCIUM TOTAL) (10/08/2024 5:27 PM ELECTRICAL HELPER) BUN 16 7 - 26 mg/dL 10/08/2024 6:08 PM [facility] Creatinine 1.14 0.71 - 1.16 mg/dL 10/08/2024 6:08 PM [facility] Sodium 138 136 - 145 mmol/L 10/08/2024 6:08 PM [facility] Potassium 3.9 3.5 - 4.5 mmol/L 10/08/2024 6:08 PM [facility] Chloride 104 98 - 107 mmol/L 10/08/2024 6:08 PM [facility] CO2 24 22 - 29 mmol/L 10/08/2024 6:08 PM [facility] Glucose 104(H) 70 - 99 mg/dL 10/08/2024 6:08 PM [facility] Calcium 8.9 8.4 - 10.2 mg/dL 10/08/2024 6:08 PM [facility] Anion Gap 10 6 - 16 10/08/2024 6:08 PM [facility] BUN/Creatinine Ratio 14 7 - 23 10/08/2024 6:08 PM [facility] Osmolality Calculated 287 275 - 295 mOsm/kg 10/08/2024 6:08 PM [facility] eGFR by CKD-EPI 80(L) >=90 mL/min/1.7 3 m2 10/08/2024 6:08 PM [facility] Blood BLOOD SPECIMEN / Unknown Venipuncture / Unknown 10/08/2024 5:27 PM ELECTRICAL HELPER 10/08/2024 5:39 PM ELECTRICAL HELPER Moncho Kramer MD LAB - CHEMISTRY ORD ERABLES Performing Organization Address City/[facility]/ZIP Co de Phone Number [address] [address], [facility] [phone] * ALCOHOL ETHYL BLOOD (10/08/2024 5:27 PM ELECTRICAL HELPER) Ethanol (mg/dL) <10 <10 mg/dL 6:08 PM [facility] Ethanol Calculated (g/dL) <0.010 <=0.010 g/dL 10/08/2024 6:08 PM [facility] Blood BLOOD SPECIMEN / Unknown Venipuncture / Unknown 10/08/2024 5:27 PM ELECTRICAL HELPER 10/08/2024 5:39 PM ELECTRICAL HELPER Narrative [facility] - 10/08/2024 6:08 PM ELECTRICAL HELPER Ethanol Interp <10: None Detected. Depression of FUNERAL CAR CHAUFFEUR: >100 mg/dl Potentially Critical: >250 mg/dl Potentially [...] - CHEMISTRY ORD ERABLES Performing Organization Address [facility]/ZIP Co de Phone Number [address] [address], [facility] [phone] * XR CHEST 1VW PORTABLE (10/08/2024 5:15 PM ELECTRICAL HELPER) Anatomical Region Laterality Modality Chest Digital Radiogra phy 10/08/2024 5:26 PM ELECTRICAL HELPER Narrative 10/09/2024 8:02 AM ELECTRICAL HELPER PROCEDURE: XR CHEST 1VW PORTABLE, DATE/TIME OF EXAM: 10/08/2024 5:23 PM, LOCATION [facility] INDICATION: Trauma ADDITIONAL CLINICAL INFORMATION: Ordering Provider Reason For Exam: Technologist Note: Additional: COMPARISON: None. FINDINGS/IMPRESSION: No focal consolidation, pleural effusion, or pneumothorax. The cardiomediastinal silhouette is normal. No acute osseous abnormality. Degenerative changes of the thoracic spine. > Dictated by Caron Jimenes MD (residential program director) Maycol Levi MD have personally reviewed and interpreted this examination/study. > Interpreting Provider: Maycol Warren MD on 10/09/2024 8:02 AM Procedure Note Maycol Warren MD - 10/09/2024 PROCEDURE: XR CHEST 1VW PORTABLE, DATE/TIME OF EXAM: 10/08/2024 5:23PM, LOCATION [facility] INDICATION: Trauma ADDITIONAL CLINICAL INFORMATION: Ordering Provider Reason For Exam: Technologist Note: Additional: COMPARISON: None. FINDINGS/IMPRESSION: No focal consolidation, pleural effusion, or pneumothorax. The cardiomediastinal silhouette is normal. No acute osseousabnormality. Degenerative changes of the thoracic spine. > Dictated by Caron Jimenes MD (residential program director) Maycol Levi MD have personally reviewed and interpreted this examination/study. > Interpreting Provider: Maycol Warren MD on 10/09/2024 8:02 AM Moncho Kramer MD DIAGNOSTIC IMAGING ORDERABLES from Last 3 Months Care Teams Threat Analyst Relationship Specialty Start Date End Date Brianda Maciel PA-C [address] [place] [phone] PCP - General Physician Holiday Detector Operator 10/08/24
--- OUTSIDE RECORDS SUMMARY | 2024-10-20 17:12 | XMS_ITS | Encounter Summary ---
Author Organization [facility] Address [address] [place] [address] Care Team Providers Care Manager Filter Name Role Phone Brianda Maciel PA-C Primary Care Provider Encounter Details Date Type Department Care Team (Late Contact Info) Description 10/08/2024 Ophth Exam [facility] - Ophthalmology [address] [place] [phone] Cristobal Cheatham MD [address] [place] [address] Social History Tobacco Use Types Packs/Day Years Used Date Smoking Tobacco: Every Day Cigarettes Smokeless Tobacco: Never Alcohol Use Standard Drinks/Week Comments Yes 80 (1 standard drink = 0.6 oz pu re alcohol) Sex and Gender Information Value Date Recorded Sex Assigned at Not on file Gender Identity Not on file Sexual Orientation Not on file documented as of this encounter Plan of Treatment Upcoming Encounters Date Type Department Care Team (Late st Contact Info) Description 11/10/2024 1:00 PM CDT Office Visit [facility] - Dermatology [address] [phone] Eder Del Cid MD [address] [phone] documented as of this encounter Visit Diagnoses Not on filedocumented in this encounter Care Teams Manager Filter Relationship Specialty Start Date End Date Brianda Maciel PA-C [address] [place] [phone] PCP - General Physician Auditor Appraiser 10/08/24 documented as of this encounter
--- OUTSIDE RECORDS SUMMARY | 2024-10-20 18:12 | XMS_ITS | Clinical Summary ---
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 BASIC METABOLIC PANEL (CALCIUM TOTAL) (10/08/2024 5:27 PM TEACHERS' AIDE) BUN 16 7 - 26 mg/dL 10/08/2024 6:08 PM [facility] Creatinine 1.14 0.71 - 1.16 mg/dL 10/08/2024 6:08 PM [facility] Sodium 138 136 - 145 mmol/L 10/08/2024 6:08 PM [facility] Potassium 3.9 3.5 - 4.5 mmol/L 10/08/2024 6:08 PM [facility] Chloride 104 98 - 107 mmol/L 10/08/2024 6:08 PM [facility] CO2 24 22 - 29 mmol/L 10/08/2024 6:08 PM [facility] Glucose 104(H) 70 - 99 mg/dL 10/08/2024 6:08 PM [facility] Calcium 8.9 8.4 - 10.2 mg/dL 10/08/2024 6:08 PM [facility] Anion Gap 10 6 - 16 10/08/2024 6:08 PM [facility] BUN/Creatinine Ratio 14 7 - 23 10/08/2024 6:08 PM [facility] Osmolality Calculated 287 275 - 295 mOsm/kg 10/08/2024 6:08 PM [facility] eGFR by CKD-EPI 80(L) >=90 mL/min/1.7 3 m2 10/08/2024 6:08 PM [facility] Blood BLOOD SPECIMEN / Unknown Venipuncture / Unknown 10/08/2024 5:27 PM TEACHERS' AIDE 10/08/2024 5:39 PM TEACHERS' AIDE Moncho Kramer MD LAB - CHEMISTRY ORD ERABLES Performing Organization Address City/[facility]/ZIP Co de Phone Number [address] [phone], [facility] [phone] * ALCOHOL ETHYL BLOOD (10/08/2024 5:27 PM TEACHERS' AIDE) Ethanol (mg/dL) <10 <10 mg/dL 6:08 PM [facility] Ethanol Calculated (g/dL) <0.010 <=0.010 g/dL 10/08/2024 6:08 PM [facility] Blood BLOOD SPECIMEN / Unknown Venipuncture / Unknown 10/08/2024 5:27 PM TEACHERS' AIDE 10/08/2024 5:39 PM TEACHERS' AIDE Narrative [facility] - 10/08/2024 6:08 PM TEACHERS' AIDE Ethanol Interp <10: None Detected. Depression of MILL OPERATOR HELPER: >100 mg/dl Potentially Critical: >250 [...] - CHEMISTRY ORD ERABLES Performing Organization Address [facility]/ZIP Co de Phone Number [address] [phone], [facility] [phone] * XR CHEST 1VW PORTABLE (10/08/2024 5:15 PM TEACHERS' AIDE) Anatomical Region Laterality Modality Chest Digital Radiogra phy 10/08/2024 5:26 PM TEACHERS' AIDE Narrative 10/09/2024 8:02 AM TEACHERS' AIDE PROCEDURE: XR CHEST 1VW PORTABLE, DATE/TIME OF EXAM: 10/08/2024 5:23 PM, LOCATION [facility] INDICATION: Trauma ADDITIONAL CLINICAL INFORMATION: Ordering Provider Reason For Exam: Technologist Note: Additional: COMPARISON: None. FINDINGS/IMPRESSION: No focal consolidation, pleural effusion, or pneumothorax. The cardiomediastinal silhouette is normal. No acute osseous abnormality. Degenerative changes of the thoracic spine. > Dictated by Caron Jimenes MD (family medicine resident) Maycol Levi MD have personally reviewed and interpreted this examination/study. > Interpreting Provider: Maycol Warren MD on 10/09/2024 8:02 AM Procedure Note Maycol Warren MD - 10/09/2024 PROCEDURE: XR CHEST 1VW PORTABLE, DATE/TIME OF EXAM: 10/08/2024 5:23PM, LOCATION [facility] INDICATION: Trauma ADDITIONAL CLINICAL INFORMATION: Ordering Provider Reason For Exam: Technologist Note: Additional: COMPARISON: None. FINDINGS/IMPRESSION: No focal consolidation, pleural effusion, or pneumothorax. The cardiomediastinal silhouette is normal. No acute osseousabnormality. Degenerative changes of the thoracic spine. > Dictated by Caron Jimenes MD (family medicine resident) Maycol Levi MD have personally reviewed and interpreted this examination/study. > Interpreting Provider: Maycol Warren MD on 10/09/2024 8:02 AM Moncho Kramer MD DIAGNOSTIC IMAGING ORDERABLES from Last 3 Months Care Teams Optical Coating Technician Relationship Specialty Start Date End Date Brianda Maciel PA-C [address] [place] [phone] PCP - General Physician Seat Builder 10/08/24
--- OUTSIDE RECORDS SUMMARY | 2024-10-20 18:12 | XMS_ITS | Patient Health Summary ---
Author Organization [facility] [employer] Address [address] [place] [address] Care Team Providers Care Sales Rep Name Role Phone Brianda Maciel PA-C Primary Care Provider Note from [facility],non-owned Affiliates and Associated Physician Practices is amultiple site organization consisting of ambulatory clinics and hospital sitesin [place], [place], [place] and [place]. This disclosure is being madepursuant to the Care Everywhere program and may not contain all information available regarding this patient. Last updated 18.[facility] Allergies No known active allergies Medications * [...] Comments Blood Pressure 132/90 10/08/2024 11:00 PM [facility] Pulse 88 10/08/2024 11:00 PM [facility] Temperature 36.8 C (98.3 F) 10/08/2024 5:13 PM [facility] Respiratory Rate 24 10/08/2024 11:00 PM [facility] Oxygen Saturation 94% 10/08/2024 11:00 PM [facility] Inhaled Oxygen Concentration - - Weight - [...] Left 3Vw or More (10/08/2024 6:41 PM BEAM [facility]FFER) Anatomical Region Laterality Modality Wrist / Hand Digital Radiogra phy 10/08/2024 7:13 PM [facility] Impressions 10/09/2024 7:53 AM [facility] IMPRESSION: No acute fracture or dislocation identified. Report dictated by Caron Jimenes MD (resident caregiver). I, Issa Sheehan MD have personally reviewed and interpreted this examination/study. > Interpreting Provider: Issa Sheehan MD on 10/09/2024 7:53 AM Narrative 10/09/2024 7:53 AM [facility] PROCEDURE: XR WRIST LEFT 3VW OR MORE, DATE/TIME OF EXAM: 10/08/2024 6:41 PM, LOCATION [facility] INDICATION: T14.90XA: Trauma ADDITIONAL CLINICAL INFORMATION: [...] MORE, DATE/TIME OF EXAM: 56:41 PM, LOCATION [facility] INDICATION: T14.90XA: Trauma ADDITIONAL CLINICAL INFORMATION: Ordering Provider Reason For Exam: Technologist Note: Additional: COMPARISON: None. FINDINGS: The osseous structures are intact and well aligned without acutefracture or dislocation. The joint spaces are preserved. Bone density and texture are normal. Mild soft tissue swelling is present. IMPRESSION: No acute fracture or dislocation identified. Report dictated by Caron Jimenes MD (resident caregiver). Issa Levi MD have personally reviewed and interpreted this examination/study. > Interpreting Provider: Issa Sheehan MD on 10/09/2024 7:53 AM Moncho Kramer MD DIAGNOSTIC IMAGING ORDERABLES * XR Tibia Fibula Right 2Vw (10/08/2024 6:37 PM [facility]FFER) Anatomical Region Laterality Modality Lower Extremity Digital Radiogra phy 10/08/2024 7:12 PM [facility] Impressions 10/09/2024 7:55 AM [facility] IMPRESSION: No acute tibial or fibular fracture identified. Report dictated by Caron Jimenes MD (resident caregiver). Issa Levi MD have personally reviewed and interpreted this examination/study. > Interpreting Provider: Issa Sheehan MD on 10/09/2024 7:55 AM Narrative 10/09/2024 7:55 AM [facility] PROCEDURE: XR TIBIA FIBULA RIGHT 2VW, DATE/TIME OF EXAM: 10/08/2024 6:41 PM, LOCATION [facility] INDICATION: T14.90XA: Trauma ADDITIONAL CLINICAL INFORMATION: [...] 2VW, DATE/TIME OF EXAM: 56:41 PM, LOCATION [facility] INDICATION: T14.90XA: Trauma ADDITIONAL CLINICAL INFORMATION: [...] identified. Report dictated by Caron Jimenes MD (resident caregiver). Issa Levi MD have personally reviewed and interpreted this examination/study. > Interpreting Provider: Issa Sheehan MD on 10/09/2024 7:55 AM Moncho Kramer MD DIAGNOSTIC IMAGING ORDERABLES * XR Ankle Left 3Vw or More (10/08/2024 6:34 PM [facility]) Anatomical Region Laterality Modality Lower Extremity Digital Radiogra phy 10/08/2024 7:13 PM [facility] Impressions 10/09/2024 7:54 AM [facility] IMPRESSION: No acute fracture or dislocation identified. Report dictated by Caron Jimenes MD (resident caregiver). Issa Levi MD have personally reviewed and interpreted this examination/study. > Interpreting Provider: Issa Sheehan MD on 10/09/2024 7:54 AM Narrative 10/09/2024 7:54 AM [facility] PROCEDURE: XR ANKLE LEFT 3VW OR MORE, DATE/TIME OF EXAM: 10/08/2024 6:40 PM, LOCATION [facility] INDICATION: T14.90XA: Trauma ADDITIONAL CLINICAL INFORMATION: [...] MORE, DATE/TIME OF EXAM: 56:40 PM, LOCATION [facility] INDICATION: T14.90XA: Trauma ADDITIONAL CLINICAL INFORMATION: [...] identified. Report dictated by Caron Jimenes MD (resident caregiver). Issa Levi MD have personally reviewed and interpreted this examination/study. > Interpreting Provider: Issa Sheehan MD on 10/09/2024 7:54 AM Moncho Kramer MD DIAGNOSTIC IMAGING ORDERABLES * XR Tibia Fibula Left 2Vw (10/08/2024 6:30 PM [facility]FFER) Anatomical Region Laterality Modality Lower Extremity Digital Radiogra phy 10/08/2024 7:11 PM [facility] Impressions 10/09/2024 7:54 AM [facility] IMPRESSION: No acute tibial or fibular fracture identified. Report dictated by Caron Jimenes MD (resident caregiver). Issa Levi MD have personally reviewed and interpreted this examination/study. > Interpreting Provider: Issa Sheehan MD on 10/09/2024 7:54 AM Narrative 10/09/2024 7:54 AM [facility] PROCEDURE: XR TIBIA FIBULA LEFT 2VW, DATE/TIME OF EXAM: 10/08/2024 6:40 PM, LOCATION [facility] INDICATION: T14.90XA: Trauma ADDITIONAL CLINICAL INFORMATION: Ordering Provider Reason For Exam: Technologist Note: Additional: COMPARISON: None FINDINGS: The tibia and fibula are intact without evidence of acute fracture. Bone density and texture are normal. No soft tissue swelling is present. Procedure Note Issa Sheehan MD - 10/09/2024 PROCEDURE: XR TIBIA FIBULA LEFT 2VW, DATE/TIME OF EXAM: 10/08/2024 6:40 PM, LOCATION [facility] INDICATION: T14.90XA: Trauma ADDITIONAL CLINICAL INFORMATION: Ordering Provider Reason For Exam: Technologist Note: Additional: COMPARISON: None FINDINGS: The tibia and fibula are intact without evidence of acute fracture. Bone density and texture are normal. No soft tissue swelling is present. IMPRESSION: No acute tibial or fibular fracture identified. Report dictated by Caron Jimenes MD (resident caregiver). Issa Levi MD have personally reviewed and interpreted this examination/study. > Interpreting Provider: Issa Sheehan MD on 10/09/2024 7:54 AM Moncho Kramer MD DIAGNOSTIC IMAGING ORDERABLES * XR Knee Left 2Vw or Less (10/08/2024 6:26 PM [facility]FFER) Anatomical Region Laterality Modality Lower Extremity Digital Radiogra phy 10/08/2024 7:14 PM [facility] Impressions 10/09/2024 7:54 AM [facility] IMPRESSION: No acute fracture or dislocation identified. Report dictated by Caron Jimenes MD (resident caregiver). Issa Levi MD have personally reviewed and interpreted this examination/study. > Interpreting Provider: Issa Sheehan MD on 10/09/2024 7:54 AM Narrative 10/09/2024 7:54 AM [facility] PROCEDURE: XR KNEE LEFT 2VW OR LESS [...] identified. Report dictated by Caron Jimenes MD (resident caregiver). Issa Levi MD have personally reviewed and interpreted this examination/study. > Interpreting Provider: Issa Sheehan MD on 10/09/2024 7:54 AM Martin Bermeo MD DIAGNOSTIC IMAGING O RDERABLES * XR Femur Left 2Vw (10/08/2024 6:23 PM [facility]) Anatomical Region Laterality Modality Lower Extremity Digital Radiogra phy 10/08/2024 7:07 PM [facility] Impressions 10/09/2024 7:53 AM [facility] IMPRESSION: No acute femoral fracture identified. Report dictated by Caron Jimenes MD (resident caregiver). Issa Levi MD have personally reviewed and interpreted this examination/study. > Interpreting Provider: Issa Sheehan MD on 10/09/2024 7:53 AM Narrative 10/09/2024 7:53 AM [facility] PROCEDURE: XR FEMUR LEFT 2VW, DATE/TIME OF EXAM: 10/08/2024 6:38 PM, LOCATION [facility] INDICATION: T14.90XA: Trauma COMPARISON: None. FINDINGS: The femur is intact without acute fracture. The joint spaces are preserved. Bone density and texture are normal. Procedure Note Issa Sheehan MD - 10/09/2024 PROCEDURE: XR FEMUR LEFT 2VW, DATE/TIME OF EXAM: 10/08/2024 6:38 PM, LOCATION [facility] INDICATION: T14.90XA: Trauma COMPARISON: None. FINDINGS: The femur is intact without acute fracture. The joint spaces arepreserved. Bone density and texture are normal. IMPRESSION: No acute femoral fracture identified. Report dictated by Caron Jimenes MD (resident caregiver). Issa Levi MD have personally reviewed and interpreted this examination/study. > Interpreting Provider: Issa Sheehan MD on 10/09/2024 7:53 AM Moncho Kramer MD DIAGNOSTIC IMAGING ORDERABLES * CT CHEST ABDOMEN PELVIS W CONT - Abdomen-pelvis trauma, blunt or penetrating (10/08/2024 6:14 PM [facility]FFER) Anatomical Region Laterality Modality Chest, Abdomen, Pelvis Computed Tomography 10/08/2024 6:01 PM [facility] Impressions 10/08/2024 11:40 PM [facility] Impression: 1.Left upper anterior medial thigh hematoma. [...] 10/08/2024 11:40 PM Narrative 10/08/2024 11:40 PM [facility] Procedure Information DATE: 10/08/2024 5:21 PM EXAMINATION: [...] T/L-spine trauma, Spine fracture (10/08/2024 6:14 PM BEAM [facility]FFER) Anatomical Region Laterality Modality Spine Computed Tomogra phy 10/08/2024 6:23 PM [facility] Impressions 10/08/2024 7:23 PM [facility] IMPRESSION: 1.No evidence of acute fracture in the cervical, thoracic, or lumbar spine. 2.Please refer to the concurrent, dedicated body report for findings in the chest, abdomen, and pelvis. The report is dictated by Caron Jimenes MD (resident caregiver) Braden Levi MD have personally reviewed and interpreted this examination/study. > Interpreting Provider: Braden Garza MD on 10/08/2024 7:23 PM Narrative 10/08/2024 7:23 PM [facility] PROCEDURE: CT CERVICAL SPINE WO CONTRAST, CT THORACIC SPINE WO CONTRAST, CT LUMBAR SPINE WO CONTRAST, DATE/TIME OF EXAM: 10/08/2024 6:14 PM, LOCATION [facility] INDICATION: Trauma ADDITIONAL CLINICAL INFORMATION: Ordering [...] DATE/TIME OF EXAM: 10/08/2024 6:14 PM, LOCATION [facility] INDICATION: Trauma ADDITIONAL CLINICAL INFORMATION: Ordering [...] report is dictated by Caron Jimenes MD (resident caregiver) Braden Levi MD have personally reviewed and interpretedthis examination/study. > Interpreting Provider: Braden Garza MD on 10/08/2024 7:23 PM Moncho Kramer MD CT ORDERABLES * CT THORACIC SPINE WO CONTRAST - T/L-spine trauma, spine fracture (10/08/2024 6:14 PM BEAM [facility]FFER) Anatomical Region Laterality Modality Spine Computed Tomogra phy 10/08/2024 6:23 PM [facility] Impressions 10/08/2024 7:23 PM [facility] IMPRESSION: 1.No evidence of acute fracture in the cervical, thoracic, or lumbar spine. 2.Please refer to the concurrent, dedicated body report for findings in the chest, abdomen, and pelvis. The report is dictated by Caron Jimenes MD (resident caregiver) Braden Levi MD have personally reviewed and interpreted this examination/study. > Interpreting Provider: Braden Garza MD on 10/08/2024 7:23 PM Narrative 10/08/2024 7:23 PM [facility] PROCEDURE: CT CERVICAL SPINE WO CONTRAST, CT THORACIC SPINE WO CONTRAST, CT LUMBAR SPINE WO CONTRAST, DATE/TIME OF EXAM: 10/08/2024 6:14 PM, LOCATION [facility] INDICATION: Trauma ADDITIONAL CLINICAL INFORMATION: Ordering [...] DATE/TIME OF EXAM: 10/08/2024 6:14 PM, LOCATION [facility] INDICATION: Trauma ADDITIONAL CLINICAL INFORMATION: Ordering [...] report is dictated by Caron Jimenes MD (resident caregiver) Braden Levi MD have personally reviewed and interpretedthis examination/study. > Interpreting Provider: Braden Garza MD on 10/08/2024 7:23 PM Moncho Kramer MD CT ORDERABLES * CT CERVICAL SPINE WO CONTRAST - C-Spine Trauma, Spine fracture (10/08/2024 6:14 PM BEAM DOFFER) Anatomical Region Laterality Modality Spine Computed Tomogra phy 10/08/2024 6:23 PM [facility] Impressions 10/08/2024 7:23 PM [facility] IMPRESSION: 1.No evidence of acute fracture in the cervical, thoracic, or lumbar spine. 2.Please refer to the concurrent, dedicated body report for findings in the chest, abdomen, and pelvis. The report is dictated by Caron Jimenes MD (resident caregiver) Braden Levi MD have personally reviewed and interpreted this examination/study. > Interpreting Provider: Braden Garza MD on 10/08/2024 7:23 PM Narrative 10/08/2024 7:23 PM [facility] PROCEDURE: CT CERVICAL SPINE WO CONTRAST, CT THORACIC SPINE WO CONTRAST, CT LUMBAR SPINE WO CONTRAST, DATE/TIME OF EXAM: 10/08/2024 6:14 PM, LOCATION [facility] INDICATION: Trauma ADDITIONAL CLINICAL INFORMATION: Ordering [...] DATE/TIME OF EXAM: 10/08/2024 6:14 PM, LOCATION [facility] INDICATION: Trauma ADDITIONAL CLINICAL INFORMATION: Ordering [...] report is dictated by Caron Jimenes MD (resident caregiver) I, Braden Garza MD have personally reviewed and interpretedthis examination/study. > Interpreting Provider: Braden Garza MD on 10/08/2024 7:23 PM Moncho Kramer MD CT ORDERABLES * CT FACIAL BONES WO CONTRAST - Facial trauma, fx suspected, blunt (10/08/2024 6:14 PM BEAM DOFFER) Anatomical Region Laterality Modality Head Computed Tomogra phy 10/08/2024 5:38 PM [facility] Impressions 10/08/2024 7:08 PM [facility] IMPRESSION: 1.Acute nondisplaced fracture of the right [...] cells. Report dictated by Caron Jimenes MD (resident caregiver). Braden Levi MD have personally reviewed and interpreted this examination/study. > Interpreting Provider: Braden Garza MD on 10/08/2024 7:08 PM Narrative 10/08/2024 7:08 PM [facility] PROCEDURE: CT FACIAL BONES WO CONTRAST, DATE/TIME OF EXAM: 10/08/2024 6:14 PM, LOCATION [facility] INDICATION: Trauma EXAMINATION: 1Computed tomography (CT) [...] CONTRAST, DATE/TIME OF EXAM: :14 PM, LOCATION [facility] INDICATION: Trauma EXAMINATION: 1Computed tomography (CT) [...] cells. Report dictated by Caron Jimenes MD (resident caregiver). Braden Levi MD have personally reviewed and interpretedthis examination/study. > Interpreting Provider: Braden Garza MD on 10/08/2024 7:08 PM Moncho Kramer MD CT ORDERABLES * CT HEAD WO CONTRAST - Head Trauma, CSF leak, mental status changes (10/08/2024 6:14 PM BE[facility]FFER) Anatomical Region Laterality Modality Head Computed Tomogra phy 10/08/2024 5:56 PM [facility] Impressions 10/08/2024 5:59 PM [facility] IMPRESSION: 1.No acute intracranial hemorrhage, midline shift, or significant mass effect. 2.Medially displaced blowout fracture of the right lamina papyracea involving the right ethmoid septa. Mildly displaced fracture of the night nasal bone. Please see concurrently obtained CT facial bones for further evaluation. Report dictated by Caron Jimenes MD (resident caregiver). Callum Levi MD have personally reviewed and interpreted this examination/study. > Interpreting Provider: Callum Birmingham MD on 10/08/2024 5:59 PM Narrative 10/08/2024 5:59 PM [facility] PROCEDURE: CT FACIAL BONES WO CONTRAST, DATE/TIME OF EXAM: 10/08/2024 5:21 PM, LOCATION [facility] INDICATION: Trauma EXAMINATION: 1Computed tomography (CT) [...] CONTRAST, DATE/TIME OF EXAM: :21 PM, LOCATION [facility] INDICATION: Trauma EXAMINATION: 1Computed tomography (CT) [...] evaluation. Report dictated by Caron Jimenes MD (resident caregiver). Callum Levi MD have personally reviewed and interpreted this examination/study. > Interpreting Provider: Callum Birmingham MD on 10/08/2024 5:59 PM Moncho Kramer MD CT ORDERABLES * XR PELVIS 1 OR 2VW (10/08/2024 5:29 PM [facility]FFER) Anatomical Region Laterality Modality Pelvis Digital Radiogra phy 10/08/2024 5:28 PM [facility] Impressions 10/09/2024 8:03 AM [facility] IMPRESSION: No acute fracture identified. Report dictated by Caron Jimenes MD (resident caregiver). Maycol Levi MD have personally reviewed and interpreted this examination/study. > Interpreting Provider: Maycol Warren MD on 10/09/2024 8:03 AM Narrative 10/09/2024 8:03 AM [facility] PROCEDURE: XR PELVIS 1 OR 2VW, DATE/TIME OF EXAM: 10/08/2024 5:23 PM, LOCATION [facility] INDICATION: Trauma Fracture suspected ADDITIONAL CLINICAL [...] DATE/TIME OF EXAM: 10/08/2024 5:23 PM, LOCATION [facility] INDICATION: Trauma Fracture suspected ADDITIONAL CLINICAL [...] identified. Report dictated by Caron Jimenes MD (resident caregiver). I, Maycol Warren MD have personally reviewed and interpreted this examination/study. > Interpreting Provider: Maycol Warren MD on 10/09/2024 8:03 AM Moncho Kramer MD DIAGNOSTIC IMAGING ORDERABLES * (ABNORMAL) TEG 6 GLOBAL HEMOSTASIS W/ LYSIS (10/08/2024 5:27 PM BEAM [facility]FFER) Citrated Kaolin R (Reaction Time) 3.8(L) 4.6 - 9.1 min 10/08/2024 6:36 PM [facility] Comment:CK R result below no rmal range. Consistent with hypercoagulable clotting factors. Citrated Kaolin LY30 (Lysis) 1.3 0.0 - 2.6 % 10/08/2024 6:36 PM [facility] Citrated Functional Fibrinogen MA (Max Amplitude) 19.1 15.0 - 32.0 mm 10/08/2024 6:36 PM [facility] Citrated RapidTEG MA (Max Amplitude) 61.5 52.0 - 70.0 mm 10/08/2024 6:36 PM [facility] Blood BLOOD SPECIMEN / Unknown Venipuncture / Unknown 10/08/2024 5:27 PM [facility] 10/08/2024 5:40 PM [facility] Moncho Kramer MD LAB - HEMATOLOGY OR DERABLES [address] [address], [facility] [phone] * (ABNORMAL) TEG 6S PLATELET MAPPING (10/08/2024 5:27 PM BE[facility]FFER) TEGPLM (Max Amplitude) Koalin 61.6 53.0 - 68.0 mm 10/08/2024 6:08 PM [facility] TEGPLM (Max Amplitude) ACTF 6.6 2.0 - 19.0 mm 10/08/2024 6:08 PM [facility] TEGPLM (Max Amplitude) ADP 20.0(L) 45.0 - 69.0 mm 10/08/2024 6:08 PM [facility] Comment:ADP MA below normal range. Inhibition present. TEGPLM (Max Amplitude) AA 60.1 51.0 - 71.0 mm 10/08/2024 6:08 PM [facility] TEGPLM %Inhibition ADP 75.6(H) 0.0 - 17.0 % 10/08/2024 6:08 PM [facility] TEGPLM %Inhibition AA 2.7 0.0 - 11.0 % 10/08/2024 6:08 PM [facility] TEGPLM %Aggregation ADP 24.4(L) 83.0 - 100.0 % 10/08/2024 6:08 PM [facility] TEGPLM % Aggregation AA 97.3 89.0 - 100.0 % 10/08/2024 6:08 PM [facility] Blood BLOOD SPECIMEN / Unknown Venipuncture / Unknown 10/08/2024 5:27 PM [facility] 10/08/2024 5:40 PM [facility] Moncho Kramer MD LAB - HEMATOLOGY OR DERABLES Performing Organization Address [facility]/State/ZIP Co de Phone Number [facility] [address] [place] [address], [facility] [phone] * (ABNORMAL) PTT [facility] (10/08/2024 5:27 PM BE[facility]FFER) APTT 21.8(L) 23.0 - 38.4 Seconds 10/08/2024 6:04 PM [facility] Comment:Suggested therapeuti c range for full dose I.V. unfractionated heparin therapy for venous thromboembolism is 71 to 109 seconds. Blood BLOOD SPECIMEN / Unknown Venipuncture / Unknown 10/08/2024 5:27 PM [facility] 10/08/2024 5:36 PM [facility] Moncho Kramer MD LAB - COAGULATION O RDERABLES Performing Organization Address City/[facility]/ZIP Co de Phone Number [facility] [address] [place] [address], [facility] [phone] * PT-INR [facility] (10/08/2024 5:27 PM BEAM [facility]FFER) [facility] PT 12.6 12.1 - 14.8 Seconds 10/08/2024 6:04 PM [facility] INR 1.0 See Comment 10/08/2024 6:04 PM [facility] Comment:The suggested therap eutic range for standard coumadin (warfarin) therapy is an INR of 2.0-3.0. For high-risk patients (Mechanical Mitral Valve Prosthesis, etc.), the suggested prophylactic therapeutic range is an INR of 2.5-3.5. Blood BLOOD SPECIMEN / Unknown Venipuncture / Unknown 10/08/2024 5:27 PM [facility] 10/08/2024 5:36 PM [facility] Moncho Kramer MD LAB - COAGULATION O RDERABLES Performing Organization Address City/[facility]/ZIP Co de Phone Number [facility] [address] [place] [address], [facility] [phone] * TYPE + SCREEN PANEL (10/08/2024 5:27 PM BEAM [facility]FFER) [facility] Antibody Screen NEG 6:15 PM [facility] ABO Rh A POS 10/08/2024 6:15 PM [facility] Blood Bank BLOOD SPECIMEN / Unknown Venipuncture / Unknown 10/08/2024 5:27 PM [facility] 10/08/2024 5:37 PM [facility] Moncho Kramer MD LAB - BLOOD BANK OR DERABLES [facility] [address] [place] [address], [facility] [phone] * (ABNORMAL) CBC W AUTO DIFFERENTIAL (10/08/2024 5:27 PM [facility]FFER) WBC 15.8(H) 4.0 - 10.7 x10E9/L 10/08/2024 5:47 PM [facility] RBC Count 4.12(L) 4.30 - 5.80 x10E12/L 10/08/2024 5:47 PM [facility] Hemoglobin 12.8(L) 13.3 - 17.5 g/dL 10/08/2024 5:47 PM [facility] Hematocrit 37.6(L) 38.7 - 51.1 % 10/08/2024 5:47 PM [facility] MCV 91.3 80.0 - 98.0 fL 10/08/2024 5:47 PM [facility] MCH 31.1 26.7 - 33.6 pg 10/08/2024 5:47 PM [facility] MCHC 34.0 31.7 - 36.3 g/dL 10/08/2024 5:47 PM [facility] RDW-CV 13.6 11.3 - 14.8 % 10/08/2024 5:47 PM [facility] Platelet Count 278 150 - 420 x10E9/L 10/08/2024 5:47 PM [facility] MPV 10.4 7.8 - 11.4 fL 10/08/2024 5:47 PM [facility] Neutrophil % 72.3 41.0 - 74.0 % 10/08/2024 5:47 PM [facility] Lymphocyte % 16.4(L) 17.0 - 47.0 % 10/08/2024 5:47 PM [facility] Monocyte % 8.4 3.0 - 11.0 % 10/08/2024 5:47 PM [facility] Eosinophil % 2.0 0.0 - 7.0 % 10/08/2024 5:47 PM [facility] Basophil % 0.5 0.0 - 1.6 % 10/08/2024 5:47 PM [facility] Immature Granulocytes % 0.4 0.0 - 1.0 % 10/08/2024 5:47 PM [facility] Neutrophil Absolute 11.40(H) 1.60 - 7.50 x10E9/L 10/08/2024 5:47 PM [facility] Lymphocyte Absolute 2.59 1.00 - 4.40 x10E9/L 10/08/2024 5:47 PM [facility] Monocyte Absolute 1.32(H) 0.15 - 1.00 x10E9/L 10/08/2024 5:47 PM [facility] Eosinophil Absolute 0.32 0.00 - 0.60 x10E9/L 10/08/2024 5:47 PM [facility] Basophil Absolute 0.08 0.00 - 0.13 x10E9/L 10/08/2024 5:47 PM [facility] Blood BLOOD SPECIMEN / Unknown Venipuncture / Unknown 10/08/2024 5:27 PM [facility] 10/08/2024 5:39 PM [facility] Moncho Kramer MD LAB - HEMATOLOGY OR DERABLES Performing Organization Address [facility] Co de Phone Number [facility] [address] [place] [phone] [phone] * (ABNORMAL) BASIC METABOLIC PANEL (CALCIUM TOTAL) (10/08/2024 5:27 PM BEAM [facility]FFER) BUN 16 7 - 26 mg/dL 10/08/2024 6:08 PM [facility] Creatinine 1.14 0.71 - 1.16 mg/dL 10/08/2024 6:08 PM [facility] Sodium 138 136 - 145 mmol/L 10/08/2024 6:08 PM [facility] Potassium 3.9 3.5 - 4.5 mmol/L 10/08/2024 6:08 PM [facility] Chloride 104 98 - 107 mmol/L 10/08/2024 6:08 PM [facility] CO2 24 22 - 29 mmol/L 10/08/2024 6:08 PM [facility] Glucose 104(H) 70 - 99 mg/dL 10/08/2024 6:08 PM [facility] Calcium 8.9 8.4 - 10.2 mg/dL 10/08/2024 6:08 PM [facility] Anion Gap 10 6 - 16 10/08/2024 6:08 PM [facility] BUN/Creatinine Ratio 14 7 - 23 10/08/2024 6:08 PM [facility] Osmolality Calculated 287 275 - 295 mOsm/kg 10/08/2024 6:08 PM [facility] eGFR by CKD-EPI 80(L) >=90 mL/min/1.7 3 m2 10/08/2024 6:08 PM [facility] Blood BLOOD SPECIMEN / Unknown Venipuncture / Unknown 10/08/2024 5:27 PM [facility] 10/08/2024 5:39 PM [facility] Moncho Kramer MD LAB - CHEMISTRY ORD ERABLES Performing Organization Address City/[facility]/ZIP Co de Phone Number [address] [address], [place] [phone] * ALCOHOL ETHYL BLOOD (10/08/2024 5:27 PM [facility]FFER) Ethanol (mg/dL) <10 <10 mg/dL 6:08 PM [facility] Ethanol Calculated (g/dL) <0.010 <=0.010 g/dL 10/08/2024 6:08 PM [facility] Blood BLOOD SPECIMEN / Unknown Venipuncture / Unknown 10/08/2024 5:27 PM BEAM DOFFER 10/08/2024 5:39 PM BEAM DOFFER Narrative [facility] - 10/08/2024 6:08 PM BE[facility] DOFFER Ethanol Interp <10: None Detected. Depression of SEISMIC COMPUTER: >100 mg/dl Potentially Critical: >250 mg/dl Potentially [...] - CHEMISTRY ORD ERABLES Performing Organization Address City/[facility]/ZIP Co de Phone Number [address] [address], [place] [phone] * XR CHEST 1VW PORTABLE (10/08/2024 5:15 PM BEAM DOFFER) Anatomical Region Laterality Modality Chest Digital Radiogra phy 10/08/2024 5:26 PM BEAM DOFFER Narrative 10/09/2024 8:02 AM BEAM DOFFER PROCEDURE: XR CHEST 1VW PORTABLE, DATE/TIME OF EXAM: 10/08/2024 5:23 PM, LOCATION [facility] INDICATION: Trauma ADDITIONAL CLINICAL INFORMATION: Ordering Provider Reason For Exam: Technologist Note: Additional: COMPARISON: None. FINDINGS/IMPRESSION: No focal consolidation, pleural effusion, or pneumothorax. The cardiomediastinal silhouette is normal. No acute osseous abnormality. Degenerative changes of the thoracic spine. > Dictated by Caron Jimenes MD (resident caregiver) Maycol Levi MD have personally reviewed and interpreted this examination/study. > Interpreting Provider: Maycol Warren MD on 10/09/2024 8:02 AM Procedure Note Maycol Warren MD - 10/09/2024 PROCEDURE: XR CHEST 1VW PORTABLE, DATE/TIME OF EXAM: 10/08/2024 5:23PM, LOCATION [facility] INDICATION: Trauma ADDITIONAL CLINICAL INFORMATION: Ordering Provider Reason For Exam: Technologist Note: Additional: COMPARISON: None. FINDINGS/IMPRESSION: No focal consolidation, pleural effusion, or pneumothorax. The cardiomediastinal silhouette is normal. No acute osseousabnormality. Degenerative changes of the thoracic spine. > Dictated by Caron Jimenes MD (resident caregiver) Maycol Levi MD have personally reviewed and interpreted this examination/study. > Interpreting Provider: Maycol Warren MD on 10/09/2024 8:02 AM Moncho Kramer MD DIAGNOSTIC IMAGING ORDERABLES Care Teams Sales Rep Relationship Specialty Start Date End Date Brianda Maciel PA-C [address] [place] [phone] PCP - General Physician Chief Electrician 10/08/24
--- OUTSIDE RECORDS SUMMARY | 2024-10-20 18:12 | XMS_ITS | Clinical Summary ---
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 Name Role Phone Unavailable Primary Care Provider [...] Comments Blood Pressure 138/74 07/03/2016 4:04 PM FOOT SETTER Pulse 80 09/02/2013 11:37 AM FOOT SETTER Temperature - - Respiratory Rate - - Oxygen Saturation - - Inhaled Oxygen Concentration - - Weight 108.9 kg (240 lb) 07/03/2016 4:04 PM FOOT SETTER Height 185.4 cm (6' 1 ) 07/03/2016 4:04 PM FOOT SETTER Body Mass Index 31.66 07/03/2016 4:04 PM FOOT SETTER Plan of Treatment Health Maintenance Due Date [...] Documents on File Type Date Recorded 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
--- OUTSIDE RECORDS SUMMARY | 2024-10-20 18:12 | XMS_ITS | Referral Summary ---
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 CHEMISTRY ORD ERABLES [facility] [address] [place] [address], [facility] [phone] * ALCOHOL ETHYL BLOOD (10/08/2024 5:27 PM [facility]) Ethanol (mg/dL) <10 <10 mg/dL 6:08 PM [facility] Ethanol Calculated (g/dL) <0.010 <=0.010 g/dL 10/08/2024 6:08 PM [facility] Blood BLOOD SPECIMEN / Unknown Venipuncture / Unknown 10/08/2024 5:27 PM [facility] 10/08/2024 5:39 PM [facility] Narrative [facility] - 10/08/2024 6:08 PM [facility] Ethanol Interp <10: None Detected. Depression of MANNEQUIN MOLDER: >100 mg/dl Potentially Critical: >250 mg/dl Potentially [...] Kramer MD LAB - CHEMISTRY ORD ERABLES [address] [address], [facility] [phone] * XR CHEST 1VW PORTABLE (10/08/2024 5:15 PM [facility]) Anatomical Region Laterality Modality Chest Digital Radiogra phy 10/08/2024 5:26 PM [facility] Narrative 10/09/2024 8:02 AM [facility] PROCEDURE: XR CHEST 1VW PORTABLE, DATE/TIME OF EXAM: 10/08/2024 5:23 PM, LOCATION [facility] INDICATION: Trauma ADDITIONAL CLINICAL INFORMATION: Ordering Provider Reason For Exam: Technologist Note: Additional: COMPARISON: None. FINDINGS/IMPRESSION: No focal consolidation, pleural effusion, or pneumothorax. The cardiomediastinal silhouette is normal. No acute osseous abnormality. Degenerative changes of the thoracic spine. > Dictated by Caron Jimenes MD (resident buyer) Maycol Levi MD have personally reviewed and interpreted this examination/study. > Interpreting Provider: Maycol Warren MD on 10/09/2024 8:02 AM Procedure Note Maycol Warren MD - 10/09/2024 PROCEDURE: XR CHEST 1VW PORTABLE, DATE/TIME OF EXAM: 10/08/2024 5:23PM, LOCATION [facility] INDICATION: Trauma ADDITIONAL CLINICAL INFORMATION: Ordering Provider Reason For Exam: Technologist Note: Additional: COMPARISON: None. FINDINGS/IMPRESSION: No focal consolidation, pleural effusion, or pneumothorax. The cardiomediastinal silhouette is normal. No acute osseousabnormality. Degenerative changes of the thoracic spine. > Dictated by Caron Jimenes MD (resident buyer) Maycol Levi MD have personally reviewed and interpreted this examination/study. > Interpreting Provider: Maycol Warren MD on 10/09/2024 8:02 AM Moncho Kramer MD DIAGNOSTIC IMAGING ORDERABLES from Last 3 Months Care Teams Process Equipment Operator Relationship Specialty Start Date End Date Brianda Maciel PA-C [address] [place] [phone] PCP - General Physician Chronometer Tester 10/08/24
--- OUTSIDE RECORDS SUMMARY | 2024-10-20 18:12 | XMS_ITS | Encounter Summary ---
Author Organization [facility] Address [address] [place] [address] Care Team Providers Care Ethical Hacker Name Role Phone Brianda Maciel PA-C Primary Care Provider Encounter Details Date Type Department Care Team (Late Contact Info) Description 10/08/2024 Ophth Exam [facility] - Ophthalmology [address] [place] [phone] Cristobal Cheatham MD [address] [place] [address] Social History Tobacco Use Types Packs/Day Years [...] Visit [facility] - Dermatology [address] [phone] Eder Del Cid MD [address] [phone] documented as of this encounter Visit Diagnoses Not on filedocumented in this encounter Care Teams Ethical Hacker Relationship Specialty Start Date End Date Brianda Maciel PA-C [address] [place] [phone] PCP - General Physician Perioperative Assistant 10/08/24 documented as of this encounter
== END 2024-10-20 16:27 | disposition home or self-care (01) ==
PROVIDERS: Emergency Provider Emergency Medicine; PCP Physician Assistant
DX: S70.12XD Contusion of left thigh, subsequent encounter (principal); I10 Essential (primary) hypertension; J45.909 Unspecified asthma, uncomplicated; F17.210 Nicotine dependence, cigarettes, uncomplicated; Z79.899 Other long term (current) drug therapy; V89.2XXD Person injured in unspecified motor-vehicle accident, traffic, subsequent encounter
CPT/HCPCS: 99282

== ENCOUNTER 2024-10-27 09:00 | Outpatient (CLI) | payer MEDICAID, SELFPAY ==
--- NOTE | ~2024-10-27 | XR_ITS ---
Left wrist Technique: PA, oblique, lateral, and ulnar deviation views were obtained. Clinical History: Injury Findings: No acute fracture or dislocation is seen. Osseous alignment is anatomic. Joint spaces are p reserved. Soft tissues are unremarkable. Impression: Unremarkable left wrist radiographs. Reviewed, dictated and finalized at location . Impression: Unremarkable left wrist radiographs.
--- OUTSIDE RECORDS SUMMARY | 2024-10-27 09:42 | XMS_ITS | Encounter Summary ---
Author Organization [facility] Address [address] [place] [address] Care Team Providers Care Director Of Student Financial Aid Name Role Phone Brianda Maciel PA-C Primary Care Provider Encounter Details Date Type Department Care Team (Late Contact Info) Description 10/08/2024 Ophth Exam [facility] - Ophthalmology [address] [place] [phone] Cristobal Cheatham MD [address] [place] [address] Social History Tobacco Use Types Packs/Day Years [...] Visit [facility] - Dermatology [address] [phone] Eder Del Cid MD [address] [phone] documented as of this encounter Visit Diagnoses Not on filedocumented in this encounter Care Teams Director Of Student Financial Aid Relationship Specialty Start Date End Date Brianda Maciel PA-C [address] [place] [phone] PCP - General Physician Coal Feeder Operator 10/08/24 documented as of this encounter
--- OUTSIDE RECORDS SUMMARY | 2024-10-27 09:42 | XMS_ITS | Patient Health Summary ---
Author Organization [facility] [place] Address [address] [place] [address] Care Team Providers Care Wellfield Technician Name Role Phone Brianda Maciel PA-C Primary Care Provider Note from [facility],non-owned Affiliates and Associated Physician Practices is amultiple site organization consisting of ambulatory clinics and hospital sitesin [place], [place], [place] and [place]. This disclosure is being madepursuant to the Care Everywhere program and may not contain all information available regarding this patient. Last updated 18.[facility] Allergies No known active allergies Medications [...] Comments Blood Pressure 132/90 10/08/2024 11:00 PM WEIGHT REDUCTION SPECIALIST Pulse 88 10/08/2024 11:00 PM WEIGHT REDUCTION SPECIALIST Temperature 36.8 C (98.3 F) 10/08/2024 5:13 PM WEIGHT REDUCTION SPECIALIST Respiratory Rate 24 10/08/2024 11:00 PM WEIGHT REDUCTION SPECIALIST Oxygen Saturation 94% 10/08/2024 11:00 PM WEIGHT REDUCTION SPECIALIST Inhaled Oxygen Concentration - - Weight [...] Left 3Vw or More (10/08/2024 6:41 PM WEIGHT REDUCTION SPECIALIST) Anatomical Region Laterality Modality Wrist / Hand Digital Radiogra phy 10/08/2024 7:13 PM WEIGHT REDUCTION SPECIALIST Impressions 10/09/2024 7:53 AM WEIGHT REDUCTION SPECIALIST IMPRESSION: No acute fracture or dislocation identified. Report dictated by Caron Jimenes MD (residential mental health worker). I, Issa Sheehan MD have personally reviewed and interpreted this examination/study. > Interpreting Provider: Issa Sheehan MD on 10/09/2024 7:53 AM Narrative 10/09/2024 7:53 AM WEIGHT REDUCTION SPECIALIST PROCEDURE: XR WRIST LEFT 3VW OR MORE, DATE/TIME OF EXAM: 10/08/2024 6:41 PM, LOCATION [facility] INDICATION: T14.90XA: Trauma ADDITIONAL CLINICAL INFORMATION: [...] MORE, DATE/TIME OF EXAM: 56:41 PM, LOCATION [facility] INDICATION: T14.90XA: Trauma ADDITIONAL CLINICAL INFORMATION: Ordering Provider Reason For Exam: Technologist Note: Additional: COMPARISON: None. FINDINGS: The osseous structures are intact and well aligned without acutefracture or dislocation. The joint spaces are preserved. Bone density and texture are normal. Mild soft tissue swelling is present. IMPRESSION: No acute fracture or dislocation identified. Report dictated by Caron Jimenes MD (residential mental health worker). Issa Levi MD have personally reviewed and interpreted this examination/study. > Interpreting Provider: Issa Sheehan MD on 10/09/2024 7:53 AM Moncho Kramer MD DIAGNOSTIC IMAGING ORDERABLES * XR Tibia Fibula Right 2Vw (10/08/2024 6:37 PM WEIGHT REDUCTION SPECIALIST) Anatomical Region Laterality Modality Lower Extremity Digital Radiogra phy 10/08/2024 7:12 PM WEIGHT REDUCTION SPECIALIST Impressions 10/09/2024 7:55 AM WEIGHT REDUCTION SPECIALIST IMPRESSION: No acute tibial or fibular fracture identified. Report dictated by Caron Jimenes MD (residential mental health worker). Issa Levi MD have personally reviewed and interpreted this examination/study. > Interpreting Provider: Issa Sheehan MD on 10/09/2024 7:55 AM Narrative 10/09/2024 7:55 AM WEIGHT REDUCTION SPECIALIST PROCEDURE: XR TIBIA FIBULA RIGHT 2VW, DATE/TIME OF EXAM: 10/08/2024 6:41 PM, LOCATION [facility] INDICATION: T14.90XA: Trauma ADDITIONAL CLINICAL INFORMATION: [...] 2VW, DATE/TIME OF EXAM: 56:41 PM, LOCATION [facility] INDICATION: T14.90XA: Trauma ADDITIONAL CLINICAL INFORMATION: [...] Report dictated by Caron Jimenes MD (residential mental health worker). Issa Levi MD have personally reviewed and interpreted this examination/study. > Interpreting Provider: Issa Sheehan MD on 10/09/2024 7:55 AM Moncho Kramer MD DIAGNOSTIC IMAGING ORDERABLES * XR Ankle Left 3Vw or More (10/08/2024 6:34 PM WEIGHT REDUCTION SPECIALIST) Anatomical Region Laterality Modality Lower Extremity Digital Radiogra phy 10/08/2024 7:13 PM WEIGHT REDUCTION SPECIALIST Impressions 10/09/2024 7:54 AM WEIGHT REDUCTION SPECIALIST IMPRESSION: No acute fracture or dislocation identified. Report dictated by Caron Jimenes MD (residential mental health worker). Issa Levi MD have personally reviewed and interpreted this examination/study. > Interpreting Provider: Issa Sheehan MD on 10/09/2024 7:54 AM Narrative 10/09/2024 7:54 AM WEIGHT REDUCTION SPECIALIST PROCEDURE: XR ANKLE LEFT 3VW OR MORE, DATE/TIME OF EXAM: 10/08/2024 6:40 PM, LOCATION [facility] INDICATION: T14.90XA: Trauma ADDITIONAL CLINICAL INFORMATION: [...] MORE, DATE/TIME OF EXAM: 56:40 PM, LOCATION [facility] INDICATION: T14.90XA: Trauma ADDITIONAL CLINICAL INFORMATION: [...] Report dictated by Caron Jimenes MD (residential mental health worker). Issa Levi MD have personally reviewed and interpreted this examination/study. > Interpreting Provider: Issa Sheehan MD on 10/09/2024 7:54 AM Moncho Kramer MD DIAGNOSTIC IMAGING ORDERABLES * XR Tibia Fibula Left 2Vw (10/08/2024 6:30 PM WEIGHT REDUCTION SPECIALIST) Anatomical Region Laterality Modality Lower Extremity Digital Radiogra phy 10/08/2024 7:11 PM WEIGHT REDUCTION SPECIALIST Impressions 10/09/2024 7:54 AM WEIGHT REDUCTION SPECIALIST IMPRESSION: No acute tibial or fibular fracture identified. Report dictated by Caron Jimenes MD (residential mental health worker). Issa Levi MD have personally reviewed and interpreted this examination/study. > Interpreting Provider: Issa Sheehan MD on 10/09/2024 7:54 AM Narrative 10/09/2024 7:54 AM WEIGHT REDUCTION SPECIALIST PROCEDURE: XR TIBIA FIBULA LEFT 2VW, DATE/TIME OF EXAM: 10/08/2024 6:40 PM, LOCATION [facility] INDICATION: T14.90XA: Trauma ADDITIONAL CLINICAL INFORMATION: Ordering Provider Reason For Exam: Technologist Note: Additional: COMPARISON: None FINDINGS: The tibia and fibula are intact without evidence of acute fracture. Bone density and texture are normal. No soft tissue swelling is present. Procedure Note Issa Sheehan MD - 10/09/2024 PROCEDURE: XR TIBIA FIBULA LEFT 2VW, DATE/TIME OF EXAM: 10/08/2024 6:40 PM, LOCATION [facility] INDICATION: T14.90XA: Trauma ADDITIONAL CLINICAL INFORMATION: Ordering Provider Reason For Exam: Technologist Note: Additional: COMPARISON: None FINDINGS: The tibia and fibula are intact without evidence of acute fracture. Bone density and texture are normal. No soft tissue swelling is present. IMPRESSION: No acute tibial or fibular fracture identified. Report dictated by Caron Jimenes MD (residential mental health worker). Issa Levi MD have personally reviewed and interpreted this examination/study. > Interpreting Provider: Issa Sheehan MD on 10/09/2024 7:54 AM Moncho Kramer MD DIAGNOSTIC IMAGING ORDERABLES * XR Knee Left 2Vw or Less (10/08/2024 6:26 PM WEIGHT REDUCTION SPECIALIST) Anatomical Region Laterality Modality Lower Extremity Digital Radiogra phy 10/08/2024 7:14 PM WEIGHT REDUCTION SPECIALIST Impressions 10/09/2024 7:54 AM WEIGHT REDUCTION SPECIALIST IMPRESSION: No acute fracture or dislocation identified. Report dictated by Caron Jimenes MD (residential mental health worker). Issa Levi MD have personally reviewed and interpreted this examination/study. > Interpreting Provider: Issa Sheehan MD on 10/09/2024 7:54 AM Narrative 10/09/2024 7:54 AM WEIGHT REDUCTION SPECIALIST PROCEDURE: XR KNEE LEFT 2VW OR [...] Report dictated by Caron Jimenes MD (residential mental health worker). Issa Levi MD have personally reviewed and interpreted this examination/study. > Interpreting Provider: Issa Sheehan MD on 10/09/2024 7:54 AM Martin Bermeo MD DIAGNOSTIC IMAGING O RDERABLES * XR Femur Left 2Vw (10/08/2024 6:23 PM WEIGHT REDUCTION SPECIALIST) Anatomical Region Laterality Modality Lower Extremity Digital Radiogra phy 10/08/2024 7:07 PM WEIGHT REDUCTION SPECIALIST Impressions 10/09/2024 7:53 AM WEIGHT REDUCTION SPECIALIST IMPRESSION: No acute femoral fracture identified. Report dictated by Caron Jimenes MD (residential mental health worker). Issa Levi MD have personally reviewed and interpreted this examination/study. > Interpreting Provider: Issa Sheehan MD on 10/09/2024 7:53 AM Narrative 10/09/2024 7:53 AM WEIGHT REDUCTION SPECIALIST PROCEDURE: XR FEMUR LEFT 2VW, DATE/TIME OF EXAM: 10/08/2024 6:38 PM, LOCATION [facility] INDICATION: T14.90XA: Trauma COMPARISON: None. FINDINGS: The femur is intact without acute fracture. The joint spaces are preserved. Bone density and texture are normal. Procedure Note Issa Sheehan MD - 10/09/2024 PROCEDURE: XR FEMUR LEFT 2VW, DATE/TIME OF EXAM: 10/08/2024 6:38 PM, LOCATION [facility] INDICATION: T14.90XA: Trauma COMPARISON: None. FINDINGS: The femur is intact without acute fracture. The joint spaces arepreserved. Bone density and texture are normal. IMPRESSION: No acute femoral fracture identified. Report dictated by Caron Jimenes MD (residential mental health worker). Issa Levi MD have personally reviewed and interpreted this examination/study. > Interpreting Provider: Issa Sheehan MD on 10/09/2024 7:53 AM Moncho Kramer MD DIAGNOSTIC IMAGING ORDERABLES * CT CHEST ABDOMEN PELVIS W CONT - Abdomen-pelvis trauma, blunt or penetrating (10/08/2024 6:14 PM WEIGHT REDUCTION SPECIALIST) Anatomical Region Laterality Modality Chest, Abdomen, Pelvis Computed Tomography 10/08/2024 6:01 PM WEIGHT REDUCTION SPECIALIST Impressions 10/08/2024 11:40 PM WEIGHT REDUCTION SPECIALIST Impression: 1.Left upper anterior medial thigh [...] 10/08/2024 11:40 PM Narrative 10/08/2024 11:40 PM WEIGHT REDUCTION SPECIALIST Procedure Information DATE: 10/08/2024 5:21 PM [...] T/L-spine trauma, Spine fracture (10/08/2024 6:14 PM WEIGHT REDUCTION SPECIALIST) Anatomical Region Laterality Modality Spine Computed Tomogra phy 10/08/2024 6:23 PM WEIGHT REDUCTION SPECIALIST Impressions 10/08/2024 7:23 PM WEIGHT REDUCTION SPECIALIST IMPRESSION: 1.No evidence of acute fracture in the cervical, thoracic, or lumbar spine. 2.Please refer to the concurrent, dedicated body report for findings in the chest, abdomen, and pelvis. The report is dictated by Caron Jimenes MD (residential mental health worker) Braden Levi MD have personally reviewed and interpreted this examination/study. > Interpreting Provider: Braden Garza MD on 10/08/2024 7:23 PM Narrative 10/08/2024 7:23 PM WEIGHT REDUCTION SPECIALIST PROCEDURE: CT CERVICAL SPINE WO CONTRAST, CT THORACIC SPINE WO CONTRAST, CT LUMBAR SPINE WO CONTRAST, DATE/TIME OF EXAM: 10/08/2024 6:14 PM, LOCATION [facility] INDICATION: Trauma ADDITIONAL CLINICAL INFORMATION: Ordering [...] DATE/TIME OF EXAM: 10/08/2024 6:14 PM, LOCATION [facility] INDICATION: Trauma ADDITIONAL CLINICAL INFORMATION: Ordering [...] is dictated by Caron Jimenes MD (residential mental health worker) Braden Levi MD have personally reviewed and interpretedthis examination/study. > Interpreting Provider: Braden Garza MD on 10/08/2024 7:23 PM Moncho Kramer MD CT ORDERABLES * CT THORACIC SPINE WO CONTRAST - T/L-spine trauma, spine fracture (10/08/2024 6:14 PM WEIGHT REDUCTION SPECIALIST) Anatomical Region Laterality Modality Spine Computed Tomogra phy 10/08/2024 6:23 PM WEIGHT REDUCTION SPECIALIST Impressions 10/08/2024 7:23 PM WEIGHT REDUCTION SPECIALIST IMPRESSION: 1.No evidence of acute fracture in the cervical, thoracic, or lumbar spine. 2.Please refer to the concurrent, dedicated body report for findings in the chest, abdomen, and pelvis. The report is dictated by Caron Jimenes MD (residential mental health worker) Braden Levi MD have personally reviewed and interpreted this examination/study. > Interpreting Provider: Braden Garza MD on 10/08/2024 7:23 PM Narrative 10/08/2024 7:23 PM WEIGHT REDUCTION SPECIALIST PROCEDURE: CT CERVICAL SPINE WO CONTRAST, CT THORACIC SPINE WO CONTRAST, CT LUMBAR SPINE WO CONTRAST, DATE/TIME OF EXAM: 10/08/2024 6:14 PM, LOCATION [facility] INDICATION: Trauma ADDITIONAL CLINICAL INFORMATION: Ordering [...] DATE/TIME OF EXAM: 10/08/2024 6:14 PM, LOCATION [facility] INDICATION: Trauma ADDITIONAL CLINICAL INFORMATION: Ordering [...] is dictated by Caron Jimenes MD (residential mental health worker) Braden Levi MD have personally reviewed and interpretedthis examination/study. > Interpreting Provider: Braden Garza MD on 10/08/2024 7:23 PM Moncho Kramer MD CT ORDERABLES * CT CERVICAL SPINE WO CONTRAST - C-Spine Trauma, Spine fracture (10/08/2024 6:14 PM WEIGHT REDUCTION SPECIALIST) Anatomical Region Laterality Modality Spine Computed Tomogra phy 10/08/2024 6:23 PM WEIGHT REDUCTION SPECIALIST Impressions 10/08/2024 7:23 PM WEIGHT REDUCTION SPECIALIST IMPRESSION: 1.No evidence of acute fracture in the cervical, thoracic, or lumbar spine. 2.Please refer to the concurrent, dedicated body report for findings in the chest, abdomen, and pelvis. The report is dictated by Caron Jimenes MD (residential mental health worker) Braden Levi MD have personally reviewed and interpreted this examination/study. > Interpreting Provider: Braden Garza MD on 10/08/2024 7:23 PM Narrative 10/08/2024 7:23 PM WEIGHT REDUCTION SPECIALIST PROCEDURE: CT CERVICAL SPINE WO CONTRAST, CT THORACIC SPINE WO CONTRAST, CT LUMBAR SPINE WO CONTRAST, DATE/TIME OF EXAM: 10/08/2024 6:14 PM, LOCATION [facility] INDICATION: Trauma ADDITIONAL CLINICAL INFORMATION: Ordering [...] DATE/TIME OF EXAM: 10/08/2024 6:14 PM, LOCATION [facility] INDICATION: Trauma ADDITIONAL CLINICAL INFORMATION: Ordering [...] is dictated by Caron Jimenes MD (residential mental health worker) I, Braden Garza MD have personally reviewed and interpretedthis examination/study. > Interpreting Provider: Braden Garza MD on 10/08/2024 7:23 PM [address]cho Kramer MD CT ORDERABLES * CT FACIAL BONES WO CONTRAST - Facial trauma, fx suspected, blunt (10/08/2024 6:14 PM WEIGHT REDUCTION SPECIALIST) Anatomical Region Laterality Modality Head Computed Tomogra phy 10/08/2024 5:38 PM WEIGHT REDUCTION SPECIALIST Impressions 10/08/2024 7:08 PM WEIGHT REDUCTION SPECIALIST IMPRESSION: 1.Acute nondisplaced fracture of the [...] Report dictated by Caron Jimenes MD (residential mental health worker). Braden Levi MD have personally reviewed and interpreted this examination/study. > Interpreting Provider: Braden Garza MD on 10/08/2024 7:08 PM Narrative 10/08/2024 7:08 PM WEIGHT REDUCTION SPECIALIST PROCEDURE: CT FACIAL BONES WO CONTRAST, DATE/TIME OF EXAM: 10/08/2024 6:14 PM, LOCATION [facility] INDICATION: Trauma EXAMINATION: 1Computed tomography (CT) [...] CONTRAST, DATE/TIME OF EXAM: :14 PM, LOCATION [facility] INDICATION: Trauma EXAMINATION: 1Computed tomography (CT) [...] Report dictated by Caron Jimenes MD (residential mental health worker). Braden Levi MD have personally reviewed and interpretedthis examination/study. > Interpreting Provider: Braden Garza MD on 10/08/2024 7:08 PM Moncho Kramer MD CT ORDERABLES * CT HEAD WO CONTRAST - Head Trauma, CSF leak, mental status changes (10/08/2024 6:14 PM WEIGHT REDUCTION SPECIALIST) Anatomical Region Laterality Modality Head Computed Tomogra phy 10/08/2024 5:56 PM WEIGHT REDUCTION SPECIALIST Impressions 10/08/2024 5:59 PM WEIGHT REDUCTION SPECIALIST IMPRESSION: 1.No acute intracranial hemorrhage, midline shift, or significant mass effect. 2.Medially displaced blowout fracture of the right lamina papyracea involving the right ethmoid septa. Mildly displaced fracture of the night nasal bone. Please see concurrently obtained CT facial bones for further evaluation. Report dictated by Caron Jimenes MD (residential mental health worker). Callum Levi MD have personally reviewed and interpreted this examination/study. > Interpreting Provider: Callum Brimingham MD on 10/08/2024 5:59 PM Narrative 10/08/2024 5:59 PM WEIGHT REDUCTION SPECIALIST PROCEDURE: CT FACIAL BONES WO CONTRAST, DATE/TIME OF EXAM: 10/08/2024 5:21 PM, LOCATION [facility] INDICATION: Trauma EXAMINATION: 1Computed tomography (CT) [...] CONTRAST, DATE/TIME OF EXAM: :21 PM, LOCATION [facility] INDICATION: Trauma EXAMINATION: 1Computed tomography (CT) [...] Report dictated by Caron Jimenes MD (residential mental health worker). Callum Levi MD have personally reviewed and interpreted this examination/study. > Interpreting Provider: Callum Birmingham MD on 10/08/2024 5:59 PM Moncho Kramer MD CT ORDERABLES * XR PELVIS 1 OR 2VW (10/08/2024 5:29 PM WEIGHT REDUCTION SPECIALIST) Anatomical Region Laterality Modality Pelvis Digital Radiogra phy 10/08/2024 5:28 PM WEIGHT REDUCTION SPECIALIST Impressions 10/09/2024 8:03 AM WEIGHT REDUCTION SPECIALIST IMPRESSION: No acute fracture identified. Report dictated by Caron Jimenes MD (residential mental health worker). Maycol Levi MD have personally reviewed and interpreted this examination/study. > Interpreting Provider: Maycol Warren MD on 10/09/2024 8:03 AM Narrative 10/09/2024 8:03 AM WEIGHT REDUCTION SPECIALIST PROCEDURE: XR PELVIS 1 OR 2VW, DATE/TIME OF EXAM: 10/08/2024 5:23 PM, LOCATION [facility] INDICATION: Trauma Fracture suspected ADDITIONAL CLINICAL [...] DATE/TIME OF EXAM: 10/08/2024 5:23 PM, LOCATION [facility] INDICATION: Trauma Fracture suspected ADDITIONAL CLINICAL [...] Report dictated by Caron Jimenes MD (residential mental health worker). I, Maycol Warren MD have personally reviewed and interpreted this examination/study. > Interpreting Provider: Maycol Warren MD on 10/09/2024 8:03 AM Moncho Kramer MD DIAGNOSTIC IMAGING ORDERABLES * (ABNORMAL) TEG 6 GLOBAL HEMOSTASIS W/ LYSIS (10/08/2024 5:27 PM WEIGHT REDUCTION SPECIALIST) Citrated Kaolin R (Reaction Time) 3.8(L) 4.6 - 9.1 min 10/08/2024 6:36 PM WEIGHT REDUCTION SPECIALIST [facility] Comment:CK R result below no rmal range. Consistent with hypercoagulable clotting factors. Citrated Kaolin LY30 (Lysis) 1.3 0.0 - 2.6 % 10/08/2024 6:36 [address] WEIGHT REDUCTION SPECIALIST [facility] Citrated Functional Fibrinogen MA (Max Amplitude) 19.1 15.0 - 32.0 mm 10/08/2024 6:36 PM [facility] Citrated RapidTEG MA (Max Amplitude) 61.5 52.0 - 70.0 mm 10/08/2024 6:36 [address] WEIGHT REDUCTION SPECIALIST [facility] Blood BLOOD SPECIMEN / Unknown Venipuncture / Unknown 10/08/2024 5:27 PM WEIGHT REDUCTION SPECIALIST 10/08/2024 5:40 PM WEIGHT REDUCTION SPECIALIST Moncho Kramer MD LAB - HEMATOLOGY OR DERABLES [address] [address], [facility] [phone] * (ABNORMAL) TEG 6S PLATELET MAPPING (10/08/2024 5:27 PM WEIGHT REDUCTION SPECIALIST) TEGPLM (Max Amplitude) Koalin 61.6 53.0 - 68.0 mm 10/08/2024 6:08 PM [facility] TEGPLM (Max Amplitude) ACTF 6.6 2.0 - 19.0 mm 10/08/2024 6:08 PM [facility] TEGPLM (Max Amplitude) ADP 20.0(L) 45.0 - 69.0 mm 10/08/2024 6:08 PM [facility] Comment:ADP MA below normal range. Inhibition present. TEGPLM (Max Amplitude) AA 60.1 51.0 - 71.0 mm 10/08/2024 6:08 PM [facility] TEGPLM %Inhibition ADP 75.6(H) 0.0 - 17.0 % 10/08/2024 6:08 PM [facility] TEGPLM %Inhibition AA 2.7 0.0 - 11.0 % 10/08/2024 6:08 PM [facility] TEGPLM %Aggregation ADP 24.4(L) 83.0 - 100.0 % 10/08/2024 6:08 PM [facility] TEGPLM % Aggregation AA 97.3 89.0 - 100.0 % 10/08/2024 6:08 PM [facility] Blood BLOOD SPECIMEN / Unknown Venipuncture / Unknown 10/08/2024 5:27 PM WEIGHT REDUCTION SPECIALIST 10/08/2024 5:40 PM WEIGHT REDUCTION SPECIALIST Moncho Kramer MD LAB - HEMATOLOGY OR DERABLES Performing Organization Address [facility]/State/ZIP Co de Phone Number [facility] [address] [place] [address], [facility] [phone] * (ABNORMAL) PTT [facility] (10/08/2024 5:27 PM WEIGHT REDUCTION SPECIALIST) APTT 21.8(L) 23.0 - 38.4 Seconds 10/08/2024 6:04 PM [facility] Comment:Suggested therapeuti c range for full dose I.V. unfractionated heparin therapy for venous thromboembolism is 71 to 109 seconds. Blood BLOOD SPECIMEN / Unknown Venipuncture / Unknown 10/08/2024 5:27 PM WEIGHT REDUCTION SPECIALIST 10/08/2024 5:36 PM WEIGHT REDUCTION SPECIALIST Moncho Kramer MD LAB - COAGULATION O RDERABLES Performing Organization Address City/[facility]/ZIP Co de Phone Number [facility] [address] [place] [address], [facility] [phone] * PT-INR [facility] (10/08/2024 5:27 PM WEIGHT REDUCTION SPECIALIST) [facility] PT 12.6 12.1 - 14.8 Seconds 10/08/2024 6:04 PM [facility] INR 1.0 See Comment 10/08/2024 6:04 PM [facility] Comment:The suggested therap eutic range for standard coumadin (warfarin) therapy is an INR of 2.0-3.0. For high-risk patients (Mechanical Mitral Valve Prosthesis, etc.), the suggested prophylactic therapeutic range is an INR of 2.5-3.5. Blood BLOOD SPECIMEN / Unknown Venipuncture / Unknown 10/08/2024 5:27 PM WEIGHT REDUCTION SPECIALIST 10/08/2024 5:36 PM WEIGHT REDUCTION SPECIALIST Moncho Kramer MD LAB - COAGULATION O RDERABLES Performing Organization Address City/[facility]/ZIP Co de Phone Number [facility] [address] [place] [address], [facility] [phone] * TYPE + SCREEN PANEL (10/08/2024 5:27 PM WEIGHT REDUCTION SPECIALIST) [facility] Antibody Screen NEG 6:15 PM WEIGHT REDUCTION SPECIALIST [facility] ABO Rh A POS 10/08/2024 6:15 PM WEIGHT REDUCTION SPECIALIST [facility] Blood Bank BLOOD SPECIMEN / Unknown Venipuncture / Unknown 10/08/2024 5:27 PM WEIGHT REDUCTION SPECIALIST 10/08/2024 5:37 PM WEIGHT REDUCTION SPECIALIST Moncho Kramer MD LAB - BLOOD BANK OR DERABLES [facility] [address] [place] [address], [facility] [phone] * (ABNORMAL) CBC W AUTO DIFFERENTIAL (10/08/2024 5:27 PM WEIGHT REDUCTION SPECIALIST) WBC 15.8(H) 4.0 - 10.7 x10E9/L 10/08/2024 5:47 PM [facility] RBC Count 4.12(L) 4.30 - 5.80 x10E12/L 10/08/2024 5:47 PM [facility] Hemoglobin 12.8(L) 13.3 - 17.5 g/dL 10/08/2024 5:47 PM [facility] Hematocrit 37.6(L) 38.7 - 51.1 % 10/08/2024 5:47 PM [facility] MCV 91.3 80.0 - 98.0 fL 10/08/2024 5:47 PM [facility] MCH 31.1 26.7 - 33.6 pg 10/08/2024 5:47 PM [facility] MCHC 34.0 31.7 - 36.3 g/dL 10/08/2024 5:47 PM [facility] RDW-CV 13.6 11.3 - 14.8 % 10/08/2024 5:47 PM [facility] Platelet Count 278 150 - 420 x10E9/L 10/08/2024 5:47 PM [facility] MPV 10.4 7.8 - 11.4 fL 10/08/2024 5:47 PM [facility] Neutrophil % 72.3 41.0 - 74.0 % 10/08/2024 5:47 PM [facility] Lymphocyte % 16.4(L) 17.0 - 47.0 % 10/08/2024 5:47 PM [facility] Monocyte % 8.4 3.0 - 11.0 % 10/08/2024 5:47 PM [facility] Eosinophil % 2.0 0.0 - 7.0 % 10/08/2024 5:47 PM [facility] Basophil % 0.5 0.0 - 1.6 % 10/08/2024 5:47 PM [facility] Immature Granulocytes % 0.4 0.0 - 1.0 % 10/08/2024 5:47 PM [facility] Neutrophil Absolute 11.40(H) 1.60 - 7.50 x10E9/L 10/08/2024 5:47 PM [facility] Lymphocyte Absolute 2.59 1.00 - 4.40 x10E9/L 10/08/2024 5:47 PM [facility] Monocyte Absolute 1.32(H) 0.15 - 1.00 x10E9/L 10/08/2024 5:47 PM [facility] Eosinophil Absolute 0.32 0.00 - 0.60 x10E9/L 10/08/2024 5:47 PM [facility] Basophil Absolute 0.08 0.00 - 0.13 x10E9/L 10/08/2024 5:47 PM [facility] Blood BLOOD SPECIMEN / Unknown Venipuncture / Unknown 10/08/2024 5:27 PM WEIGHT REDUCTION SPECIALIST 10/08/2024 5:39 PM WEIGHT REDUCTION SPECIALIST Moncho Kramer MD LAB - HEMATOLOGY OR DERABLES Performing Organization Address [facility] Co de Phone Number [facility] [address] [place] [id number] [phone] * (ABNORMAL) BASIC METABOLIC PANEL (CALCIUM TOTAL) (10/08/2024 5:27 PM WEIGHT REDUCTION SPECIALIST) BUN 16 7 - 26 mg/dL 10/08/2024 6:08 PM [facility] Creatinine 1.14 0.71 - 1.16 mg/dL 10/08/2024 6:08 PM [facility] Sodium 138 136 - 145 mmol/L 10/08/2024 6:08 PM [facility] Potassium 3.9 3.5 - 4.5 mmol/L 10/08/2024 6:08 PM [facility] Chloride 104 98 - 107 mmol/L 10/08/2024 6:08 PM [facility] CO2 24 22 - 29 mmol/L 10/08/2024 6:08 PM [facility] Glucose 104(H) 70 - 99 mg/dL 10/08/2024 6:08 PM [facility] Calcium 8.9 8.4 - 10.2 mg/dL 10/08/2024 6:08 PM [facility] Anion Gap 10 6 - 16 10/08/2024 6:08 PM [facility] BUN/Creatinine Ratio 14 7 - 23 10/08/2024 6:08 PM [facility] Osmolality Calculated 287 275 - 295 mOsm/kg 10/08/2024 6:08 PM [facility] eGFR by CKD-EPI 80(L) >=90 mL/min/1.7 3 m2 10/08/2024 6:08 PM [facility] Blood BLOOD SPECIMEN / Unknown Venipuncture / Unknown 10/08/2024 5:27 PM WE[employer] REDUCTION SPECIALIST 10/08/2024 5:39 PM WEIGHT REDUCTION SPECIALIST Moncho Kramer MD LAB - CHEMISTRY ORD ERABLES Performing Organization Address City/[facility]/ZIP Co de Phone Number [address] [address], [place] [phone] * ALCOHOL ETHYL BLOOD (10/08/2024 5:27 PM WEIGHT REDUCTION SPECIALIST) Ethanol (mg/dL) <10 <10 mg/dL 6:08 PM [facility] Ethanol Calculated (g/dL) <0.010 <=0.010 g/dL 10/08/2024 6:08 PM [facility] Blood BLOOD SPECIMEN / Unknown Venipuncture / Unknown 10/08/2024 5:27 PM WEIGHT REDUCTION SPECIALIST 10/08/2024 5:39 PM WEIGHT REDUCTION SPECIALIST Narrative [facility] - 10/08/2024 6:08 PM WEIGHT REDUCTION SPECIALIST Ethanol Interp <10: None Detected. Depression of MOLDER PUNCH: >100 mg/dl Potentially Critical: >250 mg/dl Potentially [...] - CHEMISTRY ORD ERABLES Performing Organization Address City/[facility]/ZIP Co de Phone Number [address] [address], [place] [phone] * XR CHEST 1VW PORTABLE (10/08/2024 5:15 PM WEIGHT REDUCTION SPECIALIST) Anatomical Region Laterality Modality Chest Digital Radiogra phy 10/08/2024 5:26 PM WEIGHT REDUCTION SPECIALIST Narrative 10/09/2024 8:02 AM WEIGHT REDUCTION SPECIALIST PROCEDURE: XR CHEST 1VW PORTABLE, DATE/TIME OF EXAM: 10/08/2024 5:23 PM, LOCATION [facility] INDICATION: Trauma ADDITIONAL CLINICAL INFORMATION: Ordering Provider Reason For Exam: Technologist Note: Additional: COMPARISON: None. FINDINGS/IMPRESSION: No focal consolidation, pleural effusion, or pneumothorax. The cardiomediastinal silhouette is normal. No acute osseous abnormality. Degenerative changes of the thoracic spine. > Dictated by Caron Jimenes MD (residential mental health worker) Maycol Levi MD have personally reviewed and interpreted this examination/study. > Interpreting Provider: Maycol Warren MD on 10/09/2024 8:02 AM Procedure Note Maycol Warren MD - 10/09/2024 PROCEDURE: XR CHEST 1VW PORTABLE, DATE/TIME OF EXAM: 10/08/2024 5:23PM, LOCATION [facility] INDICATION: Trauma ADDITIONAL CLINICAL INFORMATION: Ordering Provider Reason For Exam: Technologist Note: Additional: COMPARISON: None. FINDINGS/IMPRESSION: No focal consolidation, pleural effusion, or pneumothorax. The cardiomediastinal silhouette is normal. No acute osseousabnormality. Degenerative changes of the thoracic spine. > Dictated by Caron Jimenes MD (residential mental health worker) Maycol Levi MD have personally reviewed and interpreted this examination/study. > Interpreting Provider: Maycol Warren MD on 10/09/2024 8:02 AM Moncho Kramer MD DIAGNOSTIC IMAGING ORDERABLES Care Teams Wellfield Technician Relationship Specialty Start Date End Date Brianda Maciel PA-C [address] [place] [phone] PCP - General Physician Facility Examiner 10/08/24
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
--- OUTSIDE RECORDS SUMMARY | 2024-10-27 09:42 | XMS_ITS | Clinical Summary ---
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 5:47 PM [facility] Monocyte % 8.4 3.0 - 11.0 % 10/08/2024 5:47 PM [facility] Eosinophil % 2.0 0.0 - 7.0 % 10/08/2024 5:47 PM [facility] Basophil % 0.5 0.0 - 1.6 % 10/08/2024 5:47 PM [facility] Immature Granulocytes % 0.4 0.0 - 1.0 % 10/08/2024 5:47 PM [facility] Neutrophil Absolute 11.40(H) 1.60 - 7.50 x10E9/L 10/08/2024 5:47 PM [facility] Lymphocyte Absolute 2.59 1.00 - 4.40 x10E9/L 10/08/2024 5:47 PM [facility] Monocyte Absolute 1.32(H) 0.15 - 1.00 x10E9/L 10/08/2024 5:47 PM [facility] Eosinophil Absolute 0.32 0.00 - 0.60 x10E9/L 10/08/2024 5:47 PM [facility] Basophil Absolute 0.08 0.00 - 0.13 x10E9/L 10/08/2024 5:47 PM [facility] Blood BLOOD SPECIMEN / Unknown Venipuncture / Unknown 10/08/2024 5:27 PM RETAIL GENERAL MANAGER 10/08/2024 5:39 PM RETAIL GENERAL MANAGER Moncho Kramer MD LAB - HEMATOLOGY OR DERABLES [facility] [address] [place] [address], [facility] [phone] * (ABNORMAL) BASIC METABOLIC PANEL (CALCIUM TOTAL) (10/08/2024 5:27 PM RETAIL GENERAL MANAGER) BUN 16 7 - 26 mg/dL 10/08/2024 6:08 PM [facility] Creatinine 1.14 0.71 - 1.16 mg/dL 10/08/2024 6:08 PM [facility] Sodium 138 136 - 145 mmol/L 10/08/2024 6:08 PM [facility] Potassium 3.9 3.5 - 4.5 mmol/L 10/08/2024 6:08 PM [facility] Chloride 104 98 - 107 mmol/L 10/08/2024 6:08 PM [facility] CO2 24 22 - 29 mmol/L 10/08/2024 6:08 PM [facility] Glucose 104(H) 70 - 99 mg/dL 10/08/2024 6:08 PM [facility] Calcium 8.9 8.4 - 10.2 mg/dL 10/08/2024 6:08 PM [facility] Anion Gap 10 6 - 16 10/08/2024 6:08 PM [facility] BUN/Creatinine Ratio 14 7 - 23 10/08/2024 6:08 PM [facility] Osmolality Calculated 287 275 - 295 mOsm/kg 10/08/2024 6:08 PM [facility] eGFR by CKD-EPI 80(L) >=90 mL/min/1.7 3 m2 10/08/2024 6:08 PM [facility] Blood BLOOD SPECIMEN / Unknown Venipuncture / Unknown 10/08/2024 5:27 PM RETAIL GENERAL MANAGER 10/08/2024 5:39 PM RETAIL GENERAL MANAGER Moncho Kramer MD LAB - CHEMISTRY ORD ERABLES Performing Organization Address City/[facility]/ZIP Co de Phone Number [address] [address], [place] [phone] * ALCOHOL ETHYL BLOOD (10/08/2024 5:27 PM RETAIL GENERAL MANAGER) Ethanol (mg/dL) <10 <10 mg/dL 6:08 PM [facility] Ethanol Calculated (g/dL) <0.010 <=0.010 g/dL 10/08/2024 6:08 PM [facility] Blood BLOOD SPECIMEN / Unknown Venipuncture / Unknown 10/08/2024 5:27 PM RETAIL GENERAL MANAGER 10/08/2024 5:39 PM RETAIL GENERAL MANAGER Narrative [facility] - 10/08/2024 6:08 PM RETAIL GENERAL MANAGER Ethanol Interp <10: None Detected. Depression of SALES DEVELOPMENT REPRESENTATIVE: >100 mg/dl Potentially Critical: >250 mg/dl Potentially [...] - CHEMISTRY ORD ERABLES Performing Organization Address City/[facility]/ZIP Co de Phone Number [address] [address], [place] [phone] * XR CHEST 1VW PORTABLE (10/08/2024 5:15 PM RETAIL GENERAL MANAGER) Anatomical Region Laterality Modality Chest Digital Radiogra phy 10/08/2024 5:26 PM RETAIL GENERAL MANAGER Narrative 10/09/2024 8:02 AM RETAIL GENERAL MANAGER PROCEDURE: XR CHEST 1VW PORTABLE, DATE/TIME OF EXAM: 10/08/2024 5:23 PM, LOCATION [facility] INDICATION: Trauma ADDITIONAL CLINICAL INFORMATION: Ordering Provider Reason For Exam: Technologist Note: Additional: COMPARISON: None. FINDINGS/IMPRESSION: No focal consolidation, pleural effusion, or pneumothorax. The cardiomediastinal silhouette is normal. No acute osseous abnormality. Degenerative changes of the thoracic spine. > Dictated by Caron Jimenes MD (residential sales associate) Maycol Levi MD have personally reviewed and interpreted this examination/study. > Interpreting Provider: Maycol Warren MD on 10/09/2024 8:02 AM Procedure Note Maycol Warren MD - 10/09/2024 PROCEDURE: XR CHEST 1VW PORTABLE, DATE/TIME OF EXAM: 10/08/2024 5:23PM, LOCATION [facility] INDICATION: Trauma ADDITIONAL CLINICAL INFORMATION: Ordering Provider Reason For Exam: Technologist Note: Additional: COMPARISON: None. FINDINGS/IMPRESSION: No focal consolidation, pleural effusion, or pneumothorax. The cardiomediastinal silhouette is normal. No acute osseousabnormality. Degenerative changes of the thoracic spine. > Dictated by Caron Jimenes MD (residential sales associate) Maycol Levi MD have personally reviewed and interpreted this examination/study. > Interpreting Provider: Maycol Warren MD on 10/09/2024 8:02 AM Moncho Kramer MD DIAGNOSTIC IMAGING ORDERABLES from Last 3 Months Care Teams Lunchroom Attendant Relationship Specialty Start Date End Date Brianda Maciel PA-C [address] [place] [address] PCP - General Physician Analytical Manager 10/08/24
--- OUTSIDE RECORDS SUMMARY | 2024-10-27 09:42 | XMS_ITS | Referral Summary ---
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 Kramer MD LAB - CHEMISTRY ORD ERABLES [address] [address], [facility] [phone] * XR CHEST 1VW PORTABLE (10/08/2024 5:15 PM EXCEPTIONAL STUDENT EDUCATION AIDE) Anatomical Region Laterality Modality Chest Digital Radiogra phy 10/08/2024 5:26 PM EXCEPTIONAL STUDENT EDUCATION AIDE Narrative 10/09/2024 8:02 AM EXCEPTIONAL STUDENT EDUCATION AIDE PROCEDURE: XR CHEST 1VW PORTABLE, DATE/TIME OF EXAM: 10/08/2024 5:23 PM, LOCATION [facility] INDICATION: Trauma ADDITIONAL CLINICAL INFORMATION: Ordering Provider Reason For Exam: Technologist Note: Additional: COMPARISON: None. FINDINGS/IMPRESSION: No focal consolidation, pleural effusion, or pneumothorax. The cardiomediastinal silhouette is normal. No acute osseous abnormality. Degenerative changes of the thoracic spine. > Dictated by Caron Jimenes MD (rn residential) Maycol Levi MD have personally reviewed and interpreted this examination/study. > Interpreting Provider: Maycol Warren MD on 10/09/2024 8:02 AM Procedure Note Maycol Warren MD - 10/09/2024 PROCEDURE: XR CHEST 1VW PORTABLE, DATE/TIME OF EXAM: 10/08/2024 5:23PM, LOCATION [facility] INDICATION: Trauma ADDITIONAL CLINICAL INFORMATION: Ordering Provider Reason For Exam: Technologist Note: Additional: COMPARISON: None. FINDINGS/IMPRESSION: No focal consolidation, pleural effusion, or pneumothorax. The cardiomediastinal silhouette is normal. No acute osseousabnormality. Degenerative changes of the thoracic spine. > Dictated by Caron Jimenes MD ([facility] residential) Maycol Levi MD have personally reviewed and interpreted this examination/study. 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
--- OUTSIDE RECORDS SUMMARY | 2024-10-27 09:43 | XMS_ITS | Data Portability ---
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 Not available 10/27/2024 09:24:56 Plan of Treatment Reminders Order Date Submit Date Provider Last Modified By Organization Details Last Modified Time Details Appointments ANY 15 2024 07:45A M ROYA GARCIA Not available Not available Not available ANY 15 2024 04:15P ROYA TORREZ Not available Not available Not available Lab HbA1c (hemoglob in A1c), blood 2023 024 [facility], [address], [address], [place], [address], 07/01/2024 12:16:36 CMP, serum or plasma 2023 024 [facility], [address] [facility] [address], [address], [place], [address], 06/30/2024 23:07:38 CBC w/ auto diff 2023 024 [facility], [address], [address], [place], [address], 06/30/2024 23:07:39 lipid panel, serum 2023 024 [facility], [address], [address], [place], [address], 06/30/2024 23:07:37 albumin/c reatinine , mass ratio, urine 2023 024 [facility], [address], [address], [place], [address], 07/01/2024 12:16:35 Referral cardiolog ist referral 2023 024 KAZ Cook DO, [address] [facility] [address], [place], [address], 08/21/2024 13:44:18 otolaryng ologist referral 2023 024 Thiago Saavedra, [address] [facility], [place], [address], 08/29/2024 07:36:20 pulmonolo gist referral 2023 024 Reji Garcia, [address] [facility], [address], [place], [address], 07/29/2024 08:16:15 dermatolo gist referral 2023 024 [email or web address] [facility], [address] [place], [address], 07/29/2024 08:16:17 Procedures None recorded. Surgeries None recorded. Imaging XR, foot 2024 025 [facility], [address] [facility] [address], [place], [address], 10/27/2024 09:26:37 XR, wrist, 3 or more view 2024 025 [facility], [facility] [address], [place], [address], 10/27/2024 10:33:38 XR, chest, 2 view [address] ([facility]), [address] [place] [address] [place], [address], 07/29/2024 08:16:25 electroca rdiogram [address] ([facility]), [facility] [place], [address], 07/29/2024 08:16:25 US, thyroid [address] ([facility]), [address] [place] [address] [place], [address], 07/29/2024 08:16:25 CT, chest, w/o contrast [address] ([facility]), [facility] [place], [address], 07/29/2024 08:16:25 Medication Orders hydrocodo ne 5 mg-acetam inophen 325 mg tablet 2024 025 [facility], [address] [place] [address], [address], 10/13/2024 15:58:22 lisinopri l 10 mg-hydroc hlorothia zide 12.5 mg tablet 2023 024 [facility], [address] [place] [address], [address], 06/30/2024 13:00:32 lisinopri l 20 mg tablet [address] [facility], [address] [place] [address], [address], 11/13/2023 15:28:22 Patient TargetsNo targets recorded. 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 Class Referral for C hronic obstructive pulmonary disease Referring Physician: Tami Andrews Ict Business Development Manager, Encounter Date: 06/30/2024 Rn Transitional Referral fo r Lesion of lip Referring Physician: Tami Andrews Ict Business Development Manager, Encounter Date: 06/30/2024 Pull Over Referral for S kin lesion Referring Physician: Tami Andrews Ict Business Development Manager, Encounter Date: 06/30/2024 Byproduct Engineer Referral for Ch est pain Referring Physician: Tami Andrews Ict Business Development Manager, Encounter Date: 06/30/2024 Results Created Date Observation Date Name Description Value Unit Range Abnormal Flag Note LastModifiedBy Organization Detail LastModifiedTime 06/30/20 24 06/30/2024 LIPID PANEL cholesterol, total 223 mg/dL 100-19 9 above high normal Not Available [facility] [address] [place], [address], 06/30/2024 23:07:37 06/30/20 24 06/30/2024 LIPID PANEL triglyceride s 96 mg/dL 0-149 Not Available [facility] [address] [place], [address], 06/30/2024 23:07:37 06/30/20 24 06/30/2024 LIPID PANEL HDL cholesterol 72 mg/dL 40-999 Not Available [facility] Department [address] [place], [address], 06/30/2024 23:07:37 06/30/20 24 06/30/2024 LIPID PANEL VLDL cholesterol rachael 19 mg/dL 5-40 Not Available [facility] [address] [place], [address], 06/30/2024 23:07:37 06/30/20 24 06/30/2024 LIPID PANEL LDL chol calc (nih) 146 mg/dL 0-99 above high normal Not Available [facility] [address] [place], [address], 06/30/2024 23:07:37 06/30/20 24 06/30/2024 COMP. METAB OLIC PANEL (14) glucose 82 mg/dL 70-99 Not Available [facility] [address] [place] [address], [address], 06/30/2024 23:07:38 06/30/20 24 06/30/2024 COMP. METAB OLIC PANEL (14) BUN 12 mg/dL 6-24 Not Available [facility] [address] [place], [address], 06/30/2024 23:07:38 06/30/20 24 06/30/2024 COMP. METAB OLIC PANEL (14) creatinine 0.73 mg/dL 0.76-1 .27 below low normal Not Available [facility] [address] [place], [address], 06/30/2024 23:07:38 06/30/20 24 06/30/2024 COMP. METAB OLIC PANEL (14) eGFR 113 >=60 Units for eGFR value s are mL/mi n/1.7 3 The eGFR Calcu latio n has not been valid ated for patie nts under the age of 18. If test resul ts are displ ayed for a patie nt under the age of 18, disre eduin that value . Not Available [facility] [address] [place], [address], 06/30/2024 23:07:38 06/30/20 24 06/30/2024 COMP. METAB OLIC PANEL (14) BUN/creatini ne ratio 17 9-20 Not Available [facility] [address] [place], [address], 06/30/2024 23:07:38 06/30/20 24 06/30/2024 COMP. METAB OLIC PANEL (14) sodium 140 mmol/ L 134-14 4 Not Available [facility] [address] [place], [address], 06/30/2024 23:07:38 06/30/20 24 06/30/2024 COMP. METAB OLIC PANEL (14) potassium 4.9 mmol/ L 3.5-5. 2 Not Available [facility] [address] [place], [address], 06/30/2024 23:07:38 06/30/20 24 06/30/2024 COMP. METAB OLIC PANEL (14) chloride 103 mmol/ L 96-106 Not Available [facility] [address] [place], [address], 06/30/2024 23:07:38 06/30/20 24 06/30/2024 COMP. METAB OLIC PANEL (14) carbon dioxide, total 25 mmol/ L 20-29 Not Available [facility] [address] [place], [address], 06/30/2024 23:07:38 06/30/20 24 06/30/2024 COMP. METAB OLIC PANEL (14) calcium 10.0 mg/dL 8.7-10 .2 Not Available [facility] [address] [place], [address], 06/30/2024 23:07:38 06/30/20 24 06/30/2024 COMP. METAB OLIC PANEL (14) protein, total 7.7 g/dL 6.0-8. 5 Not Available [facility] [address] [place], [address], 06/30/2024 23:07:38 06/30/20 24 06/30/2024 COMP. METAB OLIC PANEL (14) albumin 4.9 g/dL 4.1-5. 1 Not Available [facility] [address] [place], [address], 06/30/2024 23:07:38 06/30/20 24 06/30/2024 COMP. METAB OLIC PANEL (14) globulin, total 2.8 g/dL 1.5-4. 5 Not Available [facility] [address] [place], [address], 06/30/2024 23:07:38 06/30/20 24 06/30/2024 COMP. METAB OLIC PANEL (14) A/G ratio 1.7 1.2-2. 2 Not Available [facility] [address] [place] [address], [address], 06/30/2024 23:07:38 06/30/20 24 06/30/2024 COMP. METAB OLIC PANEL (14) bilirubin, total 0.3 mg/dL 0.0-1. 2 Not Available [facility] [address] [place] [address], [address], 06/30/2024 23:07:38 06/30/20 24 06/30/2024 COMP. METAB OLIC PANEL (14) alkaline phosphatase 64 IU/L 44-121 Not Available [facility] Department [address] [place] [address], [address], 06/30/2024 23:07:38 06/30/20 24 06/30/2024 COMP. METAB OLIC PANEL (14) AST (SGOT) 16 IU/L 0-40 Not Available [facility] Department [address] [place] [address], [address], 06/30/2024 23:07:38 06/30/20 24 06/30/2024 COMP. METAB OLIC PANEL (14) ALT (SGPT) 26 IU/L 0-44 Not Available [facility] [address] [place] [address], [address], 06/30/2024 23:07:38 06/30/20 24 06/30/2024 CBC WITH DIFFE RENTI AL/PL ATELE T WBC 8.4 x10e3 /uL 3.4-10 .8 Not Available [facility] [address] [place], [address], 06/30/2024 23:07:39 06/30/20 24 06/30/2024 CBC WITH DIFFE RENTI AL/PL ATELE T RBC 4.87 x10e6 /uL 4.14-5 .80 Not Available [facility] [address] [place], [address], 06/30/2024 23:07:39 06/30/20 24 06/30/2024 CBC WITH DIFFE RENTI AL/PL ATELE T hemoglobin 15.3 g/dL 13.0-1 7.7 Not Available [facility] [address] [place], [address], 06/30/2024 23:07:39 06/30/20 24 06/30/2024 CBC WITH DIFFE RENTI AL/PL ATELE T hematocrit 45.9 % 37.5-5 1.0 Not Available [facility] [address] [place], [address], 06/30/2024 23:07:39 06/30/20 24 06/30/2024 CBC WITH DIFFE RENTI AL/PL ATELE T MCV 94 fL 79-97 Not Available [facility] [address] [place], [address], 06/30/2024 23:07:39 06/30/20 24 06/30/2024 CBC WITH DIFFE RENTI AL/PL ATELE T MCH 31.4 pg 26.6-3 3.0 Not Available [facility] [address] [place], [address], 06/30/2024 23:07:39 06/30/20 24 06/30/2024 CBC WITH DIFFE RENTI AL/PL ATELE T MCHC 33.3 g/dL 31.5-3 5.7 Not Available [facility] [address] [place], [address], 06/30/2024 23:07:39 06/30/20 24 06/30/2024 CBC WITH DIFFE RENTI AL/PL ATELE T RDW 13.2 % 11.5-1 4.5 Not Available [facility] [address] [place], [address], 06/30/2024 23:07:39 06/30/20 24 06/30/2024 CBC WITH DIFFE RENTI AL/PL ATELE T platelets 312 x10e3 /uL 150-45 0 Not Available [facility] [address] [place], [address], 06/30/2024 23:07:39 06/30/20 24 06/30/2024 CBC WITH DIFFE RENTI AL/PL ATELE T neutrophils 61 % notest b. Not Available [facility] [address] [place], [address], 06/30/2024 23:07:39 06/30/20 24 06/30/2024 CBC WITH DIFFE RENTI AL/PL ATELE T lymphs 24 % notest b. Not Available [facility] [address] [place], [address], 06/30/2024 23:07:39 06/30/20 24 06/30/2024 CBC WITH DIFFE RENTI AL/PL ATELE T monocytes 11 % notest b. Not Available [facility] [address] [place], [address], 06/30/2024 23:07:39 06/30/20 24 06/30/2024 CBC WITH DIFFE RENTI AL/PL ATELE T eos 2 % notest b. Not Available [facility] [address] [place], [address], 06/30/2024 23:07:39 06/30/20 24 06/30/2024 CBC WITH DIFFE RENTI AL/PL ATELE T basos 1 % notest b. Not Available [facility] [address] [place], [address], 06/30/2024 23:07:39 06/30/20 24 06/30/2024 CBC WITH DIFFE RENTI AL/PL ATELE T neutrophils (absolute) 5.1 x10e3 /uL 1.4-7. 0 Not Available [facility] [address] [place], [address], 06/30/2024 23:07:39 06/30/20 24 06/30/2024 CBC WITH DIFFE RENTI AL/PL ATELE T lymphs (absolute) 2.0 x10e3 /uL 0.7-3. 1 Not Available [facility] [address] [place], [address], 06/30/2024 23:07:39 06/30/20 24 06/30/2024 CBC WITH DIFFE RENTI AL/PL ATELE T monocytes(ab solute) 0.9 x10e3 /uL 0.1-0. 9 Not Available [facility] [address] [place], [address], 06/30/2024 23:07:39 06/30/20 24 06/30/2024 CBC WITH DIFFE RENTI AL/PL ATELE T eos (absolute) 0.2 x10e3 /uL 0.0-0. 4 Not Available [facility] [address] [place], [address], 06/30/2024 23:07:39 06/30/20 24 06/30/2024 CBC WITH DIFFE RENTI AL/PL ATELE T baso (absolute) 0.1 x10e3 /uL 0.0-0. 2 Not Available [facility] [address] [place], [address], 06/30/2024 23:07:39 06/30/20 24 06/30/2024 CBC WITH DIFFE RENTI AL/PL ATELE T immature granulocytes 0.4 % notest b. Not Available [facility] [address] [place], [address], 06/30/2024 23:07:39 06/30/20 24 06/30/2024 CBC WITH DIFFE RENTI AL/PL ATELE T immature grans (abs) 0.0 x10e3 /uL 0.0-0. 1 Not Available [facility] [address] [place], [address], 06/30/2024 23:07:39 06/30/20 24 06/30/2024 CBC WITH DIFFE RENTI AL/PL ATELE T NRBC 0 % 0-0 Not Available [facility] [address] [place], [address], 06/30/2024 23:07:39 06/30/20 24 07/01/2024 ALBUM IN/CR EATIN INE RATIO ,URIN E creatinine, urine 30.9 mg/dL notest ab. Not Available [facility] ([facility]) [address] [place], [address], 07/01/2024 12:16:35 06/30/20 24 07/01/2024 ALBUM IN/CR EATIN INE RATIO ,URIN E albumin, urine <3.0 ug/mL notest ab. Not Available [facility] ([facility]) [address] [facility], [place], [address], 07/01/2024 12:16:35 06/30/20 24 07/01/2024 ALBUM IN/CR EATIN INE RATIO ,URIN E alb/creat ratio <10 Haylee l: 0 - 29 Moder ately incre ased: 30 - 300 Sever brennan incre ased: >300 Not Available [facility] ([facility]) [address] [facility], [place], [address], 07/01/2024 12:16:35 06/30/20 24 07/01/2024 HEMOG LOBIN A1C hemoglobin A1C 5.8 % 4.8-5. 6 above high normal Predi abete s: 5.7 - 6.4 Diabe semaj: >6.4 Glyce aria contr ol for adult s with diabe semaj: <7.0 Not Available [facility] ([facility]) [address] [facility], [place], [address], 07/01/2024 12:16:36 10/08/1910/08/2024 Blood type and Indir ect antib em scree n panel - Blood blood group antibody screen [presence] in serum or plasma NEG Antib em Scree n NEG 10/08 6:15 PM [facility] Not Available Not Available 10/10/2024 17:16:09 10/08/1910/08/2024 Blood type and Indir ect antib em scree n panel - Blood ABO and Rh group [type] in blood A POS ABO Rh A POS 10/08 6:15 PM [facility] Not Available Not Available 10/10/2024 17:16:09 10/08/1910/08/2024 CBC W Auto Diffe renti al panel - Blood leukocytes [#/volume] in blood by automated count 15.8 text: 4.0 - 10.7 x10e9/ L high WBC 15.8 (H) 4.0 - 10.7 x10E9 /L 10/08 5:47 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[facility] Not Available Not Available 10/10/2024 17:16:09 10/08/1910/08/2024 CBC W Auto Diffe renti al panel - Blood erythrocytes [#/volume] in blood by automated count 4.12 text: 4.30 - 5.80 x10e12 /L low RBC Count 4.12 (L) 4.30 - 5.80 x10E1 2/L 10/08 5:47 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[facility] Not Available Not Available 10/10/2024 17:16:09 10/08/1910/08/2024 CBC W Auto Diffe renti al panel - Blood hemoglobin [mass/volume ] in blood 12.8 g/dL low: 13.3g/ dLhigh : 17.5g/ dL low Hemog lobin 12.8 (L) 13.3 - 17.5 g/dL 10/08 5:47 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[facility] Not Available Not Available 10/10/2024 17:16:09 10/08/1910/08/2024 CBC W Auto Diffe renti al panel - Blood hematocrit [volume fraction] of blood by automated count 37.6 % low: 38.7%h igh: 51.1% low Hemat ocrit 37.6 (L) 38.7 - 51.1 % 10/08 5:47 PM [facility] Not Available Not Available 10/10/2024 17:16:09 10/08/1910/08/2024 CBC W Auto Diffe renti al panel - Blood MCV [entitic volume] by automated count 91.3 fL low: 80fLhi gh: 98fL MCV 91.3 80.0 - 98.0 fL 10/08 5:47 PM [facility] Not Available Not Available 10/10/2024 17:16:09 10/08/19 25 10/08/2024 CBC W Auto Diffe renti al panel - Blood MCH [entitic mass] by automated count 31.1 pg low: 26.7pg high: 33.6pg MCH 31.1 26.7 - 33.6 pg 10/08 5:47 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[facility] Not Available Not Available 10/10/2024 17:16:09 10/08/1910/08/2024 CBC W Auto Diffe renti al panel - Blood MCHC [mass/volume ] by automated count 34 g/dL low: 31.7g/ dLhigh : 36.3g/ dL MCHC 34.0 31.7 - 36.3 g/dL 10/08 5:47 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[facility] Not Available Not Available 10/10/2024 17:16:09 10/08/19 25 10/08/2024 CBC W Auto Diffe renti al panel - Blood erythrocyte distribution width [ratio] by automated count 13.6 % low: 11.3%h igh: 14.8% RDW-C V 13.6 11.3 - 14.8 % 10/08 5:47 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[facility] Not Available Not Available 10/10/2024 17:16:09 10/08/19 25 10/08/2024 CBC W Auto Diffe renti al panel - Blood platelets [#/volume] in blood by automated count 278 text: 150 - 420 x10e9/ L Plate let Count 278 150 - 420 x10E9 /L 10/08 5:47 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[facility] Not Available Not Available 10/10/2024 17:16:09 10/08/1910/08/2024 CBC W Auto Diffe renti al panel - Blood platelet mean volume [entitic volume] in blood by automated count 10.4 fL low: 7.8fLh igh: 11.4fL MPV 10.4 7.8 - 11.4 fL 10/08 5:47 PM [facility] Not Available Not Available 10/10/2024 17:16:09 10/08/19 25 10/08/2024 CBC W Auto Diffe renti al panel - Blood neutrophils/ 100 leukocytes in blood by automated count 72.3 % low: 41%hig h: 74% Neutr ophil % 72.3 41.0 - 74.0 % 10/08 5:47 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[facility] Not Available Not Available 10/10/2024 17:16:09 10/08/1910/08/2024 CBC W Auto Diffe renti al panel - Blood lymphocytes/ 100 leukocytes in blood by automated count 16.4 % low: 17%hig h: 47% low Lymph ocyte % 16.4 (L) 17.0 - 47.0 % 10/08 5:47 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[facility] Not Available Not Available 10/10/2024 17:16:09 10/08/19 25 10/08/2024 CBC W Auto Diffe renti al panel - Blood monocytes/10 0 leukocytes in blood by automated count 8.4 % low: 3%high : 11% Monoc yte % 8.4 3.0 - 11.0 % 10/08 5:47 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[facility] Not Available Not Available 10/10/2024 17:16:09 10/08/19 25 10/08/2024 CBC W Auto Diffe renti al panel - Blood eosinophils/ 100 leukocytes in blood by automated count 2 % low: 0%high : 7% Eosin ophil % 2.0 0.0 - 7.0 % 10/08 5:47 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[facility] Not Available Not Available 10/10/2024 17:16:09 10/08/19 25 10/08/2024 CBC W Auto Diffe renti al panel - Blood basophils/10 0 leukocytes in blood by automated count 0.5 % low: 0%high : 1.6% Basop hil % 0.5 0.0 - 1.6 % 10/08 5:47 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[facility] Not Available Not Available 10/10/2024 17:16:09 10/08/19 25 10/08/2024 CBC W Auto Diffe renti al panel - Blood immature granulocytes /100 leukocytes in blood by automated count 0.4 % low: 0%high : 1% Immat ure Granu locyt es % 0.4 0.0 - 1.0 % 10/08 5:47 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[facility] Not Available Not Available 10/10/2024 17:16:09 10/08/19 25 10/08/2024 CBC W Auto Diffe renti al panel - Blood neutrophils [#/volume] in blood by automated count 11.4 text: 1.60 - 7.50 x10e9/ L high Neutr ophil Absol [place] 11.40 (H) 1.60 - 7.50 x10E9 /L 10/08 5:47 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[facility] Not Available Not Available 10/10/2024 17:16:09 10/08/1910/08/2024 CBC W Auto Diffe renti al panel - Blood lymphocytes [#/volume] in blood by automated count 2.59 text: 1.00 - 4.40 x10e9/ L Lymph ocyte Absol [place] 2.59 1.00 - 4.40 x10E9 /L 10/08 5:47 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[facility] Not Available Not Available 10/10/2024 17:16:09 10/08/1910/08/2024 CBC W Auto Diffe renti al panel - Blood monocytes [#/volume] in blood by automated count 1.32 text: 0.15 - 1.00 x10e9/ L high Monoc yte Absol [place] 1.32 (H) 0.15 - 1.00 x10E9 /L 10/08 5:47 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[facility] Not Available Not Available 10/10/2024 17:16:09 10/08/1910/08/2024 CBC W Auto Diffe renti al panel - Blood eosinophils [#/volume] in blood 0.32 text: 0.00 - 0.60 x10e9/ L Eosin ophil Absol [place] 0.32 0.00 - 0.60 x10E9 /L 10/08 5:47 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[facility] Not Available Not Available 10/10/2024 17:16:09 10/08/19 25 10/08/2024 CBC W Auto Diffe renti al panel - Blood basophils [#/volume] in blood by automated count 0.08 text: 0.00 - 0.13 x10e9/ L Basop hil Absol [place] 0.08 0.00 - 0.13 x10E9 /L 10/08 5:47 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[facility] Not Available Not Available 10/10/2024 17:16:09 10/08/19 25 10/08/2024 CBC W Auto Diffe renti al panel - Blood interpretati on and review of laboratory results Abnorm al Not Available Not Available 17:16:09 10/08/1910/08/2024 Basic metab olic 2000 panel - Serum or Plasm a urea nitrogen [mass/volume ] in serum or plasma 16 mg/dL low: 7mg/dL high: 26mg/d L BUN 16 7 - 26 mg/dL 10/08 6:08 PM [facility] Not Available Not Available 10/10/2024 17:16:09 10/08/19 25 10/08/2024 Basic metab olic 1999 panel - Serum or Plasm a creatinine [mass/volume ] in serum or plasma 1.14 mg/dL low: 0.71mg /dLhig h: 1.16mg /dL Creat inine 1.14 0.71 - 1.16 mg/dL 10/08 6:08 PM [facility] Not Available Not Available 10/10/2024 17:16:09 10/08/1910/08/2024 Basic metab olic 1999 panel - Serum or Plasm a sodium [moles/volum e] in serum or plasma 138 mmol/ L low: 136mmo l/Lhig h: 145mmo l/L Sodiu m 138 136 - 145 mmol/ L 10/08 6:08 PM [facility] Not Available Not Available 10/10/2024 17:16:09 10/08/1910/08/2024 Basic metab olic 1999 panel - Serum or Plasm a potassium [moles/volum e] in serum or plasma 3.9 mmol/ L low: 3.5mmo l/Lhig h: 4.5mmo l/L Potas sium 3.9 3.5 - 4.5 mmol/ L 10/08 6:08 PM [facility] Not Available Not Available 10/10/2024 17:16:09 10/08/19 25 10/08/2024 Basic metab olic 1999 panel - Serum or Plasm a chloride [moles/volum e] in serum or plasma 104 mmol/ L low: 98mmol /Lhigh : 107mmo l/L Chlor kwame 104 98 - 107 mmol/ L 10/08 6:08 PM [facility] Not Available Not Available 10/10/2024 17:16:09 10/08/19 10/08/2024 Basic metab olic 1999 panel - Serum or Plasm a carbon dioxide, total [moles/volum e] in serum or plasma 24 mmol/ L low: 22mmol /Lhigh : 29mmol /L CO2 24 22 - 29 mmol/ L 10/08 6:08 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[facility] Not Available Not Available 10/10/2024 17:16:09 10/08/19 25 10/08/2024 Basic metab olic 1999 panel - Serum or Plasm a glucose [mass/volume ] in serum or plasma 104 mg/dL low: 70mg/d Lhigh: 99mg/d L high Gluco se 104 (H) 70 - 99 mg/dL 10/08 6:08 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[facility] Not Available Not Available 10/10/2024 17:16:09 10/08/1910/08/2024 Basic metab olic 2000 panel - Serum or Plasm a calcium [moles/volum e] in serum or plasma 8.9 mg/dL low: 8.4mg/ dLhigh : 10.2mg /dL Calci um 8.9 8.4 - 10.2 mg/dL 10/08 6:08 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[facility] Not Available Not Available 10/10/2024 17:16:09 10/08/19 25 10/08/2024 Basic metab olic 2000 panel - Serum or Plasm a anion gap 10 low: 6high: 16 Anion Gap 10 6 - 16 10/08 6:08 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[facility] Not Available Not Available 10/10/2024 17:16:09 10/08/19 25 10/08/2024 Basic metab olic 2000 panel - Serum or Plasm a urea nitrogen/cre atinine [mass ratio] in serum or plasma 14 low: 7high: 23 BUN/C reati nine Ratio 14 7 - 23 10/08 6:08 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[facility] Not Available Not Available 10/10/2024 17:16:09 10/08/19 25 10/08/2024 Basic metab olic 2000 panel - Serum or Plasm a osmolality calculated 287 text: 275 - 295 mOsm/k g Osmol ality Calcu lated 287 275 - 295 mOsm/ kg 10/08 6:08 PM [facility] Not Available Not Available 10/10/2024 17:16:09 10/08/1910/08/2024 Basic metab olic 2000 panel - Serum or Plasm a glomerular filtration rate/1.73 sq M.predicted [volume rate/area] in serum, plasma or blood by creatinine-b ased formula (CKD-epi 2020) 80 text: >=90 mL/min /1.73 m2 low eGFR by CKD-E PI 80 (L) >=90 mL/mi n/1.7 3 m2 10/08 6:08 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[employer] [facility] Not Available Not Available 10/10/2024 17:16:09 10/08/1910/08/2024 Basic metab olic 1999 panel - Serum or Plasm a interpretati on and review of laboratory results Abnorm al Not Available Not Available 17:16:09 10/08/1910/08/2024 Piyush ol [Mass /volu me] in Serum or Plasm a ethanol [mass/volume ] in serum or plasma high: 10mg/d L Piyush ol (mg/d L) <10 <10 mg/dL 10/08 6:08 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 Depres emmett of VEGETABLE LOADER: >100 mg/dl Potent ially Critic al: >250 [...] <10: None Detec silvia. Depre ssion of VEGETABLE LOADER: >100 mg/dl Poten tiall y Criti rachael: [...] Normal Not Available Not Available 09/14 17:16:09 07/30/20 23 07/30/2023 XR, chest , 2 view No observ ation record ed. [address] [facility], [place], [address], 07/31/2023 09:41:31 08/11/20 24 08/11/2024 XR, chest , 2 view No observ ation record ed. [address], [place], [address], 08/11/2024 13:44:45 10/14/19 imagi ng/di agnos tic resul t No observ ation record ed. [email or web address] [id number] Not Available 2024 10:52:05 10/28/19 25 10/27/2024 XR, wrist , 3 or more view No observ ation record ed. [address], [place], [address], 10/27/2024 10:33:38 Result Notes None recorded. Problems Name Problem SNOMED Code Status Onset Date Resolution Date Notes Provider Name and Address Organization Details Recorded Time Chronic back pain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
--- OUTSIDE RECORDS SUMMARY | 2024-10-27 09:43 | XMS_ITS | Clinical Summary ---
Author Organization [facility] Address [address] [place] [address] Care Team Providers Care Warehouse Shipping Associate Name Role Phone Unavailable Primary Care Provider [...] Comments Blood Pressure 138/74 07/03/2016 4:04 PM PSYCHIATRIC NURSE Pulse 80 09/02/2013 11:37 AM PSYCHIATRIC NURSE Temperature - - Respiratory Rate - - Oxygen Saturation - - Inhaled Oxygen Concentration - - Weight 108.9 kg (240 lb) 07/03/2016 4:04 PM PSYCHIATRIC NURSE Height 185.4 cm (6' 1 ) 07/03/2016 4:04 PM PSYCHIATRIC NURSE Body Mass Index 31.66 07/03/2016 4:04 PM PSYCHIATRIC NURSE Plan of Treatment Health Maintenance Due Date [...] Documents on File Type Date Recorded Patient Chemists Expl anation Advance Directives and Livin g Will 06/23/2016 ADVANCE DIRECTIVE Advance Directives and Livin g Will 09/02/2013 ADVANCE DIRECTIVE Advance Directives and Livin g Will 07/01/2013 ADVANCE DIRECTIVE Advance Directives and Livin g Will 05/20/2013 ADVANCE DIRECTIVE Advance Directives and Livin g Will 04/08/2013 ADVANCE DIRECTIVE Advance Directives and Livin g Will 02/17/2013 POWER OF KITCHEN CLERK Advance Directives and Livin g Will 02/17/2013 POWER OF KITCHEN CLERK Advance Directives and Livin g Will 02/17/2013 ADVANCE DIRECTIVE
== END 2024-10-27 09:01 | disposition home or self-care (01) ==
PROVIDERS: PCP Physician Assistant; Visit Provider Physician Assistant
DX: M25.532 Pain in left wrist (principal); M79.672 Pain in left foot
CPT/HCPCS: 73110; 73630

== ENCOUNTER 2024-11-08 08:29 | Emergency (ER) | payer MEDICAID, SELFPAY ==
[2024-11-08 08:32] VITALS: BP 143/88; PULSE 87; RESP 19; TEMP 36.3; O2SAT 100
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
== END 2024-11-08 09:10 | disposition short-term general hospital (02) ==
PROVIDERS: Emergency Provider Nurse Practitioner; PCP Physician Assistant
DX: S70.12XA Contusion of left thigh, initial encounter (principal); I10 Essential (primary) hypertension; J45.909 Unspecified asthma, uncomplicated; F17.210 Nicotine dependence, cigarettes, uncomplicated; V29.99XA Rider (driver) (passenger) of other motorcycle injured in unspecified traffic accident, initial encounter
CPT/HCPCS: 99212; G0463

== ENCOUNTER 2024-11-08 09:33 | Emergency (ER) | payer MEDICAID, SELFPAY ==
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
[2024-11-08 09:36] VITALS: BP 157/95; PULSE 91; RESP 15; TEMP 36.6; O2SAT 100
--- OUTSIDE RECORDS SUMMARY | 2024-11-08 09:36 | XMS_ITS | Encounter Summary ---
Author Organization [facility] Address [address] [place] [address] Care Team Providers Care Accounting Clerk Name Role Phone Brianda Maciel PA-C Primary Care Provider Encounter Details Date Type Department Care Team (Late st Contact Info) Description 10/08/2024 Ophth Exam [facility] - Ophthalmology [address] [place] [id number] Cristobal Cheatham MD [address] [place] [address] Social History Tobacco Use Types Packs/Day Years [...] as of this encounter Plan of Treatment Not on file documented as of this encounter Visit Diagnoses Not on filedocumented in this encounter Care Teams Accounting Clerk Relationship Specialty Start Date End Date Brianda Maciel PA-C [address] [place] [phone] PCP - General Physician Entertainment Musician 10/08/24 documented as of this encounter
--- OUTSIDE RECORDS SUMMARY | 2024-11-08 09:36 | XMS_ITS | Clinical Summary ---
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 [facility] [phone] * (ABNORMAL) BASIC METABOLIC PANEL (CALCIUM TOTAL) (10/08/2024 5:27 PM PSYCHOLOGIST CHIEF) BUN 16 7 - 26 mg/dL 10/08/2024 6:08 PM [facility] Creatinine 1.14 0.71 - 1.16 mg/dL 10/08/2024 6:08 PM [facility] Sodium 138 136 - 145 mmol/L 10/08/2024 6:08 PM [facility] Potassium 3.9 3.5 - 4.5 mmol/L 10/08/2024 6:08 PM [facility] Chloride 104 98 - 107 mmol/L 10/08/2024 6:08 PM [facility] CO2 24 22 - 29 mmol/L 10/08/2024 6:08 PM [facility] Glucose 104(H) 70 - 99 mg/dL 10/08/2024 6:08 PM [facility] Calcium 8.9 8.4 - 10.2 mg/dL 10/08/2024 6:08 PM [facility] Anion Gap 10 6 - 16 10/08/2024 6:08 PM [facility] BUN/Creatinine Ratio 14 7 - 23 10/08/2024 6:08 PM [facility] Osmolality Calculated 287 275 - 295 mOsm/kg 10/08/2024 6:08 PM [facility] eGFR by CKD-EPI 80(L) >=90 mL/min/1.7 3 m2 10/08/2024 6:08 PM [facility] Blood BLOOD SPECIMEN / Unknown Venipuncture / Unknown 10/08/2024 5:27 PM PSYCHOLOGIST CHIEF 10/08/2024 5:39 PM PSYCHOLOGIST CHIEF Moncho Kramer MD LAB - CHEMISTRY ORD ERABLES Performing Organization Address [facility] Co de Phone Number [facility] [address] [place] [address], [facility] [phone] * ALCOHOL ETHYL BLOOD (10/08/2024 5:27 PM PSYCHOLOGIST CHIEF) Ethanol (mg/dL) <10 <10 mg/dL 6:08 PM PSYCHOLOGIST CHIEF [facility] Ethanol Calculated (g/dL) <0.010 <=0.010 g/dL 10/08/2024 6:08 PM [facility] Blood BLOOD SPECIMEN / Unknown Venipuncture / Unknown 10/08/2024 5:27 PM PSYCHOLOGIST CHIEF 10/08/2024 5:39 PM PSYCHOLOGIST CHIEF Narrative [facility] - 10/08/2024 6:08 PM PSYCHOLOGIST CHIEF Ethanol Interp <10: None Detected. Depression of ORTHO NURSE: >100 mg/dl Potentially Critical: >250 mg/dl Potentially [...] - CHEMISTRY ORD ERABLES Performing Organization Address [facility] Co de Phone Number [address] [address], [facility] [phone] * XR CHEST 1VW PORTABLE (10/08/2024 5:15 PM PSYCHOLOGIST CHIEF) Anatomical Region Laterality Modality Chest Digital Radiogra phy 10/08/2024 5:26 PM PSYCHOLOGIST CHIEF Narrative 10/09/2024 8:02 AM PSYCHOLOGIST CHIEF PROCEDURE: XR CHEST 1VW PORTABLE, DATE/TIME OF EXAM: 10/08/2024 5:23 PM, LOCATION [facility] INDICATION: Trauma ADDITIONAL CLINICAL INFORMATION: Ordering Provider Reason For Exam: Technologist Note: Additional: COMPARISON: None. FINDINGS/IMPRESSION: No focal consolidation, pleural effusion, or pneumothorax. The cardiomediastinal silhouette is normal. No acute osseous abnormality. Degenerative changes of the thoracic spine. > Dictated by Caron Jimenes MD (resident physician in radiology) Maycol Levi MD have personally reviewed and interpreted this examination/study. > Interpreting Provider: Maycol Warren MD on 10/09/2024 8:02 AM Procedure Note Maycol Warren MD - 10/09/2024 PROCEDURE: XR CHEST 1VW PORTABLE, DATE/TIME OF EXAM: 10/08/2024 5:23PM, LOCATION [facility] INDICATION: Trauma ADDITIONAL CLINICAL INFORMATION: Ordering Provider Reason For Exam: Technologist Note: Additional: COMPARISON: None. FINDINGS/IMPRESSION: No focal consolidation, pleural effusion, or pneumothorax. The cardiomediastinal silhouette is normal. No acute osseousabnormality. Degenerative changes of the thoracic spine. > Dictated by Caron Jimenes MD (resident physician in radiology) Maycol Levi MD have personally reviewed and interpreted this examination/study. > Interpreting Provider: Maycol Warren MD on 10/09/2024 8:02 AM Moncho Kramer MD DIAGNOSTIC IMAGING ORDERABLES from Last 3 Months Care Teams Knit Goods Washer Relationship Specialty Start Date End Date Brianda Maciel PA-C [facility] [place] [address] PCP - General Physician Gear Repair Supervisor 10/08/24
--- OUTSIDE RECORDS SUMMARY | 2024-11-08 09:37 | XMS_ITS | Clinical Summary ---
Author Organization [facility] Address [address] [place] [address] Care Team Providers Care Maintenance Analyst Name Role Phone Unavailable Primary Care Provider [...] Comments Blood Pressure 138/74 07/03/2016 4:04 PM [facility] Pulse 80 09/02/2013 11:37 AM [facility] Temperature - - Respiratory Rate - - Oxygen Saturation - - Inhaled Oxygen Concentration - - Weight 108.9 kg (240 lb) 07/03/2016 4:04 PM [facility] Height 185.4 cm (6' 1 ) 07/03/2016 4:04 PM [facility] Body Mass Index 31.66 07/03/2016 4:04 PM [facility] Plan of Treatment Health Maintenance Due Date Last Done Comments Colorectal Cancer Screening Colonoscopy (10 Years) 1976 Annual Physical 10/12/1979 Hepatitis C 1994 DTaP, Tdap and Td Vaccines ( 1 - Tdap) 10/12/1995 Hepatitis B Vaccines (1 of 3 - 19+ 3-dose series) 10/12/1995 COVID-19 Vaccine (2023-2 5 season) 2024 Meningococcal B Vaccine Aged Out No [...] Documents on File Type Date Recorded 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
--- OUTSIDE RECORDS SUMMARY | 2024-11-08 09:37 | XMS_ITS | Data Portability ---
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 Lab HbA1c (hemoglobin A1c), blood 2023 024 [facility], [address] [place] [address], [address], [place], [address], 4 12:16:36 CMP, serum or plasma 2023 024 [facility], [address] [place] [address], [address], [place], [address], 4 23:07:38 CBC w/ auto diff 2023 024 [facility], [address] [place] [address], [address], [place], [address], 4 23:07:39 lipid panel, serum 2023 024 [facility], [address] [place] [address], [address], [place], [address], 4 23:07:37 albumin/cre atinine, mass ratio, urine 2023 024 [facility], [address], [address], [place], [address], 4 12:16:35 Referral cardiologis t referral 2023 024 [facility] Arthur Murog DO, [address], [address], [place], [address], 5 13:44:18 otolaryngol ogist referral 2023 024 [email or web address] Thiago Quentin, [address] [facility], [place], [address], 5 07:36:[address] referral 2023 024 [email or web address] Reji Garcia, [address] [facility], [address], [place], [address], 4 08:16:[address] referral 2023 024 [email or web address] [facility], [address] [place], [address], 4 08:16:17 Procedures None recorded. Surgeries None recorded. Imaging XR, foot 2024 025 [email or web address], [address] [facility] [address], [place], [address], 5 09:26:37 XR, wrist, 3 or more view 2024 025 [facility], [address], [place], [address], 5 10:33:38 XR, chest, 2 view [address] ([facility]), [address] [facility] [place], [address], 4 08:16:25 electrocard iogram [address] ([facility]), [address] [facility] [place], [address], 4 08:16:25 US, thyroid [address] ([facility]), [address] [facility] [place], [address], 4 08:16:25 CT, chest, w/o contrast [address] ([facility]), [address] [facility] [place], [address], 4 08:16:25 Medication Orders hydrocodone 5 mg-acetamin ophen 325 mg tablet 2024 025 [facility], [address] [place] [address], [address], 5 15:58:22 lisinopril 10 mg-hydrochl orothiazide 12.5 mg tablet 2023 [facility], [address] [place], [address], 4 13:00:32 lisinopril 20 mg tablet [address] [facility] [address] [facility], [address] [place], [address], 4 15:28:22 Patient TargetsNo targets recorded. 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 Referral for C hronic obstructive pulmonary disease Referring Physician: Tami Maciel Hydramatic Specialist, Encounter Date: 06/30/2024 Patroller Referral fo r Lesion of lip Referring Physician: General Satya Garcia, Encounter Date: 06/30/2024 Registry Np Referral for S kin lesion Referring Physician: General Satya Garcia, Encounter Date: 06/30/2024 Educational Aide Referral for Ch est pain Referring Physician: Tami Maciel Hydramatic Specialist, Encounter Date: 06/30/2024 Results Created Date Observation Date Name Description Value Unit Range Abnormal Flag Note LastModifiedBy Organization Detail LastModifiedTime 06/30/2006/30/2024 LIPID PANEL cholesterol, total 223 mg/dL 100-19 9 above high normal Not Available [facility] [address] [place], [address], 06/30/2024 23:07:37 06/30/20 24 06/30/2024 LIPID PANEL triglyceride s 96 mg/dL 0-149 Not Available [facility] [address] [place], [address], 06/30/2024 23:07:37 06/30/20 24 06/30/2024 LIPID PANEL HDL cholesterol 72 mg/dL 40-999 Not Available [facility] [address] [place], [address], 06/30/2024 23:07:37 06/30/20 24 06/30/2024 LIPID PANEL VLDL cholesterol rachael 19 mg/dL 5-40 Not Available [facility] [address] [place], [address], 06/30/2024 23:07:37 06/30/20 24 06/30/2024 LIPID PANEL LDL chol calc ([facility]) 146 mg/dL 0-99 above high normal Not Available [facility] [address] [place], [address], 06/30/2024 23:07:37 06/30/20 24 06/30/2024 COMP. METAB OLIC PANEL (14) glucose 82 mg/dL 70-99 Not Available [facility] [address] [place], [address], 06/30/2024 23:07:38 06/30/20 24 06/30/2024 COMP. METAB OLIC PANEL (14) BUN 12 mg/dL 6-24 Not Available [facility] [address] [place], [address], 06/30/2024 23:07:38 06/30/20 24 06/30/2024 COMP. METAB OLIC PANEL (14) creatinine 0.73 mg/dL 0.76-1 .27 below low normal Not Available [facility] [address] [place], [address], 06/30/2024 23:07:38 06/30/20 24 06/30/2024 COMP. METAB OLIC PANEL (14) eGFR 113 >=60 Units for eGFR value s are mL/mi n/1.7 3 The eGFR Calcu latio n has not been valid ated for patie nts under the age of 18. If test resul ts are displ ayed for a patie nt under the age of 18, disre eduin that value . Not Available [facility] [address] [place], [address], 06/30/2024 23:07:38 06/30/20 24 06/30/2024 COMP. METAB OLIC PANEL (14) BUN/creatini ne ratio 17 9-20 Not Available [facility] [address] [place], [address], 06/30/2024 23:07:38 06/30/20 24 06/30/2024 COMP. METAB OLIC PANEL (14) sodium 140 mmol/ L 134-14 4 Not Available [facility] [address] [place] [address], [address], 06/30/2024 23:07:38 06/30/20 24 06/30/2024 COMP. METAB OLIC PANEL (14) potassium 4.9 mmol/ L 3.5-5. 2 Not Available [facility] [address] [place], [address], 06/30/2024 23:07:38 06/30/20 24 06/30/2024 COMP. METAB OLIC PANEL (14) chloride 103 mmol/ L 96-106 Not Available [facility] [address] [place] [address], [address], 06/30/2024 23:07:38 06/30/20 24 06/30/2024 COMP. METAB OLIC PANEL (14) carbon dioxide, total 25 mmol/ L 20-29 Not Available [facility] [address] [place] [address], [address], 06/30/2024 23:07:38 06/30/20 24 06/30/2024 COMP. METAB OLIC PANEL (14) calcium 10.0 mg/dL 8.7-10 .2 Not Available [facility] [address] [place] [address], [address], 06/30/2024 23:07:38 06/30/20 24 06/30/2024 COMP. METAB OLIC PANEL (14) protein, total 7.7 g/dL 6.0-8. 5 Not Available [facility] [address] [place], [address], 06/30/2024 23:07:38 06/30/20 24 06/30/2024 COMP. METAB OLIC PANEL (14) albumin 4.9 g/dL 4.1-5. 1 Not Available [facility] [address] [place] [address], [address], 06/30/2024 23:07:38 06/30/20 24 06/30/2024 COMP. METAB OLIC PANEL (14) globulin, total 2.8 g/dL 1.5-4. 5 Not Available [facility] [address] [place], [address], 06/30/2024 23:07:38 06/30/20 24 06/30/2024 COMP. METAB OLIC PANEL (14) A/G ratio 1.7 1.2-2. 2 Not Available [facility] [address] [place], [address], 06/30/2024 23:07:38 06/30/20 24 06/30/2024 COMP. METAB OLIC PANEL (14) bilirubin, total 0.3 mg/dL 0.0-1. 2 Not Available [facility] [address] [place], [address], 06/30/2024 23:07:38 06/30/20 24 06/30/2024 COMP. METAB OLIC PANEL (14) alkaline phosphatase 64 IU/L 44-121 Not Available [facility] [address] [place], [address], 06/30/2024 23:07:38 06/30/20 24 06/30/2024 COMP. METAB OLIC PANEL (14) AST (SGOT) 16 IU/L 0-40 Not Available [facility] [address] [place], [address], 06/30/2024 23:07:38 06/30/20 24 06/30/2024 COMP. METAB OLIC PANEL (14) ALT (SGPT) 26 IU/L 0-44 Not Available [facility] [address] [place], [address], 06/30/2024 23:07:38 06/30/20 24 06/30/2024 CBC WITH DIFFE RENTI AL/PL ATELE T WBC 8.4 x10e3 /uL 3.4-10 .8 Not Available [facility] [address] [place], [address], 06/30/2024 23:07:39 06/30/20 24 06/30/2024 CBC WITH DIFFE RENTI AL/PL ATELE T RBC 4.87 x10e6 /uL 4.14-5 .80 Not Available [facility] [address] [place], [address], 06/30/2024 23:07:39 06/30/20 24 06/30/2024 CBC WITH DIFFE RENTI AL/PL ATELE T hemoglobin 15.3 g/dL 13.0-1 7.7 Not Available [facility] [address] [place], [address], 06/30/2024 23:07:39 06/30/20 24 06/30/2024 CBC WITH DIFFE RENTI AL/PL ATELE T hematocrit 45.9 % 37.5-5 1.0 Not Available [facility] [address] [place], [address], 06/30/2024 23:07:39 06/30/20 24 06/30/2024 CBC WITH DIFFE RENTI AL/PL ATELE T MCV 94 fL 79-97 Not Available [facility] [address] [place], [address], 06/30/2024 23:07:39 06/30/20 24 06/30/2024 CBC WITH DIFFE RENTI AL/PL ATELE T MCH 31.4 pg 26.6-3 3.0 Not Available [facility] [address] [place], [address], 06/30/2024 23:07:39 06/30/20 24 06/30/2024 CBC WITH DIFFE RENTI AL/PL ATELE T MCHC 33.3 g/dL 31.5-3 5.7 Not Available [facility] [address] [place], [address], 06/30/2024 23:07:39 06/30/20 24 06/30/2024 CBC WITH DIFFE RENTI AL/PL ATELE T RDW 13.2 % 11.5-1 4.5 Not Available [facility] [address] [place], [address], 06/30/2024 23:07:39 06/30/20 24 06/30/2024 CBC WITH DIFFE RENTI AL/PL ATELE T platelets 312 x10e3 /uL 150-45 0 Not Available [facility] [address] [place], [address], 06/30/2024 23:07:39 06/30/20 24 06/30/2024 CBC WITH DIFFE RENTI AL/PL ATELE T neutrophils 61 % notest b. Not Available [facility] [address] [place], [address], 06/30/2024 23:07:39 06/30/20 24 06/30/2024 CBC WITH DIFFE RENTI AL/PL ATELE T lymphs 24 % notest b. Not Available [facility] [address] [place], [address], 06/30/2024 23:07:39 06/30/20 24 06/30/2024 CBC WITH DIFFE RENTI AL/PL ATELE T monocytes 11 % notest b. Not Available [facility] [address] [place], [address], 06/30/2024 23:07:39 06/30/20 24 06/30/2024 CBC WITH DIFFE RENTI AL/PL ATELE T eos 2 % notest b. Not Available [facility] [address] [place], [address], 06/30/2024 23:07:39 06/30/20 24 06/30/2024 CBC WITH DIFFE RENTI AL/PL ATELE T basos 1 % notest b. Not Available [facility] [address] [place], [address], 06/30/2024 23:07:39 06/30/20 24 06/30/2024 CBC WITH DIFFE RENTI AL/PL ATELE T neutrophils (absolute) 5.1 x10e3 /uL 1.4-7. 0 Not Available [facility] [address] [place], [address], 06/30/2024 23:07:39 06/30/20 24 06/30/2024 CBC WITH DIFFE RENTI AL/PL ATELE T lymphs (absolute) 2.0 x10e3 /uL 0.7-3. 1 Not Available [facility] [address] [place], [address], 06/30/2024 23:07:39 06/30/20 24 06/30/2024 CBC WITH DIFFE RENTI AL/PL ATELE T monocytes(ab solute) 0.9 x10e3 /uL 0.1-0. 9 Not Available [facility] [address] [place], [address], 06/30/2024 23:07:39 06/30/20 24 06/30/2024 CBC WITH DIFFE RENTI AL/PL ATELE T eos (absolute) 0.2 x10e3 /uL 0.0-0. 4 Not Available [facility] [address] [place], [address], 06/30/2024 23:07:39 06/30/20 24 06/30/2024 CBC WITH DIFFE RENTI AL/PL ATELE T baso (absolute) 0.1 x10e3 /uL 0.0-0. 2 Not Available [facility] [address] [place], [address], 06/30/2024 23:07:39 06/30/20 24 06/30/2024 CBC WITH DIFFE RENTI AL/PL ATELE T immature granulocytes 0.4 % notest b. Not Available [facility] [address] [place], [address], 06/30/2024 23:07:39 06/30/20 24 06/30/2024 CBC WITH DIFFE RENTI AL/PL ATELE T immature grans (abs) 0.0 x10e3 /uL 0.0-0. 1 Not Available [facility] [address] [place], [address], 06/30/2024 23:07:39 06/30/20 24 06/30/2024 CBC WITH DIFFE RENTI AL/PL ATELE T NRBC 0 % 0-0 Not Available [facility] [address] [place], [address], 06/30/2024 23:07:39 06/30/20 24 07/01/2024 ALBUM IN/CR EATIN INE RATIO ,URIN E creatinine, urine 30.9 mg/dL notest ab. Not Available [facility] [address] [place], [address], 07/01/2024 12:16:35 06/30/20 24 07/01/2024 ALBUM IN/CR EATIN INE RATIO ,URIN E albumin, urine <3.0 ug/mL notest ab. Not Available [facility] [address] [place], [address], 07/01/2024 12:16:35 06/30/20 24 07/01/2024 ALBUM IN/CR EATIN INE RATIO ,URIN E alb/creat ratio <10 Haylee l: 0 - 29 Moder ately incre ased: 30 - 300 Sever brennan incre ased: >300 Not Available [facility] [address] [place], [address], 07/01/2024 12:16:35 06/30/20 24 07/01/2024 HEMOG LOBIN A1C hemoglobin A1C 5.8 % 4.8-5. 6 above high normal Predi abete s: 5.7 - 6.4 Diabe semaj: >6.4 Glyce aria contr ol for adult s with diabe semaj: <7.0 Not Available [facility] [address] [facility], [place], [address], 07/01/2024 12:16:36 10/08/1910/08/2024 Blood type and Indir ect antib em scree n panel - Blood blood group antibody screen [presence] in serum or plasma NEG Antib em Scree n NEG 10/08 6:[address] [facility] Not Available Not Available 10/10/2024 17:16:09 10/08/19 25 10/08/2024 Blood type and Indir ect antib em scree n panel - Blood ABO and Rh group [type] in blood A POS ABO Rh A POS 10/08 6:[address] [facility] Not Available Not Available 10/10/2024 17:16:09 10/08/19 25 10/08/2024 CBC W Auto Diffe renti al panel - Blood leukocytes [#/volume] in blood by automated count 15.8 text: 4.0 - 10.7 x10e9/ L high WBC 15.8 (H) 4.0 - 10.7 x10E9 /L 10/08 5:47 PM [employer]ORE SALES MANAGER [facility] Not Available Not Available 10/10/2024 17:16:09 10/08/19 25 10/08/2024 CBC W Auto Diffe renti al panel - Blood erythrocytes [#/volume] in blood by automated count 4.12 text: 4.30 - 5.80 x10e12 /L low RBC Count 4.12 (L) 4.30 - 5.80 x10E1 2/L 10/08 5:47 PM STORE SALES MANAGER [facility] Not Available Not Available 10/10/2024 17:16:09 10/08/19 25 10/08/2024 CBC W Auto Diffe renti al panel - Blood hemoglobin [mass/volume ] in blood 12.8 g/dL low: 13.3g/ dLhigh : 17.5g/ dL low Hemog lobin 12.8 (L) 13.3 - 17.5 g/dL 10/08 5:47 PM STORE SALES MANAGER [facility] Not Available Not Available 10/10/2024 17:16:09 10/08/19 25 10/08/2024 CBC W Auto Diffe royal al panel - Blood hematocrit [volume fraction] of blood by automated count 37.6 % low: 38.7%h igh: 51.1% low Hemat ocrit 37.6 (L) 38.7 - 51.1 % 10/08 5:47 PM STORE SALES MANAGER [facility] Not Available Not Available 10/10/2024 17:16:09 10/08/1910/08/2024 CBC W Auto Diffe royal al panel - Blood MCV [entitic volume] by automated count 91.3 fL low: 80fLhi gh: 98fL MCV 91.3 80.0 - 98.0 fL 10/08 5:47 PM STORE SALES MANAGER [facility] Not Available Not Available 10/10/2024 17:16:09 10/08/19 25 10/08/2024 CBC W Auto Diffe royal al panel - Blood MCH [entitic mass] by automated count 31.1 pg low: 26.7pg high: 33.6pg MCH 31.1 26.7 - 33.6 pg 10/08 5:47 PM STORE SALES MANAGER [facility] Not Available Not Available 10/10/2024 17:16:09 10/08/19 25 10/08/2024 CBC W Auto Diffe hanhti al panel - Blood MCHC [mass/volume ] by automated count 34 g/dL low: 31.7g/ dLhigh : 36.3g/ dL MCHC 34.0 31.7 - 36.3 g/dL 10/08 5:47 PM STORE SALES MANAGER [facility] Not Available Not Available 10/10/2024 17:16:09 10/08/1910/08/2024 CBC W Auto Diffe royal al panel - Blood erythrocyte distribution width [ratio] by automated count 13.6 % low: 11.3%h igh: 14.8% RDW-C V 13.6 11.3 - 14.8 % 10/08 5:47 PM [employer]ORE SALES MANAGER [facility] Not Available Not Available 10/10/2024 17:16:09 10/08/19 25 10/08/2024 CBC W Auto Diffe renti al panel - Blood platelets [#/volume] in blood by automated count 278 text: 150 - 420 x10e9/ L Plate let Count 278 150 - 420 x10E9 /L 10/08 5:47 PM STORE SALES MANAGER [facility] Not Available Not Available 10/10/2024 17:16:09 10/08/1910/08/2024 CBC W Auto Diffe renti al panel - Blood platelet mean volume [entitic volume] in blood by automated count 10.4 fL low: 7.8fLh igh: 11.4fL MPV 10.4 7.8 - 11.4 fL 10/08 5:47 PM STORE SALES MANAGER [facility] Not Available Not Available 10/10/2024 17:16:09 10/08/19 25 10/08/2024 CBC W Auto Diffe renti al panel - Blood neutrophils/ 100 leukocytes in blood by automated count 72.3 % low: 41%hig h: 74% Neutr ophil % 72.3 41.0 - 74.0 % 10/08 5:47 PM STORE SALES MANAGER [facility] Not Available Not Available 10/10/2024 17:16:09 10/08/19 25 10/08/2024 CBC W Auto Diffe renti al panel - Blood lymphocytes/ 100 leukocytes in blood by automated count 16.4 % low: 17%hig h: 47% low Lymph ocyte % 16.4 (L) 17.0 - 47.0 % 10/08 5:47 PM STORE SALES MANAGER [facility] Not Available Not Available 10/10/2024 17:16:09 10/08/19 25 10/08/2024 CBC W Auto Diffe renti al panel - Blood monocytes/10 0 leukocytes in blood by automated count 8.4 % low: 3%high : 11% Monoc yte % 8.4 3.0 - 11.0 % 10/08 5:47 PM [facility]ORE SALES MA[facility] Not Available Not Available 10/10/2024 17:16:09 10/08/19 25 10/08/2024 CBC W Auto Diffe renti al panel - Blood eosinophils/ 100 leukocytes in blood by automated count 2 % low: 0%high : 7% Eosin ophil % 2.0 0.0 - 7.0 % 10/08 5:47 PM [facility] Not Available Not Available 10/10/2024 17:16:09 10/08/19 25 10/08/2024 CBC W Auto Diffe renti al panel - Blood basophils/10 0 leukocytes in blood by automated count 0.5 % low: 0%high : 1.6% Basop hil % 0.5 0.0 - 1.6 % 10/08 5:47 PM STORE SALES MANAGER [facility] Not Available Not Available 10/10/2024 17:16:09 10/08/19 25 10/08/2024 CBC W Auto Diffe renti al panel - Blood immature granulocytes /100 leukocytes in blood by automated count 0.4 % low: 0%high : 1% Immat ure Granu locyt es % 0.4 0.0 - 1.0 % 10/08 5:47 PM STORE SALES MANAGER [facility] Not Available Not Available 10/10/2024 17:16:09 10/08/19 25 10/08/2024 CBC W Auto Diffe renti al panel - Blood neutrophils [#/volume] in blood by automated count 11.4 text: 1.60 - 7.50 x10e9/ L high Neutr ophil Absol caddo 11.40 (H) 1.60 - 7.50 x10E9 /L 10/08 5:47 PM [facility] SAL[facility] Not Available Not Available 10/10/2024 17:16:09 10/08/19 25 10/08/2024 CBC W Auto Diffe renti al panel - Blood lymphocytes [#/volume] in blood by automated count 2.59 text: 1.00 - 4.40 x10e9/ L Lymph ocyte Absol caddo 2.59 1.00 - 4.40 x10E9 /L 10/08 5:47 PM STORE SALES MANAGER [facility] Not Available Not Available 10/10/2024 17:16:09 10/08/1910/08/2024 CBC W Auto Diffe renti al panel - Blood monocytes [#/volume] in blood by automated count 1.32 text: 0.15 - 1.00 x10e9/ L high Monoc yte Absol caddo 1.32 (H) 0.15 - 1.00 x10E9 /L 10/08 5:47 PM STORE SALES MANAGER [facility] Not Available Not Available 10/10/2024 17:16:09 10/08/1910/08/2024 CBC W Auto Diffe renti al panel - Blood eosinophils [#/volume] in blood 0.32 text: 0.00 - 0.60 x10e9/ L Eosin ophil Absol caddo 0.32 0.00 - 0.60 x10E9 /L 10/08 5:47 PM STORE SALES MANAGER [facility] Not Available Not Available 10/10/2024 17:16:09 10/08/1910/08/2024 CBC W Auto Diffe renti al panel - Blood basophils [#/volume] in blood by automated count 0.08 text: 0.00 - 0.13 x10e9/ L Basop hil Absol caddo 0.08 0.00 - 0.13 x10E9 /L 10/08 5:47 PM [facility] Not Available Not Available [...] 7 - 26 mg/dL 10/08 6:08 PM STORE SALES MANAGER [facility] Not Available Not Available 10/10/2024 17:16:09 10/08/19 25 10/08/2024 Basic metab olic 1999 panel - Serum or Plasm a creatinine [mass/volume ] in serum or plasma 1.14 mg/dL low: 0.71mg /dLhig h: 1.16mg /dL Creat inine 1.14 0.71 - 1.16 mg/dL 10/08 6:08 PM [facility] Not Available Not Available 10/10/2024 17:16:09 10/08/19 25 10/08/2024 Basic metab olic 1999 panel - Serum or Plasm a sodium [moles/volum e] in serum or plasma 138 mmol/ L low: 136mmo l/Lhig h: 145mmo l/L Sodiu m 138 136 - 145 mmol/ L 10/08 6:08 PM [facility] Not Available Not Available 10/10/2024 17:16:09 10/08/1910/08/2024 Basic metab olic 1999 panel - Serum or Plasm a potassium [moles/volum e] in serum or plasma 3.9 mmol/ L low: 3.5mmo l/Lhig h: 4.5mmo l/L Potas sium 3.9 3.5 - 4.5 mmol/ L 10/08 6:08 PM [facility] Not Available Not Available 10/10/2024 17:16:09 10/08/1910/08/2024 Basic metab olic 1999 panel - Serum or Plasm a chloride [moles/volum e] in serum or plasma 104 mmol/ L low: 98mmol /Lhigh : 107mmo l/L Chlor kwame 104 98 - 107 mmol/ L 10/08 6:08 PM [facility] Not Available Not Available 10/10/2024 17:16:09 10/08/19 25 10/08/2024 Basic metab olic 2000 panel - Serum or Plasm a carbon dioxide, total [moles/volum e] in serum or plasma 24 mmol/ L low: 22mmol /Lhigh : 29mmol /L CO2 24 22 - 29 mmol/ L 10/08 6:08 PM [employer] [facility] SHAI Not Available Not Available 10/10/2024 17:16:09 10/08/19 25 10/08/2024 Basic metab olic 2000 panel - Serum or Plasm a glucose [mass/volume ] in serum or plasma 104 mg/dL low: 70mg/d Lhigh: 99mg/d L high Gluco se 104 (H) 70 - 99 mg/dL 10/08 6:08 PM [employer] [facility] Not Available Not Available 10/10/2024 17:16:09 10/08/19 25 10/08/2024 Basic metab olic 1999 panel - Serum or Plasm a calcium [moles/volum e] in serum or plasma 8.9 mg/dL low: 8.4mg/ dLhigh : 10.2mg /dL Calci um 8.9 8.4 - 10.2 mg/dL 10/08 6:08 PM [employer] [facility] SH[facility] Not Available Not Available 10/10/2024 17:16:09 10/08/19 25 10/08/2024 Basic metab olic 2000 panel - Serum or Plasm a anion gap 10 low: 6high: 16 Anion Gap 10 6 - 16 10/08 6:[address] [facility] Not Available Not Available 10/10/2024 17:16:09 10/08/19 25 10/08/2024 Basic metab olic 2000 panel - Serum or Plasm a urea nitrogen/cre atinine [mass ratio] in serum or plasma 14 low: 7high: 23 BUN/C reati nine Ratio 14 7 - 23 10/08 6:[address] [facility] Not Available Not Available 10/10/2024 17:16:09 10/08/19 25 10/08/2024 Basic metab olic 2000 panel - Serum or Plasm a osmolality calculated 287 text: 275 - 295 mOsm/k g Osmol aliemilia Duckworthu lated 287 275 - 295 mOsm/ kg 10/08 6:08 PM STORE SALES MANAGER [facility] Not Available Not Available 10/10/2024 17:16:09 10/08/19 25 10/08/2024 Basic metab olic 2000 panel - Serum or Plasm a glomerular filtration rate/1.73 sq M.predicted [volume rate/area] in serum, plasma or blood by creatinine-b ased formula (CKD-epi 2020) 80 text: >=90 mL/min /1.73 m2 low eGFR by CKD-E PI 80 (L) >=90 mL/mi n/1.7 3 m2 10/08 6:08 PM STORE SALES MANAGER [facility] Not Available [...] L) <10 <10 mg/dL 10/08 6:08 PM STORE SALES MANAGER [facility] Not Available Not Available 10/10/2024 17:16:09 10/08/19 25 10/08/2024 Piyush ol [Mass /volu me] in Serum or Plasm a ethanol [mass/volume ] in blood high: 0.01g/ dL Piyush ol Calcu lated (g/dL ) <0.01 0 <=0.0 10 g/dL 10/08 6:08 PM STORE SALES MANAGER [facility] Not Available Not Available 10/10/2024 17:16:09 10/08/1910/08/2024 Piyush ol [Mass /volu me] in Serum or Plasm a Unknown Analyte Ethano l Interp <10: None Detect ed. Depres emmett of ELECTRONIC SPECIALIST: >100 mg/dl Potent ially Critic al: >250 [...] <10: None Detec silvia. Depre ssion of ELECTRONIC SPECIALIST: >100 mg/dl Poten tiall y Criti rachael: [...] Normal Not Available Not Available 09/14 17:16:09 08/11/20 24 08/11/2024 XR, chest , 2 view No observ ation record ed. [address] [place] [address], [address], 08/11/2024 13:44:45 10/14/19 imagi ng/di agnos tic resul t No observ ation record ed. Not Available 2024 10:52:05 10/28/19 25 10/27/2024 XR, wrist , 3 or more view No observ ation record ed. [address], [place], [address], 10/27/2024 12:10:45 10/28/19 25 10/27/2024 XR, foot, 3 or more view No observ ation record ed. [address], [place], [address], 10/29/2024 14:11:02 10/28/19 25 10/27/2024 XR, wrist , 3 or more view No observ ation record ed. [facility] [address] [place] [address], [address], 10/27/2024 14:43:28 Result Notes None recorded. Problems Name Problem SNOMED Code Status Onset Date Resolution Date Notes Provider Name and Address Organization Details Recorded Time Chronic back pain 269438969 Active 2020 Not Available [facility] 4 22:38:43 Insomnia 678094997 Active 2021 Not Available [facility] 4 22:38:43 Colonosc opy declined 01308700019 9100 Active 2021 Not Available [facility] 4 22:38:43 Smoker 21746915 Active 2021 Not Available [facility] 4 22:38:43 Obesity 696430130 Active 2022 Not Available [facility] 4 22:38:43 Alcoholi sm 5799251 Completed 202211/13/2023 Removal Reason: in remissio n ROYA GARCIA Attn: Accounting ,[address] [place], [address] , [place] [facility] 4 15:30:10 Cervical radiculo mike 73692104 Active 2022 Not Available [facility] 4 22:38:43 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 ROYA GARCIA Attn: Accounting ,[address] [place], [address] , [place] [facility] 4 15:31:31 Chronic obstruct cheyanne pulmonar y disease 70061950 Active 2023 ROYA GARCIA Attn: Accounting ,[address] [facility], [place], [address] , [place] [facility] 4 12:40:00 Wheezing 60656181 Active 2024 ROYA GARCIA Attn: Accounting ,[address] [facility], [place], [address] , [place] [facility] 5 10:03:03 Swelling of bilatera l lower limbs 472107851 Active 2024 ROYA GARCIA Attn: Accounting ,[address] [facility], [place], [address] , [facility] 5 10:03:05 Essalbert l hyperten emmett 06061731 Active 2016 Not Available [facility]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
[2024-11-08 10:29] VITALS: RESP 17; O2SAT 97
[2024-11-08 10:32] VITALS: BP 128/88; PULSE 90; RESP 18; O2SAT 100
--- OUTSIDE RECORDS SUMMARY | 2024-11-08 10:38 | XMS_ITS | Clinical Summary ---
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 Warren MD - 10/09/2024 PROCEDURE: XR CHEST 1VW PORTABLE, DATE/TIME OF EXAM: 10/08/2024 5:23PM, LOCATION [facility] INDICATION: Trauma ADDITIONAL CLINICAL INFORMATION: Ordering Provider Reason For Exam: Technologist Note: Additional: COMPARISON: None. FINDINGS/IMPRESSION: No focal consolidation, pleural effusion, or pneumothorax. The cardiomediastinal silhouette is normal. No acute osseousabnormality. Degenerative changes of the thoracic spine. > Dictated by Caron Jimenes MD (president [place]) Maycol Levi MD have personally reviewed and interpreted this examination/study. > Interpreting Provider: Maycol Warren MD on 10/09/2024 8:02 AM Moncho Kramer MD DIAGNOSTIC IMAGING ORDERABLES from Last 3 Months Care Teams Licensed Electrician Relationship Specialty Start Date End Date Brianda Maciel PA-C [facility] [place] [address] PCP - General Physician Rn New Graduate 10/08/24
--- OUTSIDE RECORDS SUMMARY | 2024-11-08 10:38 | XMS_ITS | Clinical Summary ---
Author Organization [facility] Address [address] [place] [address] Care Team Providers Care Instrument Operator Name Role Phone Unavailable Primary Care Provider [...] Comments Blood Pressure 138/74 07/03/2016 4:04 PM LACQUER MIXER Pulse 80 09/02/2013 11:37 AM LACQUER MIXER Temperature - - Respiratory Rate - - Oxygen Saturation - - Inhaled Oxygen Concentration - - Weight 108.9 kg (240 lb) 07/03/2016 4:04 PM LACQUER MIXER Height 185.4 cm (6' 1 ) 07/03/2016 4:04 PM LACQUER MIXER Body Mass Index 31.66 07/03/2016 4:04 PM LACQUER MIXER Plan of Treatment Health Maintenance Due Date [...] Documents on File Type Date Recorded Patient [employer] Advance Directives and Livin g Will 06/23/2016 ADVANCE DIRECTIVE Advance Directives and Livin g Will 09/02/2013 ADVANCE DIRECTIVE Advance Directives and Livin g Will 07/01/2013 ADVANCE DIRECTIVE Advance Directives and Livin g Will 05/20/2013 ADVANCE DIRECTIVE Advance Directives and Livin g Will 04/08/2013 ADVANCE DIRECTIVE Advance Directives and Livin g Will 02/17/2013 POWER OF FREQUENCY CHECKER Advance Directives and Livin g Will 02/17/2013 POWER OF FREQUENCY CHECKER Advance Directives and Livin g Will 02/17/2013 ADVANCE DIRECTIVE
--- OUTSIDE RECORDS SUMMARY | 2024-11-08 10:38 | XMS_ITS | Encounter Summary ---
Author Organization [facility] Address [address] [place] [address] Care Team Providers Care Costume Maker Name Role Phone Brianda Maciel PA-C Primary Care Provider Encounter Details Date Type Department Care Team (Late st Contact Info) Description 10/08/2024 Ophth Exam [facility] - Ophthalmology [address] [place] [id number] Cristobal Cheatham MD [address] [place] [address] Social History Tobacco Use Types Packs/Day Years [...] on filedocumented in this encounter Care Teams Costume Maker Relationship Specialty Start Date End Date Brianda Maciel PA-C [address] [place] [phone] PCP - General Physician Janitor Caretaker 10/08/24 documented as of this encounter
[2024-11-08] MEDS: LIDOCAINE 5% PATCH 1 PATCH TRANSDERM (10:48)
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
[2024-11-08 11:01] LABS: Basophils Absolute Auto 0.1 K/mm3 (0.0-0.1); Basophils Percent Auto 0.5 % (0.2-1.2); Eosinophils Absolute Auto 0.1 K/mm3 (0-0.3); Eosinophils Percent Auto 1.1 % (0-4.4); Hematocrit 42.9 % (42.0-52.0); Immature Granulocyte Absolute 0.04 K/mm3 (0.00-0.031); Immature Granulocyte Percent A 0.3 % (0-0.5); Lymphocytes Absolute Auto 1.72 K/mm3 (0.9-3.2); Lymphocytes Percent Auto 14.5 % (18.3-44.2); Mean Corpuscular HGB Conc 32.6 g/dl (32-36); Mean Corpuscular Hemoglobin 31.4 pg (26-34); Mean Corpuscular Volume 96.2 fl (80-100); Mean Platelet Volume 10.2 fl (7.4-10.4); Monocytes Absolute Auto 1.4 K/mm3 (0.1-0.6); Monocytes Percent Auto 12.2 % (2.6-8.5); Neutrophils Absolute Auto 8.4 K/mm3 (1.3-6.7); Neutrophils Percent Auto 71.4 % (45.5-73.1); Platelet Count Result 262 k/mm3 (150-375); Red Blood Count 4.46 M/mm3 (4.6-6.20); Red Cell Distribution Width 13.8 % (11.5-14.5); White Blood Count 11.8 K/mm3 (4.5-10.0)
[2024-11-08 11:11] LABS: INR 0.9; Prothrombin Time 12.8 Seconds (11.1-14.7)
[2024-11-08 11:17] LABS: Alanine Aminotransferase 19 U/L (6-50); Albumin Level 4.6 g/dL (3.5-5.1); Alkaline Phosphatase 61 U/L (38-126); Anion Gap 10 mmol/L (4-12); Aspartate Amino Transferase 24 U/L (17-59); Bilirubin,Total 0.6 mg/dL (0.2-1.3); Blood Urea Nitrogen 10 mg/dL (9-20); Calcium 9.7 mg/dL (8.4-10.2); Carbon Dioxide 28 mmol/L (22-30); Chloride 100 mmol/L (98-107); Estimated CRCL calculation 140 ml/min; Estimated Glomerular Filt Rate > 60; Glucose 104 mg/dL (65-110); Sodium 138 mmol/L (137-145)
[2024-11-08 13:50] VITALS: BP 136/80; PULSE 100; RESP 16; O2SAT 100
--- NOTE | 2024-11-08 13:50 | PC.NURSE ---
Pt. reports anxiety and is requesting pharmacological intervention. Dr. Ash notified. Verbal order given. See MAR.
[2024-11-08] MEDS: ALPRAZolam (*CRX) 0.5 MG TABLET 1 MG PO (14:14)
== END 2024-11-08 14:17 | disposition short-term general hospital (02) ==
LOC: ANHED 10:37
PROVIDERS: Emergency Provider Student in an Organized Health Care Education/Training Program; PCP Physician Assistant
DX: S70.12XA Contusion of left thigh, initial encounter (principal); S70.11XA Contusion of right thigh, initial encounter; I10 Essential (primary) hypertension; J45.909 Unspecified asthma, uncomplicated; F17.210 Nicotine dependence, cigarettes, uncomplicated; V29.99XA Rider (driver) (passenger) of other motorcycle injured in unspecified traffic accident, initial encounter
CPT/HCPCS: 36415; 75635; 80053; 85025; 85610; 85730; 99285; A9270; Q9967

== ENCOUNTER 2025-01-12 10:21 | Outpatient (CLI) | payer MEDICAID, SELFPAY ==
--- OUTSIDE RECORDS SUMMARY | 2025-01-12 11:03 | XMS_ITS | Patient Health Record ---
Author Organization [facility] Address [address] [place] [address] Care Team Providers Care Marketing Analytics Analyst Name Role Phone Xander Phelan Primary Care Provider Reason For Referral No Information Medications Medication SIG (Take, Route, Frequency, Duration) Notes Start Date End Date Status Lidoderm 5 % apply 1 patch by transdermal route every day (May wear up to 12hours.) External ([facility]) 05/09/2012 Active Vicodin 5-500 MG take 1 tablet by ora l route every 12 hours as needed for pain Oral ([facility]) 05/09/2012 Active Flexeril 10 MG take 1 tablet (10MG) by oral route tid Oral ([facility]) 05/09/2012 Active Mobic 7.5 MG take 1 tablet (7.5MG ) by oral route 2 times every day Oral ([facility]) 05/09/2012 Active Qvar 80 MCG/ACT inhale 2 puff by inhalation route 2 times every day Inhalation ([facility]) 12/11/2011 Active ProAir HFA 108 (90 Base) MCG/ACT inhale 1 - 2 puff by inhalation route every 4 - 6 hours as needed Inhalation ([facility]) 12/11/2011 Active Lisinopril-hydroCHLOROt hiazide 10-12.5 MG take 1 tablet by oral route every day Oral ([facility]) 08/19/2012 Active Plan Of Treatment No Information
--- OUTSIDE RECORDS SUMMARY | 2025-01-12 11:03 | XMS_ITS | Data Portability ---
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 Lab HbA1c (hemoglobin A1c), blood 2023 024 [facility], [address] [place] [address], [address], [place], [address], 4 12:16:36 CMP, serum or plasma 2023 024 [facility], [address] [place] [address], [address], [place], [address], 4 23:07:38 CBC w/ auto diff 2023 024 [facility], [address] [place] [address], [address], [place], [address], 4 23:07:39 lipid panel, serum 2023 024 [facility], [address] [place] [address], [address], [place], [address], 4 23:07:37 albumin/cre atinine, mass ratio, urine 2023 024 [facility], [address], [address], [place], [address], 4 12:16:35 Referral cardiologis t referral 2023 024 [facility] Yeboahdarron Murog , [address], [address], [place], [address], 5 13:44:18 otolaryngol ogist referral 2023 024 [email or web address] Thiago Quentin, [address] [facility], [place], [address], 5 07:36:[address] referral 2023 024 [email or web address] Reji Garcia, [address] [facility], [address], [place], [address], 4 08:16:[address] referral 2023 024 [email or web address] [facility], [address] [place], [address], 4 08:16:17 Procedures None recorded. Surgeries None recorded. Imaging XR, foot [address] [facility], [address] [facility] [address], [place], [address], 5 07:55:54 XR, wrist, 3 or more view 2024 025 [email or web address], [address], [place], [address], 5 10:33:38 XR, chest, 2 view [address] (Rad), [address] [facility] [place], [address], 4 08:16:25 electrocard iogram [address] ([facility]), [address] [place] [address] [place], [address], 4 08:16:25 US, thyroid [address] ([facility]), [address] [facility] [place], [address], 4 08:16:25 CT, chest, w/o contrast [address] ([facility]), [address] [facility] [place], [address], 4 08:16:25 Medication Orders hydrocodone 5 mg-acetamin ophen 325 mg tablet 2024 025 [facility], [address] [place] [address], [address], 5 15:58:22 lisinopril 10 mg-hydrochl orothiazide 12.5 mg tablet 2023 024 [facility], [address] [place], [address], 4 13:00:32 lisinopril 20 mg tablet [address] [facility], [address] [place], [address], 4 15:28:22 Patient TargetsNo targets recorded. Patient Instructions Encounter Date Encounter Id Patient Instructions Last Modified By Organization Details Last Modified Time 11/13/2023 [id number] A healthy lifestyle: care instructions [email or web address] Not available 11/13/2023 15:32:21 06/30/2024 [id number] A healthy lifestyle: care instructions Not available 06/30/2024 12:30:05 10/13/2024 [id number] A healthy lifestyle: care instructions Not available 10/16/2024 10:02:07 Reason for Referral Slack Cooper Referral for C hronic obstructive pulmonary disease Referring Physician: Tami Maciel Adolescent Medicine Specialist, Encounter Date: 06/30/2024 Icing Maker Referral fo r Lesion of lip Referring Physician: General Satya Garcia, Encounter Date: 06/30/2024 Extended Insurance Clerk Referral for S kin lesion Referring Physician: Tami Maciel Adolescent Medicine Specialist, Encounter Date: 06/30/2024 Synthetic Soil Blocks Pulper Referral for Ch est pain Referring Physician: Tami Maciel Adolescent Medicine Specialist, Encounter Date: 06/30/2024 Results Created Date Observation Date Name Description Value Unit Range Abnormal Flag Note LastModifiedBy Organization Detail LastModifiedTime 06/30/2006/30/2024 LIPID PANEL cholesterol, total 223 mg/dL 100-19 9 above high normal Not Available [facility] Department [address] [place], [address], 06/30/2024 23:07:37 06/30/20 24 06/30/2024 LIPID PANEL triglyceride s 96 mg/dL 0-149 Not Available [facility] Department [address] [place], [address], 06/30/2024 23:07:37 06/30/20 24 06/30/2024 LIPID PANEL HDL cholesterol 72 mg/dL 40-999 Not Available [facility] Department [address] [place], [address], 06/30/2024 23:07:37 06/30/20 24 06/30/2024 LIPID PANEL VLDL cholesterol rachael 19 mg/dL 5-40 Not Available [facility] Department [address] [place], [address], 06/30/2024 23:07:37 06/30/20 24 06/30/2024 LIPID PANEL LDL chol calc ([facility]) 146 mg/dL 0-99 above high normal Not Available [facility] Department [address] [place] [address], [address], 06/30/2024 23:07:37 06/30/20 24 06/30/2024 COMP. METAB OLIC PANEL (14) glucose 82 mg/dL 70-99 Not Available [facility] Department [address] [place], [address], 06/30/2024 23:07:38 06/30/20 24 06/30/2024 COMP. METAB OLIC PANEL (14) BUN 12 mg/dL 6-24 Not Available [facility] [address] [place], [address], 06/30/2024 23:07:38 06/30/20 24 06/30/2024 COMP. METAB OLIC PANEL (14) creatinine 0.73 mg/dL 0.76-1 .27 below low normal Not Available [facility] Department [address] [place] [address], [address], 06/30/2024 23:07:38 06/30/20 24 06/30/2024 COMP. METAB OLIC PANEL (14) eGFR 113 >=60 Units for eGFR value s are mL/mi n/1.7 3 The eGFR Calcu latio n has not been valid ated for patie nts under the age of 18. If test resul ts are displ ayed for a patie nt under the age of 18, disre eduin that value . Not Available [facility] Department [address] [place], [address], 06/30/2024 23:07:38 06/30/20 24 06/30/2024 COMP. METAB OLIC PANEL (14) BUN/creatini ne ratio 17 9-20 Not Available [facility] Department [address] [place], [address], 06/30/2024 23:07:38 06/30/20 24 06/30/2024 COMP. METAB OLIC PANEL (14) sodium 140 mmol/ L 134-14 4 Not Available [facility] Department [address] [place] [address], [address], 06/30/2024 23:07:38 06/30/20 24 06/30/2024 COMP. METAB OLIC PANEL (14) potassium 4.9 mmol/ L 3.5-5. 2 Not Available [facility] Department [address] [place], [address], 06/30/2024 23:07:38 06/30/20 24 06/30/2024 COMP. METAB OLIC PANEL (14) chloride 103 mmol/ L 96-106 Not Available [facility] Department [address] [place] [address], [address], 06/30/2024 23:07:38 06/30/20 24 06/30/2024 COMP. METAB OLIC PANEL (14) carbon dioxide, total 25 mmol/ L 20-29 Not Available [facility] Department [address] [place], [address], 06/30/2024 23:07:38 06/30/20 24 06/30/2024 COMP. METAB OLIC PANEL (14) calcium 10.0 mg/dL 8.7-10 .2 Not Available [facility] Department [address] [place], [address], 06/30/2024 23:07:38 06/30/20 24 06/30/2024 COMP. METAB OLIC PANEL (14) protein, total 7.7 g/dL 6.0-8. 5 Not Available [facility] Department [address] [place], [address], 06/30/2024 23:07:38 06/30/20 24 06/30/2024 COMP. METAB OLIC PANEL (14) albumin 4.9 g/dL 4.1-5. 1 Not Available [facility] Department [address] [place] [address], [address], 06/30/2024 23:07:38 06/30/20 24 06/30/2024 COMP. METAB OLIC PANEL (14) globulin, total 2.8 g/dL 1.5-4. 5 Not Available [facility] Department [address] [place], [address], 06/30/2024 23:07:38 06/30/20 24 06/30/2024 COMP. METAB OLIC PANEL (14) A/G ratio 1.7 1.2-2. 2 Not Available [facility] Department [address] [place], [address], 06/30/2024 23:07:38 06/30/20 24 06/30/2024 COMP. METAB OLIC PANEL (14) bilirubin, total 0.3 mg/dL 0.0-1. 2 Not Available [facility] Department [address] [place], [address], 06/30/2024 23:07:38 06/30/20 24 06/30/2024 COMP. METAB OLIC PANEL (14) alkaline phosphatase 64 IU/L 44-121 Not Available [facility] Department [address] [place], [address], 06/30/2024 23:07:38 06/30/20 24 06/30/2024 COMP. METAB OLIC PANEL (14) AST (SGOT) 16 IU/L 0-40 Not Available [facility] Department [address] [place], [address], 06/30/2024 23:07:38 06/30/20 24 06/30/2024 COMP. METAB OLIC PANEL (14) ALT (SGPT) 26 IU/L 0-44 Not Available [facility] Department [address] [place], [address], 06/30/2024 23:07:38 06/30/20 24 06/30/2024 CBC WITH DIFFE RENTI AL/PL ATELE T WBC 8.4 x10e3 /uL 3.4-10 .8 Not Available [facility] Department [address] [place], [address], 06/30/2024 23:07:39 06/30/20 24 06/30/2024 CBC WITH DIFFE RENTI AL/PL ATELE T RBC 4.87 x10e6 /uL 4.14-5 .80 Not Available [facility] Department [address] [place], [address], 06/30/2024 23:07:39 06/30/20 24 06/30/2024 CBC WITH DIFFE RENTI AL/PL ATELE T hemoglobin 15.3 g/dL 13.0-1 7.7 Not Available [facility] Department [address] [place], [address], 06/30/2024 23:07:39 06/30/20 24 06/30/2024 CBC WITH DIFFE RENTI AL/PL ATELE T hematocrit 45.9 % 37.5-5 1.0 Not Available [facility] Department [address] [place], [address], 06/30/2024 23:07:39 06/30/20 24 06/30/2024 CBC WITH DIFFE RENTI AL/PL ATELE T MCV 94 fL 79-97 Not Available [facility] Department [address] [place], [address], 06/30/2024 23:07:39 06/30/20 24 06/30/2024 CBC WITH DIFFE RENTI AL/PL ATELE T MCH 31.4 pg 26.6-3 3.0 Not Available [facility] Department [address] [place], [address], 06/30/2024 23:07:39 06/30/20 24 06/30/2024 CBC WITH DIFFE RENTI AL/PL ATELE T MCHC 33.3 g/dL 31.5-3 5.7 Not Available [facility] Department [address] [place], [address], 06/30/2024 23:07:39 06/30/20 24 06/30/2024 CBC WITH DIFFE RENTI AL/PL ATELE T RDW 13.2 % 11.5-1 4.5 Not Available [facility] Department [address] [place], [address], 06/30/2024 23:07:39 06/30/20 24 06/30/2024 CBC WITH DIFFE RENTI AL/PL ATELE T platelets 312 x10e3 /uL 150-45 0 Not Available [facility] Department [address] [place], [address], 06/30/2024 23:07:39 06/30/20 24 06/30/2024 CBC WITH DIFFE RENTI AL/PL ATELE T neutrophils 61 % notest b. Not Available [facility] Department [address] [place], [address], 06/30/2024 23:07:39 06/30/20 24 06/30/2024 CBC WITH DIFFE RENTI AL/PL ATELE T lymphs 24 % notest b. Not Available [facility] Department [address] [place] [address], [address], 06/30/2024 23:07:39 06/30/20 24 06/30/2024 CBC WITH DIFFE RENTI AL/PL ATELE T monocytes 11 % notest b. Not Available [facility] Department [address] [place], [address], 06/30/2024 23:07:39 06/30/20 24 06/30/2024 CBC WITH DIFFE RENTI AL/PL ATELE T eos 2 % notest b. Not Available [facility] Department [address] [place], [address], 06/30/2024 23:07:39 06/30/20 24 06/30/2024 CBC WITH DIFFE RENTI AL/PL ATELE T basos 1 % notest b. Not Available [facility] Department [address] [place], [address], 06/30/2024 23:07:39 06/30/20 24 06/30/2024 CBC WITH DIFFE RENTI AL/PL ATELE T neutrophils (absolute) 5.1 x10e3 /uL 1.4-7. 0 Not Available [facility] Department [address] [place], [address], 06/30/2024 23:07:39 06/30/20 24 06/30/2024 CBC WITH DIFFE RENTI AL/PL ATELE T lymphs (absolute) 2.0 x10e3 /uL 0.7-3. 1 Not Available [facility] Department [address] [place], [address], 06/30/2024 23:07:39 06/30/20 24 06/30/2024 CBC WITH DIFFE RENTI AL/PL ATELE T monocytes(ab solute) 0.9 x10e3 /uL 0.1-0. 9 Not Available [facility] Department [address] [place], [address], 06/30/2024 23:07:39 06/30/20 24 06/30/2024 CBC WITH DIFFE RENTI AL/PL ATELE T eos (absolute) 0.2 x10e3 /uL 0.0-0. 4 Not Available [facility] Department [address] [place], [address], 06/30/2024 23:07:39 06/30/20 24 06/30/2024 CBC WITH DIFFE RENTI AL/PL ATELE T baso (absolute) 0.1 x10e3 /uL 0.0-0. 2 Not Available [facility] Department [address] [place], [address], 06/30/2024 23:07:39 06/30/20 24 06/30/2024 CBC WITH DIFFE RENTI AL/PL ATELE T immature granulocytes 0.4 % notest b. Not Available [facility] Department [address] [place], [address], 06/30/2024 23:07:39 06/30/20 24 06/30/2024 CBC WITH DIFFE RENTI AL/PL ATELE T immature grans (abs) 0.0 x10e3 /uL 0.0-0. 1 Not Available [facility] Department [address] [place], [address], 06/30/2024 23:07:39 06/30/20 24 06/30/2024 CBC WITH DIFFE RENTI AL/PL ATELE T NRBC 0 % 0-0 Not Available [facility] Department [address] [place], [address], 06/30/2024 23:07:39 06/30/20 24 07/01/2024 ALBUM IN/CR EATIN INE RATIO ,URIN E creatinine, urine 30.9 mg/dL notest ab. Not Available [facility] ([facility]) [address] [place], [address], 07/01/2024 12:16:35 06/30/20 24 07/01/2024 ALBUM IN/CR EATIN INE RATIO ,URIN E albumin, urine <3.0 ug/mL notest ab. Not Available [facility] ([facility]) [address] [place], [address], 07/01/2024 12:16:35 06/30/20 24 07/01/2024 ALBUM IN/CR EATIN INE RATIO ,URIN E alb/creat ratio <10 Haylee l: 0 - 29 Moder ately incre ased: 30 - 300 Sever brennan incre ased: >300 Not Available [facility] ([facility]) [address] [place], [address], 07/01/2024 12:16:35 06/30/20 24 07/01/2024 HEMOG LOBIN A1C hemoglobin A1C 5.8 % 4.8-5. 6 above high normal Predi abete s: 5.7 - 6.4 Diabe semaj: >6.4 Glyce darius contr ol for adult s with diabe semaj: <7.0 Not Available [facility] ([facility]) [address] [facility], [place], [address], 07/01/2024 12:16:36 10/08/19 25 10/08/2024 Blood type and Indir ect antib em scree n panel - Blood blood group antibody screen [presence] in serum or plasma NEG Antib em Scree n NEG 10/08 6:15 PM [facility] Not Available Not Available 10/10/2024 17:16:09 10/08/19 25 10/08/2024 Blood type and Indir ect antib em scree n panel - Blood ABO and Rh group [type] in blood A POS ABO Rh A POS 10/08 6:15 PM [facility] Not Available Not Available 10/10/2024 17:16:09 10/08/19 25 10/08/2024 CBC W Auto Diffe renti al panel - Blood leukocytes [#/volume] in blood by automated count 15.8 text: 4.0 - 10.7 x10e9/ L high WBC 15.8 (H) 4.0 - 10.7 x10E9 /L 10/08 5:47 PM [facility] Not Available Not Available 10/10/2024 17:16:09 10/08/19 25 10/08/2024 CBC W Auto Diffe renti al panel - Blood erythrocytes [#/volume] in blood by automated count 4.12 text: 4.30 - 5.80 x10e12 /L low RBC Count 4.12 (L) 4.30 - 5.80 x10E1 2/L 10/08 5:47 PM [facility] Not Available Not Available 10/10/2024 17:16:09 10/08/19 25 10/08/2024 CBC W Auto Diffe renti al panel - Blood hemoglobin [mass/volume ] in blood 12.8 g/dL low: 13.3g/ dLhigh : 17.5g/ dL low Hemog lobin 12.8 (L) 13.3 - 17.5 g/dL 10/08 5:47 PM [facility] Not Available Not Available 10/10/2024 17:16:09 10/08/19 25 10/08/2024 CBC W Auto Diffe royal al panel - Blood hematocrit [volume fraction] of blood by automated count 37.6 % low: 38.7%h igh: 51.1% low Hemat ocrit 37.6 (L) 38.7 - 51.1 % 10/08 5:47 PM [facility] Not Available Not Available 10/10/2024 17:16:09 10/08/1910/08/2024 CBC W Auto Diffe royal al panel - Blood MCV [entitic volume] by automated count 91.3 fL low: 80fLhi gh: 98fL MCV 91.3 80.0 - 98.0 fL 10/08 5:47 PM [facility] Not Available Not Available 10/10/2024 17:16:09 10/08/1910/08/2024 CBC W Auto Diffe royal al panel - Blood MCH [entitic mass] by automated count 31.1 pg low: 26.7pg high: 33.6pg MCH 31.1 26.7 - 33.6 pg 10/08 5:47 PM [facility] Not Available Not Available 10/10/2024 17:16:09 10/08/19 25 10/08/2024 CBC W Auto Diffe royal al panel - Blood MCHC [mass/volume ] by automated count 34 g/dL low: 31.7g/ dLhigh : 36.3g/ dL MCHC 34.0 31.7 - 36.3 g/dL 10/08 5:47 PM [facility] Not Available Not Available 10/10/2024 17:16:09 10/08/1910/08/2024 CBC W Auto Diffe royal al panel - Blood erythrocyte distribution width [ratio] by automated count 13.6 % low: 11.3%h igh: 14.8% RDW-C V 13.6 11.3 - 14.8 % 10/08 5:47 PM [facility] Not Available Not Available 10/10/2024 17:16:09 10/08/19 25 10/08/2024 CBC W Auto Diffe renti al panel - Blood platelets [#/volume] in blood by automated count 278 text: 150 - 420 x10e9/ L Plate let Count 278 150 - 420 x10E9 /L 10/08 5:47 PM [facility] Not Available Not Available 10/10/2024 17:16:09 10/08/1910/08/2024 CBC W Auto Diffe renti al panel - Blood platelet mean volume [entitic volume] in blood by automated count 10.4 fL low: 7.8fLh igh: 11.4fL MPV 10.4 7.8 - 11.4 fL 10/08 5:47 PM [facility] Not Available Not Available 10/10/2024 17:16:09 10/08/19 25 10/08/2024 CBC W Auto Diffe renti al panel - Blood neutrophils/ 100 leukocytes in blood by automated count 72.3 % low: 41%hig h: 74% Neutr ophil % 72.3 41.0 - 74.0 % 10/08 5:47 PM [facility] Not Available Not Available 10/10/2024 17:16:09 10/08/19 25 10/08/2024 CBC W Auto Diffe renti al panel - Blood lymphocytes/ 100 leukocytes in blood by automated count 16.4 % low: 17%hig h: 47% low Lymph ocyte % 16.4 (L) 17.0 - 47.0 % 10/08 5:47 PM [facility] Not Available Not Available 10/10/2024 17:16:09 10/08/19 25 10/08/2024 CBC W Auto Diffe renti al panel - Blood monocytes/10 0 leukocytes in blood by automated count 8.4 % low: 3%high : 11% Monoc yte % 8.4 3.0 - 11.0 % 10/08 5:47 PM [facility] Not Available Not Available 10/10/2024 17:16:09 10/08/19 25 10/08/2024 CBC W Auto Diffe renti al panel - Blood eosinophils/ 100 leukocytes in blood by automated count 2 % low: 0%high : 7% Eosin ophil % 2.0 0.0 - 7.0 % 10/08 5:47 PM [facility] Not Available Not Available 10/10/2024 17:16:09 10/08/19 25 10/08/2024 CBC W Auto Diffe renti al panel - Blood basophils/10 0 leukocytes in blood by automated count 0.5 % low: 0%high : 1.6% Basop hil % 0.5 0.0 - 1.6 % 10/08 5:47 PM [facility] Not Available Not Available 10/10/2024 17:16:09 10/08/19 25 10/08/2024 CBC W Auto Diffe renti al panel - Blood immature granulocytes /100 leukocytes in blood by automated count 0.4 % low: 0%high : 1% Immat ure Granu locyt es % 0.4 0.0 - 1.0 % 10/08 5:47 PM [facility] Not Available Not Available 10/10/2024 17:16:09 10/08/19 25 10/08/2024 CBC W Auto Diffe renti al panel - Blood neutrophils [#/volume] in blood by automated count 11.4 text: 1.60 - 7.50 x10e9/ L high Neutr ophil Absol [place] 11.40 (H) 1.60 - 7.50 x10E9 /L 10/08 5:47 PM [facility] Not Available Not Available 10/10/2024 17:16:09 10/08/19 25 10/08/2024 CBC W Auto Diffe renti al panel - Blood lymphocytes [#/volume] in blood by automated count 2.59 text: 1.00 - 4.40 x10e9/ L Lymph ocyte Absol [place] 2.59 1.00 - 4.40 x10E9 /L 10/08 5:47 PM [facility] Not Available Not Available 10/10/2024 17:16:09 10/08/1910/08/2024 CBC W Auto Diffe renti al panel - Blood monocytes [#/volume] in blood by automated count 1.32 text: 0.15 - 1.00 x10e9/ L high Monoc yte Absol [place] 1.32 (H) 0.15 - 1.00 x10E9 /L 10/08 5:47 PM [facility] Not Available Not Available 10/10/2024 17:16:09 10/08/1910/08/2024 CBC W Auto Diffe renti al panel - Blood eosinophils [#/volume] in blood 0.32 text: 0.00 - 0.60 x10e9/ L Eosin ophil Absol [place] 0.32 0.00 - 0.60 x10E9 /L 10/08 5:47 PM [facility] Not Available Not Available 10/10/2024 17:16:09 10/08/19 25 10/08/2024 CBC W Auto Diffe renti al panel - Blood basophils [#/volume] in blood by automated count 0.08 text: 0.00 - 0.13 x10e9/ L Basop hil Absol [place] 0.08 0.00 - 0.13 x10E9 /L 10/08 5:47 PM [facility] Not Available Not Available 10/10/2024 17:16:09 10/08/19 [...] 7 - 26 mg/dL 10/08 6:08 PM [facility] Not Available Not Available 10/10/2024 17:16:09 10/08/19 25 10/08/2024 Basic metab olic 1999 panel - Serum or Plasm a creatinine [mass/volume ] in serum or plasma 1.14 mg/dL low: 0.71mg /dLhig h: 1.16mg /dL Creat inine 1.14 0.71 - 1.16 mg/dL 10/08 6:08 PM [facility] Not Available Not Available 10/10/2024 17:16:09 10/08/19 25 10/08/2024 Basic metab olic 1999 panel - Serum or Plasm a sodium [moles/volum e] in serum or plasma 138 mmol/ L low: 136mmo l/Lhig h: 145mmo l/L Sodiu m 138 136 - 145 mmol/ L 10/08 6:08 PM [facility] Not Available Not Available 10/10/2024 17:16:09 10/08/19 25 10/08/2024 Basic metab olic 1999 panel - Serum or Plasm a potassium [moles/volum e] in serum or plasma 3.9 mmol/ L low: 3.5mmo l/Lhig h: 4.5mmo l/L Potas sium 3.9 3.5 - 4.5 mmol/ L 10/08 6:08 PM [facility] Not Available Not Available 10/10/2024 17:16:09 10/08/1910/08/2024 Basic metab olic 1999 panel - Serum or Plasm a chloride [moles/volum e] in serum or plasma 104 mmol/ L low: 98mmol /Lhigh : 107mmo l/L Chlor kwame 104 98 - 107 mmol/ L 10/08 6:08 PM [facility] Not Available Not Available 10/10/2024 17:16:09 10/08/19 25 10/08/2024 Basic metab olic 2000 panel - Serum or Plasm a carbon dioxide, total [moles/volum e] in serum or plasma 24 mmol/ L low: 22mmol /Lhigh : 29mmol /L CO2 24 22 - 29 mmol/ L 10/08 6:08 PM [facility] Not Available Not Available 10/10/2024 17:16:09 10/08/19 25 10/08/2024 Basic metab olic 2000 panel - Serum or Plasm a glucose [mass/volume ] in serum or plasma 104 mg/dL low: 70mg/d Lhigh: 99mg/d L high Gluco se 104 (H) 70 - 99 mg/dL 10/08 6:08 PM [facility] Not Available Not Available 10/10/2024 17:16:09 10/08/19 25 10/08/2024 Basic metab olic 1999 panel - Serum or Plasm a calcium [moles/volum e] in serum or plasma 8.9 mg/dL low: 8.4mg/ dLhigh : 10.2mg /dL Calci um 8.9 8.4 - 10.2 mg/dL 10/08 6:08 PM [facility] Not Available Not Available 10/10/2024 17:16:09 10/08/19 25 10/08/2024 Basic metab olic 2000 panel - Serum or Plasm a anion gap 10 low: 6high: 16 Anion Gap 10 6 - 16 10/08 6:08 PM [facility] Not Available Not Available 10/10/2024 17:16:09 10/08/19 25 10/08/2024 Basic metab olic 2000 panel - Serum or Plasm a urea nitrogen/cre atinine [mass ratio] in serum or plasma 14 low: 7high: 23 BUN/C reati nine Ratio 14 7 - 23 10/08 6:08 PM [facility] Not Available Not Available 10/10/2024 17:16:09 10/08/19 25 10/08/2024 Basic metab olic 2000 panel - Serum or Plasm a osmolality calculated 287 text: 275 - 295 mOsm/k g Osmol aliemilia Duckworthu lated 287 275 - 295 mOsm/ kg 10/08 6:08 PM [facility] Not Available Not Available 10/10/2024 17:16:09 10/08/19 25 10/08/2024 Basic metab olic 2000 panel - Serum or Plasm a glomerular filtration rate/1.73 sq M.predicted [volume rate/area] in serum, plasma or blood by creatinine-b ased formula (CKD-epi 2020) 80 text: >=90 mL/min /1.73 m2 low eGFR by CKD-E PI 80 (L) >=90 mL/mi n/1.7 3 m2 10/08 6:08 PM [facility] Not Available Not Available 10/10/2024 17:16:09 10/08/1910/08/2024 Basic metab olic 1999 panel - Serum or Plasm a interpretati on and review of laboratory results Abnorm al Not Available Not Available 17:16:09 10/08/1910/08/2024 Piyush ol [Mass /volu me] in Serum or Plasm a ethanol [mass/volume ] in serum or plasma high: 10mg/d L Piyush ol (mg/d L) <10 <10 mg/dL 10/08 6:08 PM [facility] Not Available Not Available 10/10/2024 17:16:09 10/08/19 25 10/08/2024 Piyush ol [Mass /volu me] in Serum or Plasm a ethanol [mass/volume ] in blood high: 0.01g/ dL Piyush ol Calcu lated (g/dL ) <0.01 0 <=0.0 10 g/dL 10/08 6:08 PM [facility] [employer] [facility] Not Available Not Available 10/10/2024 17:16:09 10/08/1910/08/2024 Piyush ol [Mass /volu me] in Serum or Plasm a Unknown Analyte Ethano l Interp <10: None Detect ed. Depres emmett of FORM DRAFTER: >100 mg/dl Potent ially Critic al: >250 [...] <10: None Detec silvia. Depre ssion of FORM DRAFTER: >100 mg/dl Poten tiall y Criti rachael: [...] ses. Not Available Not Available 10/10/2024 17:16:09 10/08/1910/08/2024 Piyush ol [Mass /volu me] in Serum or Plasm a interpretati on and review of laboratory results Normal Not Available Not Available 09/14 17:16:09 11/09/19 25 11/08/2024 Blood type and Indir ect antib em scree n panel - Blood blood group antibody screen [presence] in serum or plasma NEG Antib em Scree n NEG 11/08 6:01 PM [facility] Not Available Not Available 11/25/2024 10:16:58 11/09/19 25 11/08/2024 Blood type and Indir ect antib em scree n panel - Blood ABO and Rh group [type] in blood A POS ABO Rh A POS 11/08 6:01 PM T [facility] Not Available Not Available 11/25/2024 10:16:58 11/09/19 25 11/08/2024 Compr ehens cheyanne metab olic 1999 panel - Serum or Plasm a urea nitrogen [mass/volume ] in serum or plasma 8 mg/dL low: 7mg/dL high: 26mg/d L BUN 8 7 - 26 mg/dL 11/08 5:54 PM CDT [facility] Not Available Not Available 11/25/2024 10:16:58 11/09/19 25 11/08/2024 Compr ehens cheyanne metab olic 1999 panel - Serum or Plasm a creatinine [mass/volume ] in serum or plasma 0.62 mg/dL low: 0.71mg /dLhig h: 1.16mg /dL low Creat inine 0.62 (L) 0.71 - 1.16 mg/dL 11/08 5:54 PM CDT [facility] Not Available Not Available 11/25/2024 10:16:58 11/09/19 25 11/08/2024 Compr ehens cheyanne metab olic 1999 panel - Serum or Plasm a sodium [moles/volum e] in serum or plasma 139 mmol/ L low: 136mmo l/Lhig h: 145mmo l/L Sodiu m 139 136 - 145 mmol/ L 11/08 5:54 PM CDT [facility] Not Available Not Available 11/25/2024 10:16:58 11/09/19 25 11/08/2024 Compr ehens cheyanne metab olic 1999 panel - Serum or Plasm a potassium [moles/volum e] in serum or plasma 3.7 mmol/ L low: 3.5mmo l/Lhig h: 4.5mmo l/L Potas sium 3.7 3.5 - 4.5 mmol/ L 11/08 5:54 PM CDT [facility] Not Available Not Available 11/25/2024 10:16:58 11/09/19 25 11/08/2024 Compr ehens cheyanne metab olic 1999 panel - Serum or Plasm a chloride [moles/volum e] in serum or plasma 104 mmol/ L low: 98mmol /Lhigh : 107mmo l/L Chlor kwame 104 98 - 107 mmol/ L 11/08 5:54 PM CDT [facility] Not Available Not Available 11/25/2024 10:16:58 11/09/19 25 11/08/2024 Compr ehens cheyanne metab olic 1999 panel - Serum or Plasm a carbon dioxide, total [moles/volum e] in serum or plasma 23 mmol/ L low: 22mmol /Lhigh : 29mmol /L CO2 23 22 - 29 mmol/ L 11/08 5:54 PM CDT [facility] Not Available Not Available 11/25/2024 10:16:58 11/09/19 25 11/08/2024 Compr ehens cheyanne metab olic 1999 panel - Serum or Plasm a glucose [mass/volume ] in serum or plasma 87 mg/dL low: 70mg/d Lhigh: 99mg/d L Gluco se 87 70 - 99 mg/dL 11/08 5:54 PM CDT [facility] Not Available Not Available 11/25/2024 10:16:58 11/09/19 25 11/08/2024 Compr ehens cheyanne metab olic 2000 panel - Serum or Plasm a calcium [moles/volum e] in serum or plasma 9.4 mg/dL low: 8.4mg/ dLhigh : 10.2mg /dL Calci um 9.4 8.4 - 10.2 mg/dL 11/08 5:54 PM CDT [facility] Not Available Not Available 11/25/2024 10:16:58 11/09/19 25 11/08/2024 Compr ehens cheyanne metab olic 2000 panel - Serum or Plasm a protein [mass/volume ] in serum or plasma 7.8 g/dL low: 6g/dLh igh: 8.3g/d L Prote in Total 7.8 6.0 - 8.3 g/dL 11/08 5:54 PM CDT [facility] Not Available Not Available 11/25/2024 10:16:58 11/09/19 25 11/08/2024 Compr [employer] cheyanne metab olic 2000 panel - Serum or Plasm a albumin [mass/volume ] in serum or plasma by bromocresol green (bcg) dye binding method 3.9 g/dL low: 3.4g/d Lhigh: 5g/dL Album in 3.9 3.4 - 5.0 g/dL 11/08 5:54 PM CDT [facility] Not Available Not Available 11/25/2024 10:16:58 11/09/19 25 11/08/2024 Compr ehens cheyanne metab olic 2000 panel - Serum or Plasm a bilirubin.to wili [mass/volume ] in serum or plasma 0.5 mg/dL low: 0.2mg/ dLhigh : 1.2mg/ dL Bilir ubin Total 0.5 0.2 - 1.2 mg/dL 11/08 5:54 PM CDT [facility] Not Available Not Available 11/25/2024 10:16:58 11/09/19 25 11/08/2024 Compr ehens cheyanne metab olic 1999 panel - Serum or Plasm a alkaline phosphatase [enzymatic activity/vol ume] in serum or plasma 61 U/L low: 40U/Lh igh: 150U/L Alkal ine Phosp hatas e 61 40 - 150 U/L 11/08 5:54 PM CDT [facility] Not Available Not Available 11/25/2024 10:16:58 11/09/19 25 11/08/2024 Compr ehens cheyanne metab olic 1999 panel - Serum or Plasm a alanine aminotransfe rase [enzymatic activity/vol ume] in serum or plasma by no addition of P-5'-P 14 U/L low: 5U/Lhi gh: 55U/L ALT 14 5 - 55 U/L 11/08 5:54 PM CDT [facility] Not Available Not Available 11/25/2024 10:16:58 11/09/19 25 11/08/2024 Compr ehens cheyanne metab olic 1999 panel - Serum or Plasm a aspartate aminotransfe rase [enzymatic activity/vol ume] in serum or plasma 14 U/L low: 5U/Lhi gh: 34U/L AST 14 5 - 34 U/L 11/08 5:54 PM CDT [facility] Not Available Not Available 11/25/2024 10:16:58 11/09/19 25 11/08/2024 Compr ehens cheyanne metab olic 1999 panel - Serum or Plasm a anion gap 12 low: 6high: 16 Anion Gap 12 6 - 16 11/08 5:54 PM CDT [facility] Not Available Not Available 11/25/2024 10:16:58 11/09/19 25 11/08/2024 Compr ehens cheyanne metab olic 2000 panel - Serum or Plasm a urea nitrogen/cre atinine [mass ratio] in serum or plasma 13 low: 7high: 23 BUN/C reati nine Ratio 13 7 - 23 11/08 5:54 PM CDT [facility] [employer] [facility] Not Available Not Available 11/25/2024 10:16:58 11/09/19 25 11/08/2024 Compr ehens cheyanne metab olic 2000 panel - Serum or Plasm a osmolality calculated 286 text: 275 - 295 mOsm/k g Osmol ality Calcu lated 286 275 - 295 mOsm/ kg 11/08 5:54 PM CDT [facility] [employer] [facility] Not Available Not Available 11/25/2024 10:16:58 11/09/1911/08/2024 Compr ehens cheyanne metab olic 1999 panel - Serum or Plasm a albumin/glob ulin ratio 1 low: 1.1hig h: 2.3 low Album in/Gl obuli n Ratio 1.0 (L) 1.1 - 2.3 11/08 5:54 PM T [facility] [employer] [facility] Not Available Not Available 11/25/2024 10:16:58 11/09/1911/08/2024 Compr ehens cheyanne metab olic 2000 panel - Serum or Plasm a glomerular filtration rate [volume rate/area] in serum, plasma or blood by creatinine-b ased formula (CKD-epi 2020)/1.73 sq M text: >=90 mL/min /1.73 m2 eGFR by CKD-E PI >90 >=90 mL/mi n/1.7 3 m2 11/08 5:54 PM T [facility] [employer] [facility] Not Available Not Available 11/25/2024 10:16:58 11/09/1911/08/2024 Compr ehens cheyanne metab olic 2000 panel - Serum or Plasm a interpretati on and review of laboratory results Abnorm al Not Available Not Available 10:16:58 11/09/1911/08/2024 CBC W Auto Diffe renti al panel - Blood leukocytes [#/volume] in blood by automated count 11.6 text: 4.0 - 10.7 x10e9/ L high WBC 11.6 (H) 4.0 - 10.7 x10E9 /L 11/08 5:35 PM CDT [facility] Not Available Not Available 11/25/2024 10:16:58 11/09/19 25 11/08/2024 CBC W Auto Diffe renti al panel - Blood erythrocytes [#/volume] in blood by automated count 4.34 text: 4.30 - 5.80 x10e12 /L RBC Count 4.34 4.30 - 5.80 x10E1 2/L 11/08 5:35 PM CDT [facility] Not Available Not Available 11/25/2024 10:16:58 11/09/1911/08/2024 CBC W Auto Diffe royal al panel - Blood hemoglobin [mass/volume ] in blood 13.6 g/dL low: 13.3g/ dLhigh : 17.5g/ dL Hemog lobin 13.6 13.3 - 17.5 g/dL 11/08 5:35 PM [facility] Not Available 11/25/2024 10:16:58 11/09/19 25 11/08/2024 CBC W Auto Diffe royal al panel - Blood hematocrit [volume fraction] of blood by automated count 40.3 % low: 38.7%h igh: 51.1% Hemat ocrit 40.3 38.7 - 51.1 % 11/08 5:35 PM [facility] Available Not Available 11/25/2024 10:16:58 11/09/19 25 11/08/2024 CBC W Auto Diffe hanhti al panel - Blood MCV [entitic mean volume] in red blood cells by automated count 92.9 fL low: 80fLhi gh: 98fL MCV 92.9 80.0 - 98.0 fL 11/08 5:35 PM CDT [facility] Not Available Not Available 11/25/2024 10:16:58 11/09/19 25 11/08/2024 CBC W Auto Diffe hanhti al panel - Blood MCH [entitic mass] by automated count 31.3 pg low: 26.7pg high: 33.6pg MCH 31.3 26.7 - 33.6 pg 11/08 5:35 PM CDT [facility] Not Available Not Available 11/25/2024 10:16:58 11/09/19 25 11/08/2024 CBC W Auto Diffe renti al panel - Blood MCHC [entitic mass/volume] in red blood cells by automated count 33.7 g/dL low: 31.7g/ dLhigh : 36.3g/ dL MCHC 33.7 31.7 - 36.3 g/dL 11/08 5:35 PM CDT [facility] Not Available Not Available 11/25/2024 10:16:58 11/09/1911/08/2024 CBC W Auto Diffe renti al panel - Blood erythrocyte [distwidth] in red blood cells by automated count 13.7 % low: 11.3%h igh: 14.8% RDW-C V 13.7 11.3 - 14.8 % 11/08 5:35 PM [facility] Not Available 11/25/2024 10:16:58 11/09/19 25 11/08/2024 CBC W Auto Diffe renti al panel - Blood platelets [#/volume] in blood by automated count 257 text: 150 - 420 x10e9/ L Plate let Count 257 150 - 420 x10E9 /L 11/08 5:35 PM [facility] Not Available 11/25/2024 10:16:58 11/09/19 25 11/08/2024 CBC W Auto Diffe renti al panel - Blood platelet [entitic mean volume] in blood by automated count 10.4 fL low: 7.8fLh igh: 11.4fL MPV 10.4 7.8 - 11.4 fL 11/08 5:35 PM CDT [facility] Not Available Not Available 11/25/2024 10:16:58 11/09/19 25 11/08/2024 CBC W Auto Diffe renti al panel - Blood neutrophils/ leukocytes in blood by automated count 69.8 % low: 41%hig h: 74% Neutr ophil % 69.8 41.0 - 74.0 % 11/08 5:35 PM CDT [facility] Not Available Not Available 11/25/2024 10:16:58 11/09/19 25 11/08/2024 CBC W Auto Diffe renti al panel - Blood lymphocytes/ leukocytes in blood by automated count 17.9 % low: 17%hig h: 47% Lymph ocyte % 17.9 17.0 - 47.0 % 11/08 5:35 PM CDT [facility] Not Available Not Available 11/25/2024 10:16:58 11/09/19 25 11/08/2024 CBC W Auto Diffe renti al panel - Blood monocytes/le ukocytes in blood by automated count 10.6 % low: 3%high : 11% Monoc yte % 10.6 3.0 - 11.0 % 11/08 5:35 PM CDT [facility] Not Available Not Available 11/25/2024 10:16:58 11/09/19 25 11/08/2024 CBC W Auto Diffe renti al panel - Blood eosinophils/ leukocytes in blood by automated count 1.1 % low: 0%high : 7% Eosin ophil % 1.1 0.0 - 7.0 % 11/08 5:35 PM CDT [facility] Not Available Not Available 11/25/2024 10:16:58 11/09/19 25 11/08/2024 CBC W Auto Diffe renti al panel - Blood basophils/le ukocytes in blood by automated count 0.3 % low: 0%high : 1.6% Basop hil % 0.3 0.0 - 1.6 % 11/08 5:35 PM CDT [facility] Not Available Not Available 11/25/2024 10:16:58 11/09/19 25 11/08/2024 CBC W Auto Diffe renti al panel - Blood immature granulocytes /leukocytes in blood by automated count 0.3 % low: 0%high : 1% Immat ure Granu locyt es % 0.3 0.0 - 1.0 % 11/08 5:35 PM CDT [facility] Not Available Not Available 11/25/2024 10:16:58 11/09/19 25 11/08/2024 CBC W Auto Diffe renti al panel - Blood neutrophils [#/volume] in blood by automated count 8.11 text: 1.60 - 7.50 x10e9/ L high Neutr ophil Absol [place] 8.11 (H) 1.60 - 7.50 x10E9 /L 11/08 5:35 PM CDT [facility] Not Available Not Available 11/25/2024 10:16:58 11/09/19 25 11/08/2024 CBC W Auto Diffe renti al panel - Blood lymphocytes [#/volume] in blood by automated count 2.08 text: 1.00 - 4.40 x10e9/ L Lymph ocyte Absol [place] 2.08 1.00 - 4.40 x10E9 /L 11/08 5:35 PM CDT [facility] Not Available Not Available 11/25/2024 10:16:58 11/09/19 25 11/08/2024 CBC W Auto Diffe renti al panel - Blood monocytes [#/volume] in blood by automated count 1.23 text: 0.15 - 1.00 x10e9/ L high Monoc yte Absol [place] 1.23 (H) 0.15 - 1.00 x10E9 /L 11/08 5:35 PM CDT [facility] Not Available Not Available 11/25/2024 10:16:58 11/09/19 25 11/08/2024 CBC W Auto Diffe renti al panel - Blood eosinophils [#/volume] in blood 0.13 text: 0.00 - 0.60 x10e9/ L Eosin ophil Absol [place] 0.13 0.00 - 0.60 x10E9 /L 11/08 5:35 PM CDT [facility] Not Available Not Available 11/25/2024 10:16:58 11/09/19 25 11/08/2024 CBC W Auto Diffe renti al panel - Blood basophils [#/volume] in blood by automated count 0.04 text: 0.00 - 0.13 x10e9/ L Basop hil Absol [place] 0.04 0.00 - 0.13 x10E9 /L 11/08 5:35 PM CDT [facility] Not Available Not Available 11/25/2024 10:16:58 11/09/1911/08/2024 CBC W Auto Diffe renti al panel - Blood interpretati on and review of laboratory results Abnorm al Not Available Not Available 10:16:58 11/10/19 25 11/09/2024 Methi cilli n resis tant Staph yloco ccus aureu s (MRSA ) DNA [Pres ence] in Speci men by DOTTY with probe detec tion methicillin resistant staphylococc us aureus (MRSA) DNA [presence] in specimen by DOTTY with probe detection Not detect ed text: not detect ed MRSA DNA by PCR Not detec silvia Not detec silvia 11/09 6:35 PM CDT [facility] Not Available Not Available 11/25/2024 10:16:58 11/10/19 25 11/09/2024 Methi cilli n resis tant Staph yloco ccus aureu s (MRSA ) DNA [Pres ence] in Speci men by DOTTY with probe detec tion Unknown Analyte Methic illin- resist ant Staphy lococc us aureus (MRSA) DNA is not detect ed (presu med not coloni zed with MRSA). Methi cilli n-res istan t Staph yloco ccus aureu s (MRSA ) DNA is not detec silvia (pres umed not colon ized with MRSA) . Not Available Not Available 11/25/2024 10:16:58 11/10/19 25 11/09/2024 Methi cilli n resis tant Staph yloco ccus aureu s (MRSA ) DNA [Pres ence] in Speci men by DOTTY with probe detec tion interpretati on and review of laboratory results Normal Not Available Not Available 11/11 10:16:58 11/11/19 25 12/08/2024 Fungu s ident ified in [place] te by Cultu re microorganis m identified in specimen by culture No fungus isolat ed Cultu re No fungu s isola silvia DARIUS 12/08 9:08 AM CDT [facility] Not Available Not Available 12/11/2024 16:48:26 11/11/19 25 12/08/2024 Fungu s ident ified in [place] te by Cultu re fungus identified in specimen by fungus stain No yeast or hyphae seen Fungu s Stain No yeast or hypha e seen 12/08 9:08 AM CDT [facility] Not Available Not Available 12/11/2024 16:48:26 11/11/19 25 12/08/2024 Fungu s ident ified in [place] te by Cultu re interpretati on and review of laboratory results Normal Not Available Not Available 08/2024 16:48:26 11/11/19 25 11/12/2024 Bacte mecca ident ified in Wound by Cultu re microorganis m identified in specimen by culture No growth Cultu re No growt h DARIUS 11/12 3:45 PM CDT [facility] Not Available Not Available 11/25/2024 10:16:58 11/11/19 25 11/12/2024 Bacte mecca ident ified in Wound by Cultu re microscopic observation [identifier] in specimen by gram stain Light Polymo rphonu clear cells Gram Stain Light Polym orpho nucle ar cells 11/12 3:45 PM CDT [facility] Not Available Not Available 11/25/2024 10:16:58 11/11/19 25 11/12/2024 Bacte mecca ident ified in Wound by Cultu re microscopic observation [identifier] in specimen by gram stain No organi sms seen Gram Stain No organ isms seen 11/12 3:45 PM CDT [facility] Not Available Not Available 11/25/2024 10:16:58 11/11/19 25 11/16/2024 Bacte mecca ident ified in [place] te by Anaer obe cultu re microorganis m identified in specimen by culture No anaero bic organi sms isolat ed Cultu re No anaer obic organ isms isola silvia DARIUS 11/16 11:04 AM CDT [facility] Not Available Not Available 11/25/2024 10:16:58 11/11/19 25 11/16/2024 Bacte mecca ident ified in [place] te by Anaer obe cultu re interpretati on and review of laboratory results Normal Not Available Not Available 11/11 10:16:58 11/13/19 25 11/12/2024 Phosp hate [Mass /volu me] in Serum or Plasm a phosphate [mass/volume ] in serum or plasma 4.2 mg/dL low: 2.8mg/ dLhigh : 5.1mg/ dL Phosp horus 4.2 2.8 - 5.1 mg/dL 11/12 3:46 AM CDT [facility] [employer] [facility] Not Available Not Available 11/25/2024 10:16:59 11/13/19 25 11/12/2024 Phosp hate [Mass /volu me] in Serum or Plasm a interpretati on and review of laboratory results Normal Not Available Not Available 11/11 10:16:59 11/13/19 25 11/12/2024 Magne sium [Mass /volu me] in Serum or Plasm a magnesium [mass/volume ] in serum or plasma 2.2 mg/dL low: 1.6mg/ dLhigh : 2.6mg/ dL Magne sium 2.2 1.6 - 2.6 mg/dL 11/12 3:46 AM CDT [facility] [employer] [facility] Not Available Not Available 11/25/2024 10:16:59 11/13/19 25 11/12/2024 Magne sium [Mass /volu me] in Serum or Plasm a interpretati on and review of laboratory results Normal Not Available Not Available 11/11 10:16:59 11/13/19 25 11/12/2024 CBC panel - Blood by Autom ated count leukocytes [#/volume] in blood by automated count 7 text: 4.0 - 10.7 x10e9/ L WBC 7.0 4.0 - 10.7 x10E9 /L 11/12 3:[address] [facility] Not Available Not Available 11/25/2024 10:16:59 11/13/1911/12/2024 CBC panel - Blood by Autom ated count erythrocytes [#/volume] in blood by automated count 3.87 text: 4.30 - 5.80 x10e12 /L low RBC Count 3.87 (L) 4.30 - 5.80 x10E1 2/L 11/12 3:[address] [facility] Not Available Not Available 11/25/2024 10:16:59 11/13/1911/12/2024 CBC panel - Blood by Autom ated count hemoglobin [mass/volume ] in blood 12 g/dL low: 13.3g/ dLhigh : 17.5g/ dL low Hemog lobin 12.0 (L) 13.3 - 17.5 g/dL 11/12 3:[address] [facility] Not Available Not Available 11/25/2024 10:16:59 11/13/1911/12/2024 CBC panel - Blood by Autom ated count hematocrit [volume fraction] of blood by automated count 36.1 % low: 38.7%h igh: 51.1% low Hemat ocrit 36.1 (L) 38.7 - 51.1 % 11/12 3:[address] [facility] Not Available Not Available 11/25/2024 10:16:59 11/13/1911/12/2024 CBC panel - Blood by Autom ated count MCV [entitic mean volume] in red blood cells by automated count 93.3 fL low: 80fLhi gh: 98fL MCV 93.3 80.0 - 98.0 fL 11/12 3:[address] [facility] Not Available Not Available 11/25/2024 10:16:59 11/13/1911/12/2024 CBC panel - Blood by Autom ated count MCH [entitic mass] by automated count 31 pg low: 26.7pg high: 33.6pg MCH 31.0 26.7 - 33.6 pg 11/12 3:[facility] Not Available 11/25/2024 10:16:59 11/13/1911/12/2024 CBC panel - Blood by Autom ated count MCHC [entitic mass/volume] in red blood cells by automated count 33.2 g/dL low: 31.7g/ dLhigh : 36.3g/ dL MCHC 33.2 31.7 - 36.3 g/dL 11/12 3:26 [facility] Not Available 11/25/2024 10:16:59 11/13/19 25 11/12/2024 CBC panel - Blood by Autom ated count erythrocyte [distwidth] in red blood cells by automated count 13.4 % low: 11.3%h igh: 14.8% RDW-C V 13.4 11.3 - 14.8 % 11/12 3:26 [facility] Not Available 11/25/2024 10:16:59 11/13/19 25 11/12/2024 CBC panel - Blood by Autom ated count platelets [#/volume] in blood by automated count 295 text: 150 - 420 x10e9/ L Plate let Count 295 150 - 420 x10E9 /L 11/12 3:26 [facility] Not Available 11/25/2024 10:16:59 11/13/1911/12/2024 CBC panel - Blood by Autom ated count platelet [entitic mean volume] in blood by automated count 10.1 fL low: 7.8fLh igh: 11.4fL MPV 10.1 7.8 - 11.4 fL 11/12 3:26 [facility] Not Available 11/25/2024 10:16:59 11/13/19 25 11/12/2024 CBC panel - Blood by Autom ated count interpretati on and review of laboratory results Abnorm al Not Available Not Available 10:16:59 11/13/19 25 11/12/2024 Basic metab olic 2000 panel - Serum or Plasm a urea nitrogen [mass/volume ] in serum or plasma 12 mg/dL low: 7mg/dL high: 26mg/d L BUN 12 7 - 26 mg/dL 11/12 3:46 AM CDT [facility] Not Available Not Available 11/25/2024 10:16:59 11/13/1911/12/2024 Basic metab olic 1999 panel - Serum or Plasm a creatinine [mass/volume ] in serum or plasma 0.84 mg/dL low: 0.71mg /dLhig h: 1.16mg /dL Creat inine 0.84 0.71 - 1.16 mg/dL 11/12 3:46 AM CDT [facility] Not Available Not Available 11/25/2024 10:16:59 11/13/1911/12/2024 Basic metab olic 1999 panel - Serum or Plasm a sodium [moles/volum e] in serum or plasma 140 mmol/ L low: 136mmo l/Lhig h: 145mmo l/L Sodiu m 140 136 - 145 mmol/ L 11/12 3:46 AM CDT [facility] Not Available Not Available 11/25/2024 10:16:59 11/13/1911/12/2024 Basic metab olic 1999 panel - Serum or Plasm a potassium [moles/volum e] in serum or plasma 4.3 mmol/ L low: 3.5mmo l/Lhig h: 4.5mmo l/L Potas sium 4.3 3.5 - 4.5 mmol/ L 11/12 3:46 AM T [facility] Not Available Not Available 11/25/2024 10:16:59 11/13/19 25 11/12/2024 Basic metab olic 1999 panel - Serum or Plasm a chloride [moles/volum e] in serum or plasma 108 mmol/ L low: 98mmol /Lhigh : 107mmo l/L high Chlor kwame 108 (H) 98 - 107 mmol/ L 11/12 3:46 AM CDT [facility] Not Available Not Available 11/25/2024 10:16:59 11/13/19 25 11/12/2024 Basic metab olic 1999 panel - Serum or Plasm a carbon dioxide, total [moles/volum e] in serum or plasma 22 mmol/ L low: 22mmol /Lhigh : 29mmol /L CO2 22 22 - 29 mmol/ L 11/12 3:46 AM CDT [facility] Not Available Not Available 11/25/2024 10:16:59 11/13/19 25 11/12/2024 Basic metab olic 1999 panel - Serum or Plasm a glucose [mass/volume ] in serum or plasma 101 mg/dL low: 70mg/d Lhigh: 99mg/d L high Gluco se 101 (H) 70 - 99 mg/dL 11/12 3:46 AM CDT [facility] Not Available Not Available 11/25/2024 10:16:59 11/13/19 25 11/12/2024 Basic metab olic 1999 panel - Serum or Plasm a calcium [moles/volum e] in serum or plasma 9.1 mg/dL low: 8.4mg/ dLhigh : 10.2mg /dL Calci um 9.1 8.4 - 10.2 mg/dL 11/12 3:46 AM CDT [facility] [facility] Not Available Not Available 11/25/2024 10:16:59 11/13/19 25 11/12/2024 Basic metab olic 2000 panel - Serum or Plasm a anion gap 10 low: 6high: 16 Anion Gap 10 6 - 16 11/12 3:46 AM T [facility] Not Available Not Available 11/25/2024 10:16:59 11/13/19 25 11/12/2024 Basic metab olic 2000 panel - Serum or Plasm a urea nitrogen/cre atinine [mass ratio] in serum or plasma 14 low: 7high: 23 BUN/C reati nine Ratio 14 7 - 23 11/12 3:46 AM T [facility] Not Available Not Available 11/25/2024 10:16:59 11/13/19 25 11/12/2024 Basic metab olic 2000 panel - Serum or Plasm a osmolality calculated 290 text: 275 - 295 mOsm/k g Osmol ality Calcu lated 290 275 - 295 mOsm/ kg 11/12 3:46 AM CDT [facility] Not Available Not Available 11/25/2024 10:16:59 11/13/19 25 11/12/2024 Basic metab olic 2000 panel - Serum or Plasm a glomerular filtration rate [volume rate/area] in serum, plasma or blood by creatinine-b ased formula (CKD-epi 2020)/1.73 sq M text: >=90 mL/min /1.73 m2 eGFR by CKD-E PI >90 >=90 mL/mi n/1.7 3 m2 11/12 3:46 AM CDT [facility] Not Available Not Available 11/25/2024 10:16:59 11/13/19 25 11/12/2024 Basic metab olic 2000 panel - Serum or Plasm a interpretati on and review of laboratory results Abnorm al Not Available Not Available 10:16:59 08/11/20 24 08/11/2024 XR, chest , 2 view No observ ation record ed. [address] [place] [address], [address], 08/11/2024 13:44:45 10/14/19 imagi ng/nuvia vasquezos tic resul t No observ ation record ed. Not Available 2024 10:52:05 10/28/19 25 10/27/2024 XR, wrist , 3 or more view No observ ation record ed. [address], [place], [address], 10/27/2024 12:10:45 10/28/19 25 10/27/2024 XR, foot, 3 or more view No observ ation record ed. [address], [place], [address], 10/29/2024 14:11:02 10/28/19 25 10/27/2024 XR, wrist , 3 or more view No observ ation record ed. [facility] [address] [place] [address], [address], 10/27/2024 14:43:28 11/09/19 25 11/08/2024 CT, angio gram, abdom en + pelvi s + lower extre mity, w/wo contr ast No observ ation record ed. [address], [place], [address], 11/10/2024 13:57:18 Result Notes None recorded. Problems Name Problem SNOMED Code Status Onset Date Resolution Date Notes Provider Name and Address Organization Details Recorded Time Chronic back pain 431941993 Active 2020 Not Available [facility] 4 22:38:43 Insomnia 485885801 Active 2021 Not Available [facility] 4 22:38:43 Colonosc opy declined 59037321594 9100 Active 2021 Not Available [facility] 4 22:38:43 Smoker 84078836 Active 2021 Not Available [facility] 4 22:38:43 Obesity 514700273 Active 2022 Not Available [facility] 4 22:38:43 Alcoholi sm 8505100 Completed 202211/13/2023 Removal Reason: in remissio n ROYA GARCIA Attn: Accounting ,[address] 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, [place], [address] , [place] [facility] 4 15:31:31 Chronic obstruct cheyanne pulmonar y disease 52521511 Active 2023 ROYA GARCIA Attn: Accounting ,[address] [facility], [place], [address] , [place] [facility] 4 12:40:00 Wheezing 20617139 Active 2024 ROYA GARCIA Attn: Accounting ,[address] [place], [address] , [place] [facility] 5 10:03:03 Swelling of bilatera l lower limbs 650035585 Active 2024 ROYA GARCIA Attn: Accounting ,[address] [place], [address] , [place] [facility] 5 10:03:05 [facility] hyperten emmett 39553287 Active 2016 Not Available [facility] 4 22:38:43 Mild persiste nt asthma 445730830 Active 2016 Not Available [facility] 4 22:38:43 Depressi ve disorder 10194912 Completed 201609/11/2019 ROYA GARCIA Attn: Accounting ,[address] [place], [address] , [facility] 0 12:32:16 Problem Notes None recorded. Procedures Surgical History Date Name Laterality Status Provider Name and Address Organization Details Recorded Time 5 Suture/Stapl e removal completed ROYA GARCIA Attn: Accounting,[address] [place], [address], [facility] 11/04/2024 08:16:02 3 Back Surgery completed ROYA GARCIA Attn: Accounting,[address] [place], [address], [place] [facility] 06/30/2024 12:37:50 Imaging Results None [...] 10 mg-hydroch lorothiazi de 12.5 mg tablet Take 1 tablet by mouth once daily 2024 active Not Available Not Available Not Avai lable albuterol sulfate HFA 90 mcg/actuat ion aerosol inhaler INHALE 2 PUFFS BY MOUTH EVERY 4 TO 6 HOURS NEEDED 2024 active Not Available Not Available Not Avai lable ketoconazo le 2 % topical cream APPLY [...] THREE TIMES DAILY NEEDED FOR 15 DAYS 10/02 /2023 completed Not Available Not Available Not Available [...] Updated DateTime 5 185.42 cm 30.2 kg/m2 270191. 65 g 95 % 95 % 108 /min 134 mm[Hg] 67 mm[Hg] Aline Nagy [place] - [facility] 5 15:26:50 Date Recorded Body height Body mass index (BMI) Body weight Heart rate Oxygen saturation Oxygen saturation in Arterial blood by Pulse oximetry Systolic blood pressure Diastolic blood pressure Provider Name and Address Organization Details Last Updated DateTime 5 185.42 cm 30.3 kg/m2 369953. 25 g 91 /min 97 % 97 % 136 mm[Hg] 86 mm[Hg] Aline Nagy [place] [facility] 5 08:54:37 Date Recorded Body height Body mass index (BMI) Body weight Heart rate Systolic blood pressure Diastolic blood pressure Provider Name and Address Organization Details Last Updated DateTime 5 185.42 cm 30.2 kg/m2 414519. 65 g 88 /min 118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
== END 2025-01-12 10:22 | disposition home or self-care (01) ==
PROVIDERS: PCP Internal Medicine; Visit Provider Physician Assistant
DX: M25.561 Pain in right knee (principal)
CPT/HCPCS: 73562

== ENCOUNTER 2025-04-19 12:56 | Emergency (ER) | payer OTHER, SELFPAY ==
--- NOTE | ~2025-04-19 | XR_ITS ---
EXAMINATION: [id number], 04/19/2025 13:08 CDT HISTORY: LEFT SIDED RIB PAIN COMPARISON: No comparisons available. Findings: No acute fracture or malalignment. No significant degenerative changes. Soft tissues unremarkable. Impression: No acute fracture or malalignment. Reviewed, dictated and finalized at location A. Impression: No acute fracture or malalignment.
[2025-04-19 13:01] VITALS: BP 137/82; PULSE 87; RESP 20; TEMP 36.4; O2SAT 99
--- NOTE | 2025-04-19 13:01 | ED_ITS ---
HPI - Chest Pain General Chief Complaint: Unspecified Stated Complaint: rib pain patient presents to the [facility] with complaints of left-sided rib pain that began about 1 week ago. Patient denies any fall but does report having a significant coughing fit and was bending over a chair Felty significant pain in this area. Patient reports pain has continued has been attempting to take Tylenol and ibuprofen which have not relieved any symptoms. Yesterday patient was trying to stretch the area out and pain got much worse. Pain now with moving the left arm. Denies redness, bruising, swelling to the area. Related Data Home Medications ?Medication ?Instructions ?Recorded ?Confirmed ?Last Taken ?Type budesonide-formoterol HFA 160 160 inh inhalation DI RECTED 05/03/22 04/16/25 Unknown History mcg-4.5 mcg/actuation aerosol inhaler (Symbicort) lisinopril 10 1 tablet PO DAILY 08/20/24 0 04/16/25 Unknown History mg-hydrochlorothiazide 12.5 mg tablet Allergies Allergy/AdvReac Type Severity Reaction Status Date / Time No Known Allergies Allergy Verified 04/19/25 13:01 Review of Systems Constitutional: Constitutional: Reports as per HPI, Denies chills, Denies fatigue, Denies fever(s) and Denies weakness Eyes: Eyes: Reports no additional eye complaints ENT: Reports system reviewed and no additional complaints, except as documented Cardiovascular: Cardiovascular: Reports no additional cardiovascular complaints Respiratory: Respiratory: Reports no additional respiratory complaints Gastrointestinal: Gastrointestinal: Reports no additional gastrointestinal complaints Genitourinary: Genitourinary: Reports no additional male genitourinary complaints Musculoskeletal: Musculoskeletal: Reports as per HPI, Reports arthralgias ( Left side ribs), Denies joint swelling and Denies muscle cramps Integumentary/Breasts: Skin/Breast: Reports as per HPI, Denies pruritus, Denies erythema and Denies rash Neurologic: Reports as per HPI, Denies headache(s) and Denies weakness Psychiatric: Psychiatric: Reports no additional psychiatric complaints Endocrine: Endocrine: Reports no additional endocrine complaints Hematologic/Lymphatic: Hematologic/Lymphatic: Reports no additional hematologic/lymphatic complaints Allergic/Immunologic: Allergic/Immunologic: Reports no additional allergic/immunologic complaints [facility] Past Medical History Medical History (Updated 04/19/25 @ 13:34 by Johanna D. Galletta, EXCELLENCE SPECIALIST-C) Fractured skull back left side of his skull Late Pre-diabetes COPD (chronic obstructive pulmonary disease) Anxiety Hypertension Asthma Surgical History Surgical History History of lumbar fusion Family History Family History Mother Family history of hepatitis Depression Asthma Family history of alcoholism Other Anxiety Cancer Cerebrovascular accident Heart problem Hypertension Social History Social History Smoking packs per day: 2 Smoking cigarettes per day: 40.0 Years smoked: 32 Smoking pack-years: 64.00 Smoking status: Current every day smoker Tobacco type: cigarettes Second hand tobacco smoke exposure: Yes Alcohol intake: current Alcohol use details: 12 pack a day Substance use: current Substance use type: marijuana Other substance usage details: Daily Do You Feel Safe in your Home?: Yes Lack of Transportation: No Lack of Food: Never True Current Housing: I Have Housing Concerned About Future Housing: No Difficulty Paying Gas/Electric Bills: YES Difficulty Paying for Meds: No Currently Unemployed: No Education: Decline to Answer Difficulty w/ Childcare or Family Care: No Living arrangements: with family Occupation/Education: occupation Gender identity (if verbalized by the patient): Male Spiritual care concerns: No Agree to blood products: Yes Exam Const: General: healthy appearing and no acute distress Nutritional Appearance: well nourished Orientation/consciousness: patient oriented x3 Limitations: no limitations Chest: Chest palpation & inspection: normal inspection of the chest, tenderness rib (left posterior ) and No Pacemaker present Resp: Effort & Inspection: normal respiratory effort Auscultation: rhonchi and wheezes Other: cough noted Cardio: Rate: regular rate Rhythm: regular rhythm Skin: General skin exam: normal color Rashes: no rashes Wounds: no wounds Neuro: General: patient oriented x3 Speech: normal speech Gait exam (Neuro): Normal gait present Psych: Mental Status: mental status grossly normal Affect: normal affect Attitude: cooperative Course Course Level of Care: Express Care Visit Vital Signs Vital signs: Vital Signs Temperature 97.6 F 04/19/25 13:01 Pulse Rate 87 04/19/25 13:01 Respiratory Rate 20 04/19/25 13:01 Blood Pressure 137/82 04/19/25 13:01 Pulse Oximetry 99 04/19/25 13:01 Oxygen Delivery Room Air 04/19/25 13:01 Temperature 97.6 F 04/19/25 13:01 Pulse Rate 87 04/19/25 13:01 Respiratory Rate 20 04/19/25 13:01 Blood Pressure 137/82 04/19/25 13:01 Pulse Oximetry 99 04/19/25 13:01 Oxygen Delivery Room Air 04/19/25 13:01 MDM - Chest Pain MDM Narrative Medical decision making narrative: spoke with patient about overall symptoms, noted my review of x-rays that show ed fracture 1 rib. Will discharge patient with muscle relaxers and pain medication. Educated patient to not take these medications together see which 1 does work best for him in pain educated patient deep breathing exercises and exercises. 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 The patient was evaluated by myself in the [facility]. History is obtained from patient who is an independent historian and physical exam was performed. Available medical records were reviewed at this time. Exam findings show no acute concerns or changes; patient is non-toxic appearing and is in no distress. Patient is appropriate for outpatient treatment and follow-up. I have evaluated and discussed social determinants of health with the patient that could potentially impact subsequent diagnosis and treatment plans. Differential diagnosis and treatment plan were discussed with the patient. Patient agrees with discussion and after shared medical decision making agrees with plan of care. All questions were answered to the patient's satisfaction. Differential Diagnosis Differential diagnosis: Likely fracture of rib, pneumothorax, atypical chest pain, costochondritis and chest pain Medical Records Data Attestation: I reviewed the patient's medical records. Imaging Data Attestation: I personally reviewed and interpreted this imaging study as follows: My impression: Rib fracture noted 8th rib Discharge Plan Discharge Clinical Impression: Rib pain on left side Patient Disposition: Home Condition: Stable Instructions: Antibiotic Form, How to Use an Incentive Spirometer (ED), Rib Fracture (ED) Additional Instructions: There is a no fracture shown your x-ray. given the location of your injury and significant coughing due to your COPD and lung disease this will likely take several weeks to completely heal. Ice to the area 15-20 minutes 4-6 times a day as needed Minimize activities and rest the affected area as much as possible. You may take over the counter tylenol and ibuprofen as needed for pain. May use the Hydrocodone or cyclobenzaprine as needed for severe pain, do not take these medications together. This medication can make you drowsy do not drive, drink alcohol or operate heavy machinery while taking this medication. Patient Language: Czech Prescriptions: New hydrocodone-acetaminophen 5-325 mg tablet 1 tablet PO Q6H PRN (Reason: pain) Qty: 14 0RF cyclobenzaprine 10 mg tablet 10 mg PO TID PRN (Reason: muscle spasm) Qty: 25 0RF No Action budesonide-formoterol [Symbicort] 160-4.5 mcg/actuation HFA aerosol inhaler 160 inh INHALATION DIRECTED albuterol sulfate [Ventolin HFA] 90 mcg/actuation HFA aerosol inhaler 2 puff inhalation QID PRN (Reason: shortness of breath or wheezing) Qty: 8.5 0RF lisinopril-hydrochlorothiazide 10-12.5 mg tablet 1 tablet PO DAILY alprazolam 0.5 mg tablet 0.5 mg PO ONCE Qty: 2 0RF Rx Instructions: take 1 tablet the morning prior to procedure. May repeat times once. Tell your health care provider that you took this when you arrive for the procedure Follow-up/Referrals: Alex Hopkins, [Primary Care Provider, Internal Medicine] Stand Alone Forms: Work/School Release IP Time of Disposition: 13:29
== END 2025-04-19 13:35 | disposition home or self-care (01) ==
PROVIDERS: Emergency Provider Nurse Practitioner Family; PCP Internal Medicine
DX: R07.89 Other chest pain (principal); J44.9 Chronic obstructive pulmonary disease, unspecified; I10 Essential (primary) hypertension; J45.909 Unspecified asthma, uncomplicated; R73.03 Prediabetes; F41.9 Anxiety disorder, unspecified; F17.210 Nicotine dependence, cigarettes, uncomplicated; F12.90 Cannabis use, unspecified, uncomplicated
CPT/HCPCS: 71101; 99213; G0463